=== PATIENT | female | born 1960 | race African-American/Black ===

== ENCOUNTER 2017-06-11 10:14 | Emergency (ER) | payer MEDICARE, MEDICAID ==
[~2017-06-11] VITALS: Ht 167.6 cm; Wt 75.7 kg
[2017-06-11 10:30] VITALS: BP 144/92
== END 2017-06-11 11:16 | disposition left against medical advice (07) ==
LOC: ER 10:14
DX: R42 Dizziness and giddiness (principal); Z53.21 Procedure and treatment not carried out due to patient leaving prior to being seen by health care provider
CPT/HCPCS: 82962; 93005

== ENCOUNTER 2017-11-07 07:57 | Emergency (ER) | payer MEDICARE, MEDICAID ==
[~2017-11-07] VITALS: Ht 170.2 cm; Wt 74.4 kg
[2017-11-07 08:40] VITALS: BP 184/110
[2017-11-07 08:45] LABS: Urine Bacteria NONE SEEN /hpf (None Seen); Urine Blood TRACE /uL (Negative); Urine Specific Gravity 1.019 (1.001-1.035); Urine WBC 1 /hpf (0 - 5)
[2017-11-07 09:05] LABS: Basophils # (auto) 0.1 uL; Eosinophils # (auto) 0.1 uL; Eosinophils % (auto) 2.4 % (0.0-7.0); Hematocrit 35.1 % (36.0-46.0); Hemoglobin 12.4 g/dL (12.2-16.2); Lymphocytes % (auto) 36.6 % (10.0-50.0); Mean Corpuscular Hemoglobin 32.1 pg (28.0-32.0); Mean Corpuscular Hgb Conc. 35.2 g/dL (32.0-36.0); Monocytes # (auto) 0.5 uL; Monocytes % (auto) 8.3 % (0.0-12.0); Neutrophils # (auto) 2.8 uL; Neutrophils % (auto) 51.7 % (37.0-80.0); Nucleated Red Blood Cells % 0.1 %; Platelet Count (auto) 415 10^3/uL (140-450); Red Blood Cells 3.85 10^6/uL (4.0-5.20); Red Cell Distribution Width 12.7 % (11.8-14.3); White Blood Cell 5.5 10^3/uL (4.4-10.8)
[2017-11-07 09:27] LABS: Albumin 3.5 g/dL (3.4-5.0); BUN/Creatinine Ratio 12.7; Bilirubin, Total 0.4 mg/dL (0.2-1.0); Calcium 9.1 mg/dL (8.5-10.1)
[2017-11-07] MEDS ORDERED: NITROFURANTOIN (MONO) 100 mg CAP PO ONE (10:00)
== END 2017-11-07 11:26 | disposition home or self-care (01) ==
LOC: ER 07:57
DX: N39.0 Urinary tract infection, site not specified (principal); E11.9 Type 2 diabetes mellitus without complications; I10 Essential (primary) hypertension; E78.5 Hyperlipidemia, unspecified; J45.909 Unspecified asthma, uncomplicated; Z88.2 Allergy status to sulfonamides; Z88.1 Allergy status to other antibiotic agents; Z98.51 Tubal ligation status
CPT/HCPCS: 36415; 74176; 80053; 81001; 85025; 93005

== ENCOUNTER 2017-12-12 19:55 | Emergency (ER) | payer MEDICARE, MEDICAID ==
[~2017-12-12] VITALS: Ht 170.2 cm; Wt 75.7 kg
[2017-12-12 20:17] VITALS: BP 163/97
[2017-12-12 21:03] LABS: Basophils # (auto) 0.1 uL; Basophils % (auto) 1.3 % (0.0-2.0); Eosinophils # (auto) 0.2 uL; Eosinophils % (auto) 3.5 % (0.0-7.0); Hematocrit 38.5 % (36.0-46.0); Hemoglobin 13.2 g/dL (12.2-16.2); Lymphocytes # (auto) 2.2 uL; Lymphocytes % (auto) 38.9 % (10.0-50.0); Mean Corpuscular Hemoglobin 31.7 pg (28.0-32.0); Mean Corpuscular Hgb Conc. 34.3 g/dL (32.0-36.0); Mean Corpuscular Volume 92.6 fL (80.0-100.0); Monocytes # (auto) 0.5 uL; Monocytes % (auto) 8.2 % (0.0-12.0); Neutrophils # (auto) 2.7 uL; Neutrophils % (auto) 48.1 % (37.0-80.0); Nucleated Red Blood Cells % 0.2 %; Platelet Count (auto) 456 10^3/uL (140-450); Red Blood Cells 4.16 10^6/uL (4.0-5.20); Red Cell Distribution Width 12.9 % (11.8-14.3); White Blood Cell 5.6 10^3/uL (4.4-10.8)
[2017-12-12 21:17] LABS: INR 0.92 (0.9-1.15); Partial Thromboplastin Time 27.3 sec (23.78-33.04); Prothrombin Time 9.9 sec (9.27-12.13)
[2017-12-12 21:24] LABS: Alanine Aminotransferase 30 U/L (13-56); Albumin 3.9 g/dL (3.4-5.0); Alkaline Phosphatase 142 U/L (45-117); Anion Gap 9 (5-15); Aspartate Aminotransferase 15 U/L (15-37); BUN/Creatinine Ratio 12.9; Bilirubin, Total 0.4 mg/dL (0.2-1.0); Blood Urea Nitrogen 16 mg/dL (7-18); Calcium 9.1 mg/dL (8.5-10.1); Carbon Dioxide 26 mmol/L (21-32); Chloride 106 mmol/L (98-107); GFR African American 57 mL/min; GFR Non-African American 47 mL/min; Glucose 168 mg/dL (74-106); Potassium 3.5 mmol/L (3.5-5.1); Sodium 141 mmol/L (136-145); Total Protein 8.5 g/dL (6.4-8.2)
== END 2017-12-13 02:30 | disposition left against medical advice (07) ==
LOC: ER 19:55
DX: R03.0 Elevated blood-pressure reading, without diagnosis of hypertension (principal); Z53.21 Procedure and treatment not carried out due to patient leaving prior to being seen by health care provider
CPT/HCPCS: 36415; 70450; 80053; 83880; 84484; 85025; 85610; 85730; 93005; J7030

== ENCOUNTER 2018-06-17 15:26 | Emergency (ER) | payer MEDICARE, MEDICAID ==
[~2018-06-17] VITALS: Ht 170.2 cm; Wt 74.8 kg
[2018-06-17] MEDS ORDERED: LABETALOL HCL 5 MG/ML ML 20ML VIAL IV ONE ×3 (16:00→20:00)
[2018-06-17 17:12] LABS: Basophils # (auto) 0 uL; Basophils % (auto) 0.8 % (0.0-2.0); Eosinophils # (auto) 0.3 uL; Eosinophils % (auto) 4.8 % (0.0-7.0); Hematocrit 34.9 % (36.0-46.0); Hemoglobin 12.1 g/dL (12.2-16.2); Lymphocytes % (auto) 32.9 % (10.0-50.0); Mean Corpuscular Hemoglobin 32.1 pg (28.0-32.0); Mean Corpuscular Hgb Conc. 34.5 g/dL (32.0-36.0); Mean Corpuscular Volume 92.8 fL (80.0-100.0); Monocytes # (auto) 0.7 uL; Neutrophils # (auto) 3.1 uL; Neutrophils % (auto) 50.5 % (37.0-80.0); Nucleated Red Blood Cells % 0.1 %; Platelet Count (auto) 439 10^3/uL (140-450); Red Blood Cells 3.76 10^6/uL (4.0-5.20); Red Cell Distribution Width 12.3 % (11.8-14.3); White Blood Cell 6.2 10^3/uL (4.4-10.8)
[2018-06-17 17:28] LABS: Calcium 8.9 mg/dL (8.5-10.1); Chloride 108 mmol/L (98-107); Potassium 3.7 mmol/L (3.5-5.1); Sodium 139 mmol/L (136-145)
[2018-06-17 17:36] LABS: Alanine Aminotransferase 27 U/L (13-56); Albumin 3.3 g/dL (3.4-5.0); Alkaline Phosphatase 106 U/L (45-117); Anion Gap 5 (5-15); Aspartate Aminotransferase 16 U/L (15-37); BUN/Creatinine Ratio 13.1; Bilirubin, Total 0.3 mg/dL (0.2-1.0); Blood Urea Nitrogen 17 mg/dL (7-18); Carbon Dioxide 26 mmol/L (21-32); GFR African American 54 mL/min; GFR Non-African American 45 mL/min; Glucose 115 mg/dL (74-106); Magnesium 2.2 mg/dL (1.6-2.6); Total Protein 7.7 g/dL (6.4-8.2)
[2018-06-17] MEDS ORDERED: IOHEXOL 300 MG/ML 100ML BOTTLE IJ ONE (18:51)
[2018-06-17] MEDS ORDERED: hydrALAZINE HCL 20 MG/ML VL IV ONE (20:00)
[2018-06-17 21:55] VITALS: BP 162/95
[2018-06-17 22:39] LABS: Urine Bacteria NONE SEEN /hpf (None Seen); Urine Blood Negative /uL (Negative); Urine WBC 9 /hpf (0 - 5)
[2018-06-17 22:43] LABS: Urine Specific Gravity > 1.050 (1.001-1.035)
== END 2018-06-17 22:10 | disposition home or self-care (01) ==
LOC: ER 15:26
DX: R07.89 Other chest pain (principal); I10 Essential (primary) hypertension; E11.21 Type 2 diabetes mellitus with diabetic nephropathy; K62.5 Hemorrhage of anus and rectum; E44.1 Mild protein-calorie malnutrition; J45.909 Unspecified asthma, uncomplicated; E78.5 Hyperlipidemia, unspecified; Z68.25 Body mass index [BMI] 25.0-25.9, adult; Z98.51 Tubal ligation status; Z88.2 Allergy status to sulfonamides
CPT/HCPCS: 36415; 74177; 80053; 81001; 83735; 84484; 85025; 93005; 96374; 96375; 96376; 99284; J0360; Q9967

== ENCOUNTER 2018-08-25 16:04 | Emergency (ER) | payer MEDICARE, MEDICAID ==
[~2018-08-25] VITALS: Ht 170.2 cm; Wt 72.6 kg
[2018-08-25] MEDS ORDERED: cloNIDine HCL 0.1 MG TAB ONE (16:21)
[2018-08-25] MEDS ORDERED: NIFEdipine 10 MG CAP PO ONE (16:45)
[2018-08-25 17:31] VITALS: BP 172/94
== END 2018-08-25 17:32 | disposition home or self-care (01) ==
LOC: ER 16:07
DX: I16.0 Hypertensive urgency (principal); I10 Essential (primary) hypertension; J45.909 Unspecified asthma, uncomplicated; R51 Headache; E11.9 Type 2 diabetes mellitus without complications; E78.5 Hyperlipidemia, unspecified; Z98.51 Tubal ligation status; Z88.2 Allergy status to sulfonamides; Z88.6 Allergy status to analgesic agent

== ENCOUNTER → 2019-05-23 | Outpatient (CLI) | payer MEDICARE, MEDICAID ==
[~2019-05-23] MED LIST: ALBU2TAB4 PO; ASPI-498 OR; BENA5TAB5 PO; HYDR-531 PO; INSLANTI SC; IOHEXOL 350 MG/ML 100ML IJ ONE; METO25TA5 PO; NIFE10CA3 PO; ROSU1TAB12 PO
[2019-05-23 09:03] VITALS: BP 162/97
--- NOTE | 2019-05-23 09:03 | NUR ---
CHF PT ARRIVED AT THE CHF CLINIC FOR CT OF THE CAROTIDS. PT A/O X 3 0 DISTRESS VSS
--- NOTE | 2019-05-23 09:10 | NUR ---
IV insertion IV access obtained, via clean sterile technique by inserting 20 gauge catheter at after 1 attempt(s). IV secured properly. No trauma to site. Patient tolerated procedure well.
--- NOTE | 2019-05-23 10:35 | NUR ---
IV removal IV DC'd with sterile technique, catheter fully intact. Pressure dressing applied to site. Patient tolerated procedure well. Discharged with aftercare instructions per MD. NOTE:
[2019-05-23 10:40] VITALS: BP 137/81
--- NOTE | 2019-05-23 10:40 | NUR ---
Discharge Instructions See e-MAR for any mediations given with this visit. Patient education given on disease process. Patient verbalized understanding. Previous labs reviewed. Patient discharged in stable condition with after care instructions and follow up appointment. ENCOURAGED PATIENT TO HYDRATE CREA 1.30 PT VERBALIZED UNDERSTANDING TO HYDRATE WELL TODAY
== END | disposition home or self-care (01) ==
LOC: Rad HDHVI 08:43
PROVIDERS: ATTEND Internal Medicine
DX: I65.22 Occlusion and stenosis of left carotid artery (principal); R94.4 Abnormal results of kidney function studies; E78.5 Hyperlipidemia, unspecified; E11.9 Type 2 diabetes mellitus without complications; I10 Essential (primary) hypertension
CPT/HCPCS: 36415; 70498; 82565; G0463; Q9967

== ENCOUNTER → 2019-06-29 | Outpatient (CLI) | payer MEDICARE, MEDICAID ==
[~2019-06-29] MED LIST changes: +ASPI-404 PO; +CLOP75TA28 PO; +FOLI1TAB6 PO; +HYDR-4072 PO; -IOHEXOL 350 MG/ML 100ML IJ ONE; +METO-158 PO; +NIFE90TA49 PO; +PANT40T PO; +ROSU1TAB15 PO
[2019-06-29 10:10] VITALS: BP 150/97
[2019-06-29 10:35] VITALS: BP 153/101
--- NOTE | 2019-06-29 10:35 | NUR ---
Pre-Op Discharge Summary: See e-MAR for any medications given for this visit. Pre-op orders received and carried out per MD of EKG, LABS and chest xrays. Patient given a copy of EKG with instructions to go to [facility] out patient for further follow up care.
[2019-06-29 12:03] LABS: Basophils # (auto) 0 uL; Eosinophils # (auto) 0.2 uL; Hemoglobin 13.3 g/dL (12.2-16.2); Monocytes # (auto) 0.4 uL; Neutrophils # (auto) 3.1 uL; Nucleated Red Blood Cells % 0.1 %; White Blood Cell 5.9 10^3/uL (4.4-10.8)
[2019-06-29 12:05] LABS: Basophils % (auto) 0.6 % (0.0-2.0); Eosinophils % (auto) 2.9 % (0.0-7.0); Hematocrit 38.1 % (36.0-46.0); Lymphocytes # (auto) 2.1 uL; Lymphocytes % (auto) 36.2 % (10.0-50.0); Mean Corpuscular Hgb Conc. 34.8 g/dL (32.0-36.0); Mean Corpuscular Volume 91.9 fL (80.0-100.0); Monocytes % (auto) 6.9 % (0.0-12.0); Neutrophils % (auto) 53.4 % (37.0-80.0); Platelet Count (auto) 464 10^3/uL (140-450); Red Blood Cells 4.15 10^6/uL (4.0-5.20); Red Cell Distribution Width 12.8 % (11.8-14.3)
[2019-06-29 12:16] LABS: Potassium 3.9 mmol/L (3.5-5.1)
[2019-06-29 12:19] LABS: BUN/Creatinine Ratio 18.3; Calcium 9.6 mg/dL (8.5-10.1)
[2019-06-29 12:39] LABS: INR 0.97 (0.9-1.15); Partial Thromboplastin Time 27.2 sec (23.64-32.05)
== END | disposition home or self-care (01) ==
LOC: Rad HDHVI 09:50
PROVIDERS: ATTEND Internal Medicine
DX: Z01.812 Encounter for preprocedural laboratory examination (principal)
CPT/HCPCS: 36415; 71046; 80048; 85025; 85610; 85730; 93005; G0463

== ENCOUNTER 2019-09-06 10:04 | Emergency (ER) | payer MEDICARE, MEDICAID ==
[~2019-09-06] VITALS: Ht 170.2 cm; Wt 74.4 kg
[~2019-09-06 10:04] MED LIST changes: -ALBU2TAB4 PO; -ASPI-498 OR; -BENA5TAB5 PO; -HYDR-531 PO; -METO25TA5 PO; -NIFE10CA3 PO; -ROSU1TAB12 PO
[2019-09-06] MEDS ORDERED: LABETALOL HCL 5 MG/ML 4ML SYRINGE IV ONE (10:15)
[2019-09-06] MEDS ORDERED: cefTRIAXone 1GM/50ML D5W 50 ML IV ONE (10:15)
[2019-09-06 10:37] LABS: Eosinophils # (auto) 0.1 10 ^3/uL (0-0.8); Monocytes # (auto) 0.7 10 ^3/uL (0-1.3)
[2019-09-06 10:39] LABS: Basophils # (auto) 0.1 10 ^3/uL (0-0.2); Basophils % (auto) 0.7 % (0.0-2.0); Eosinophils % (auto) 1.3 % (0.0-7.0); Hematocrit 38.3 % (36.0-46.0); Hemoglobin 12.9 g/dL (12.2-16.2); Lymphocytes % (auto) 27.3 % (10.0-50.0); Mean Corpuscular Hgb Conc. 33.8 g/dL (32.0-36.0); Mean Corpuscular Volume 91.8 fL (80.0-100.0); Monocytes % (auto) 9.5 % (0.0-12.0); Neutrophils # (auto) 4.6 10 ^3/uL (1.6-8.6); Neutrophils % (auto) 61.2 % (37.0-80.0); Platelet Count (auto) 467 10^3/uL (140-450); Red Blood Cells 4.17 10^6/uL (4.0-5.20); Red Cell Distribution Width 12.9 % (11.8-14.3); White Blood Cell 7.5 10^3/uL (4.4-10.8)
[2019-09-06] MEDS ORDERED: cefTRIAXone SOD 1,000 MG VL IM ONE (10:45)
[2019-09-06 11:05] LABS: Albumin 3.5 g/dL (3.4-5.0); Anion Gap 6 (5-15); Blood Urea Nitrogen 15 mg/dL (7-18); Calcium 9.3 mg/dL (8.5-10.1); Carbon Dioxide 26 mmol/L (21-32); Chloride 108 mmol/L (98-107); Glucose 112 mg/dL (74-106); Potassium 3.7 mmol/L (3.5-5.1); Sodium 140 mmol/L (136-145)
[2019-09-06 11:11] LABS: Alanine Aminotransferase 57 U/L (13-56); Alkaline Phosphatase 188 U/L (45-117); Aspartate Aminotransferase 29 U/L (15-37); BUN/Creatinine Ratio 13.9; Bilirubin, Total 0.3 mg/dL (0.2-1.0); GFR African American 67 mL/min; GFR Non-African American 55 mL/min; Total Protein 8.7 g/dL (6.4-8.2)
[2019-09-06 12:23] VITALS: BP 149/83
== END 2019-09-06 12:26 | disposition home or self-care (01) ==
LOC: ER 10:04 → EDBD 10:04 → ER 12:26
DX: I10 Essential (primary) hypertension (principal); J40 Bronchitis, not specified as acute or chronic; R51 Headache; R42 Dizziness and giddiness; E11.9 Type 2 diabetes mellitus without complications; E78.5 Hyperlipidemia, unspecified; Z98.51 Tubal ligation status
CPT/HCPCS: 36415; 71045; 80053; 84484; 85025; 93005; 96372; 99285; J0696

== ENCOUNTER 2019-09-11 13:13 | Emergency (ER) | payer MEDICARE, MEDICAID ==
[~2019-09-11] VITALS: Ht 170.2 cm; Wt 74.4 kg
[2019-09-11 14:49] VITALS: BP 125/76
== END 2019-09-11 15:06 | disposition home or self-care (01) ==
LOC: ER 13:13
DX: J20.9 Acute bronchitis, unspecified (principal); J45.909 Unspecified asthma, uncomplicated; E11.9 Type 2 diabetes mellitus without complications; I10 Essential (primary) hypertension; E78.5 Hyperlipidemia, unspecified; Z79.2 Long term (current) use of antibiotics; Z79.899 Other long term (current) drug therapy; Z79.01 Long term (current) use of anticoagulants; Z88.2 Allergy status to sulfonamides; Z88.8 Allergy status to other drugs, medicaments and biological substances
CPT/HCPCS: 71046; 87804; 93005

== ENCOUNTER → 2020-01-17 | Outpatient (CLI) | payer MEDICARE, MEDICAID | END | disposition home or self-care (01) | LOC: Rad HDHVI 10:33 | PROVIDERS: ATTEND Internal Medicine Cardiovascular Disease | DX: I08.2 Rheumatic disorders of both aortic and tricuspid valves (principal); I25.10 Atherosclerotic heart disease of native coronary artery without angina pectoris; I10 Essential (primary) hypertension; I77.9 Disorder of arteries and arterioles, unspecified; I77.819 Aortic ectasia, unspecified site | CPT/HCPCS: 93306 ==

== ENCOUNTER → 2020-01-31 | Outpatient (CLI) | payer MEDICARE, MEDICAID ==
[~2020-01-31] VITALS: Ht 170.2 cm; Wt 77.1 kg
[~2020-01-31] MED LIST changes: +ADENOSINE 65 MG in GIVE UN-DILUTED 0 ML IV ONE; +ADENOSINE 90 MG/30 ML INJ IV ONE; +ALBUTEROL SULF 2.5 MG/0.5ML(0.5%) NEB SOLN ONE; -ASPI-404 PO; +ASPI-543 PO; +ATOR10TA52 PO; +HCTZ25T GT; +HYDR-531 PO; +INSUINJ18 SC
== END | disposition home or self-care (01) ==
LOC: Rad HDHVI 08:44
PROVIDERS: ATTEND Internal Medicine
DX: I65.29 Occlusion and stenosis of unspecified carotid artery (principal); I25.10 Atherosclerotic heart disease of native coronary artery without angina pectoris; I10 Essential (primary) hypertension; E11.9 Type 2 diabetes mellitus without complications; J44.9 Chronic obstructive pulmonary disease, unspecified; E78.00 Pure hypercholesterolemia, unspecified; R60.0 Localized edema; R07.9 Chest pain, unspecified
CPT/HCPCS: 78452; 93005; 94640; 96374; 96375; A9500; J0153

== ENCOUNTER 2020-02-24 10:42 | Inpatient (IN) | payer MEDICARE, MEDICAID ==
[~2020-02-24] VITALS: Ht 170.2 cm; Wt 77.4 kg
[~2020-02-24 10:42] MED LIST changes: -ADENOSINE 65 MG in GIVE UN-DILUTED 0 ML IV ONE; -ADENOSINE 90 MG/30 ML INJ IV ONE; -ALBUTEROL SULF 2.5 MG/0.5ML(0.5%) NEB SOLN ONE; -ATOR10TA52 PO; -HCTZ25T GT; -HYDR-531 PO; -INSUINJ18 SC
[2020-02-24 12:09] LABS: Basophils # (auto) 0.1 10 ^3/uL (0-0.2); Basophils % (auto) 0.5 % (0.0-2.0); Neutrophils # (auto) 12.1 10 ^3/uL (1.6-8.6); White Blood Cell 15.1 10^3/uL (4.4-10.8)
[2020-02-24 12:11] LABS: Eosinophils # (auto) 0.1 10 ^3/uL (0-0.8); Eosinophils % (auto) 0.4 % (0.0-7.0); Hematocrit 39.7 % (36.0-46.0); Hemoglobin 13.2 g/dL (12.2-16.2); Lymphocytes # (auto) 1.7 10 ^3/uL (0.4-5.4); Lymphocytes % (auto) 11.5 % (10.0-50.0); Mean Corpuscular Hgb Conc. 33.2 g/dL (32.0-36.0); Mean Corpuscular Volume 93.3 fL (80.0-100.0); Monocytes % (auto) 6.9 % (0.0-12.0); Neutrophils % (auto) 80.7 % (37.0-80.0); Platelet Count (auto) 510 10^3/uL (140-450); Red Blood Cells 4.25 10^6/uL (4.0-5.20); Red Cell Distribution Width 12.5 % (11.8-14.3)
[2020-02-24 12:21] LABS: Albumin 3.7 g/dL (3.4-5.0); Calcium 9.6 mg/dL (8.5-10.1); Magnesium 2.4 mg/dL (1.6-2.6); Potassium 3.7 mmol/L (3.5-5.1)
[2020-02-24 12:24] LABS: BUN/Creatinine Ratio 16.3; Bilirubin, Total 0.6 mg/dL (0.2-1.0); Total Protein 8.5 g/dL (6.4-8.2)
[2020-02-24 12:26] LABS: INR 0.92 (0.9-1.15); Partial Thromboplastin Time 24.2 sec (23.0-31.2)
[2020-02-24] MEDS ORDERED: MEPERIDINE HCL (25 MG/ML) 1ML VIAL IV ONE (13:30)
[2020-02-24] MEDS ORDERED: ONDANSETRON HCL 4 MG/2 ML VIAL IV ONE (13:30)
[2020-02-24] MEDS ORDERED: NITROGLYCERIN 0.4 MG SL TAB SL PRN (14:15)
[2020-02-24] MEDS ORDERED: MORPHINE SULF INJ 2 MG/ML SYRINGE 1ML IV PRN (14:15)
[2020-02-24] MEDS ORDERED: ACETAMINOPHEN 500 MG TAB PO PRN (14:30)
[2020-02-24] MEDS ORDERED: PROMETHAZINE HCL 25 MG/ML 1ML IV PRN (14:30)
[2020-02-24] MEDS ORDERED: HYDROcodone-ACET 5/325MG TAB PO PRN (14:30)
[2020-02-24] MEDS ORDERED: HYDROmorphone HCL 2 MG/ML VL IV PRN (14:30)
[2020-02-24] MEDS ORDERED: DEXTROSE (50%) 50ML SYRG IV PRN (14:30)
[2020-02-24] MEDS ORDERED: cefTRIAXone 1GM/50ML D5W 50 ML IV ONE (14:30)
[2020-02-24] MEDS: SODIUM CHLORIDE 0.9% 1,000 ML IV SCH (14:32)
[2020-02-24] MEDS: InsuLIN REG 1unit/0.01ml Soln (100units/ml) SC SCH ×2 (17:38→21:51)
[2020-02-24] MEDS: ACCU-CHEK COMFORT CURVE STRIP VI SCH ×2 (17:38→21:51)
[2020-02-24 20:00] VITALS: BP 121/59
[2020-02-24 20:40] VITALS: BP 141/85
[2020-02-24] MEDS: FAMOTIDINE 20 MG TAB PO SCH (21:50)
[2020-02-24 22:00] VITALS: BP 121/59
[2020-02-25] MEDS: SODIUM CHLORIDE 0.9% 1,000 ML IV SCH ×3 (00:18→20:20)
[2020-02-25] MEDS ORDERED: INSUINJ18 SC (02:10)
[2020-02-25] MEDS ORDERED: HCTZ25T GT (02:10)
[2020-02-25] MEDS ORDERED: HYDR-531 PO (02:10)
[2020-02-25] MEDS ORDERED: ATOR10TA52 PO (02:10)
[2020-02-25 05:00] VITALS: BP 151/87
[2020-02-25] MEDS: InsuLIN REG 1unit/0.01ml Soln (100units/ml) SC SCH ×4 (06:10→22:19)
[2020-02-25] MEDS: ACCU-CHEK COMFORT CURVE STRIP VI SCH ×4 (06:10→22:25)
[2020-02-25 08:05] LABS: Eosinophils # (auto) 0.1 10 ^3/uL (0-0.8); Monocytes # (auto) 0.7 10 ^3/uL (0-1.3); Nucleated Red Blood Cells % 0.1 %; Red Cell Distribution Width 12.9 % (11.8-14.3)
[2020-02-25 08:07] LABS: Basophils # (auto) 0.1 10 ^3/uL (0-0.2); Basophils % (auto) 0.6 % (0.0-2.0); Eosinophils % (auto) 0.8 % (0.0-7.0); Hematocrit 39.7 % (36.0-46.0); Hemoglobin 12.8 g/dL (12.2-16.2); Lymphocytes % (auto) 22.5 % (10.0-50.0); Mean Corpuscular Hemoglobin 30.3 pg (28.0-32.0); Mean Corpuscular Hgb Conc. 32.2 g/dL (32.0-36.0); Mean Corpuscular Volume 94.2 fL (80.0-100.0); Monocytes % (auto) 7.6 % (0.0-12.0); Neutrophils # (auto) 6.1 10 ^3/uL (1.6-8.6); Neutrophils % (auto) 68.5 % (37.0-80.0); Platelet Count (auto) 485 10^3/uL (140-450); Red Blood Cells 4.22 10^6/uL (4.0-5.20); White Blood Cell 8.9 10^3/uL (4.4-10.8)
[2020-02-25 08:28] LABS: Albumin 3.3 g/dL (3.4-5.0); BUN/Creatinine Ratio 13.5; Calcium 9.3 mg/dL (8.5-10.1); Potassium 3.8 mmol/L (3.5-5.1)
[2020-02-25 08:31] LABS: Bilirubin, Total 0.5 mg/dL (0.2-1.0); Total Protein 7.9 g/dL (6.4-8.2)
[2020-02-25 09:00] VITALS: BP 145/86
[2020-02-25] MEDS: FAMOTIDINE 20 MG TAB PO SCH ×2 (09:16→22:22)
[2020-02-25] MEDS: cefTRIAXone 1GM/50ML D5W 50 ML IV SCH (09:16)
[2020-02-25 09:26] LABS: Urine Bacteria NONE SEEN /hpf (None Seen); Urine Blood TRACE /uL (Negative); Urine Specific Gravity 1.016 (1.001-1.035); Urine WBC <1 /hpf (0 - 5)
[2020-02-25] MEDS: METOPROLOL TARTRATE 50 MG TAB PO SCH ×2 (12:57→22:23)
[2020-02-25 13:00] VITALS: BP 169/103
[2020-02-25 14:38] VITALS: BP 147/94
[2020-02-25 17:00] VITALS: BP 150/103
[2020-02-25 22:30] VITALS: BP 152/80
[2020-02-26 05:12] VITALS: BP 169/113
[2020-02-26] MEDS: SODIUM CHLORIDE 0.9% 1,000 ML IV SCH (06:35)
[2020-02-26] MEDS: ACCU-CHEK COMFORT CURVE STRIP VI SCH ×2 (06:36→11:30)
[2020-02-26] MEDS: InsuLIN REG 1unit/0.01ml Soln (100units/ml) SC SCH ×2 (06:38→12:31)
[2020-02-26 09:00] VITALS: BP 142/77
[2020-02-26] MEDS: METOPROLOL TARTRATE 50 MG TAB PO SCH (09:26)
[2020-02-26] MEDS: cefTRIAXone 1GM/50ML D5W 50 ML IV SCH (09:26)
[2020-02-26] MEDS: FAMOTIDINE 20 MG TAB PO SCH (09:26)
[2020-02-26] MEDS ORDERED: NIFEdipine ER 30 MG TAB PO ONE (12:00)
[2020-02-26 13:00] VITALS: BP 167/107
[2020-02-26 13:11] VITALS: BP 142/77
== END 2020-02-26 16:20 | disposition home or self-care (01) | DRG 554 ==
LOC: ER 10:42 → EDBD 10:42 → TELE 10:43 → TELE-WESTW 20:24
PROVIDERS: ADMIT Internal Medicine; ATTEND Family Medicine
DX: M16.0 Bilateral primary osteoarthritis of hip (principal); E11.22 Type 2 diabetes mellitus with diabetic chronic kidney disease; J45.909 Unspecified asthma, uncomplicated; E78.5 Hyperlipidemia, unspecified; M54.5 Low back pain; G89.29 Other chronic pain; I12.9 Hypertensive chronic kidney disease with stage 1 through stage 4 chronic kidney disease, or unspecified chronic kidney disease; N18.3 Chronic kidney disease, stage 3 (moderate); E66.9 Obesity, unspecified; E11.65 Type 2 diabetes mellitus with hyperglycemia; D72.829 Elevated white blood cell count, unspecified; E11.40 Type 2 diabetes mellitus with diabetic neuropathy, unspecified; E78.00 Pure hypercholesterolemia, unspecified; I25.10 Atherosclerotic heart disease of native coronary artery without angina pectoris; K57.90 Diverticulosis of intestine, part unspecified, without perforation or abscess without bleeding; Z83.3 Family history of diabetes mellitus; Z68.26 Body mass index [BMI] 26.0-26.9, adult; Z82.49 Family history of ischemic heart disease and other diseases of the circulatory system
CPT/HCPCS: 36415; 71045; 72192; 80053; 81001; 82962; 83036; 83735; 85025; 85610; 85652; 85730; 87086; G0378; J0696; J1815; J2405

== ENCOUNTER → 2020-10-16 | Day surgery (SDC) | payer MEDICARE, MEDICAID ==
[2020-10-14 11:58] LABS: Basophils # (auto) 0 10 ^3/uL (0-0.2); Basophils % (auto) 0.6 % (0.0-2.0); Eosinophils # (auto) 0.2 10 ^3/uL (0-0.8); Eosinophils % (auto) 2.9 % (0.0-7.0); Hematocrit 37.1 % (36.0-46.0); Hemoglobin 12.8 g/dL (12.2-16.2); Lymphocytes % (auto) 30.6 % (10.0-50.0); Mean Corpuscular Hemoglobin 31.8 pg (28.0-32.0); Mean Corpuscular Hgb Conc. 34.6 g/dL (32.0-36.0); Mean Corpuscular Volume 91.8 fL (80.0-100.0); Monocytes # (auto) 0.4 10 ^3/uL (0-1.3); Monocytes % (auto) 5.6 % (0.0-12.0); Neutrophils # (auto) 3.9 10 ^3/uL (1.6-8.6); Neutrophils % (auto) 60.3 % (37.0-80.0); Platelet Count (auto) 521 10^3/uL (140-450); Red Blood Cells 4.04 10^6/uL (4.0-5.20); Red Cell Distribution Width 12.6 % (11.8-14.3); White Blood Cell 6.5 10^3/uL (4.4-10.8)
[2020-10-14 12:16] LABS: INR 0.95 (0.9-1.15); Partial Thromboplastin Time 25.9 sec (23.0-31.2)
[~2020-10-16] VITALS: Ht 170.2 cm; Wt 74.4 kg
[~2020-10-16] MED LIST changes: +ALBU0.084 IN; +ATOR10TA52 PO; +DexAMETHasone SOD PHOS 10MG/1ML VIAL INJ ONE; -FOLI1TAB6 PO; -HYDR-4072 PO; +HYDR-531 PO; +INSUINJ18 SC; +LABETALOL HCL 5 MG/ML 4ML SYRINGE IV PRN; +LIDOCAINE VISCOUS 2% 15ML UD ONE; +METH-532 PO; -METO-158 PO; +METO-289 PO; +METR500T14 PO; +MIDAZOLAM HCL 1MG/1ML-2 ML VIAL IV PRN; +MIDAZOLAM HCL 1MG/1ML-2 ML VIAL ONE; +ONDANSETRON HCL 4 MG/2 ML VIAL IV PRN; +PANT1INJ3 PO; -PANT40T PO; +RANO500T2 PO; -ROSU1TAB15 PO; +ePHEDrine SULFATE 50 MG/ML AMP IV PRN; +fentaNYL CITRATE 100 MCG/2 ML VL IV PRN; +fentaNYL CITRATE 100 MCG/2 ML VL ONE
[2020-10-16 11:15] LABS: BUN/Creatinine Ratio 14.3; Calcium 8.8 mg/dL (8.5-10.1); Potassium 3.4 mmol/L (3.5-5.1)
[2020-10-16 11:40] VITALS: BP 124/78
== END | disposition home or self-care (01) ==
LOC: GI 08:50
PROVIDERS: ATTEND Internal Medicine Gastroenterology
DX: R13.10 Dysphagia, unspecified (principal); R10.13 Epigastric pain; I10 Essential (primary) hypertension; E11.9 Type 2 diabetes mellitus without complications; E78.00 Pure hypercholesterolemia, unspecified; J45.909 Unspecified asthma, uncomplicated; G47.33 Obstructive sleep apnea (adult) (pediatric); G89.29 Other chronic pain; Z88.5 Allergy status to narcotic agent; Z88.8 Allergy status to other drugs, medicaments and biological substances; Z79.4 Long term (current) use of insulin; Z79.82 Long term (current) use of aspirin; Z79.899 Other long term (current) drug therapy; Z98.51 Tubal ligation status; Z98.891 History of uterine scar from previous surgery; Z96.89 Presence of other specified functional implants; Z98.890 Other specified postprocedural states; Z82.49 Family history of ischemic heart disease and other diseases of the circulatory system; Z83.3 Family history of diabetes mellitus
CPT/HCPCS: 36415; 43235; 43450; 71045; 80048; 82962; 85025; 85610; 85730; J1100; J2250; J3010; J7030; U0003

== ENCOUNTER 2021-03-16 11:36 | Inpatient (IN) | payer MEDICARE, MEDICAID ==
[~2021-03-16] VITALS: Ht 162.6 cm; Wt 74.4 kg
[~2021-03-16 11:36] MED LIST changes: -DexAMETHasone SOD PHOS 10MG/1ML VIAL INJ ONE; -LABETALOL HCL 5 MG/ML 4ML SYRINGE IV PRN; -LIDOCAINE VISCOUS 2% 15ML UD ONE; -MIDAZOLAM HCL 1MG/1ML-2 ML VIAL IV PRN; -MIDAZOLAM HCL 1MG/1ML-2 ML VIAL ONE; -ONDANSETRON HCL 4 MG/2 ML VIAL IV PRN; -ePHEDrine SULFATE 50 MG/ML AMP IV PRN; -fentaNYL CITRATE 100 MCG/2 ML VL IV PRN; -fentaNYL CITRATE 100 MCG/2 ML VL ONE
[2021-03-16] MEDS ORDERED: MORPHINE SULFATE 4 MG/ML SYR/VIAL IV ONE (12:00)
[2021-03-16] MEDS ORDERED: SODIUM CHLORIDE 0.9% 1,000 ML IVB ONE (12:00)
[2021-03-16] MEDS ORDERED: ONDANSETRON HCL 4 MG/2 ML VIAL IV ONE (12:00)
[2021-03-16 12:19] LABS: Basophils # (auto) 0 10 ^3/uL (0-0.2); Basophils % (auto) 0.4 % (0.0-2.0); Eosinophils # (auto) 0.1 10 ^3/uL (0-0.8); Eosinophils % (auto) 0.8 % (0.0-7.0); Hematocrit 38.9 % (36.0-46.0); Hemoglobin 13.5 g/dL (12.2-16.2); Lymphocytes # (auto) 1.9 10 ^3/uL (0.4-5.4); Lymphocytes % (auto) 18.4 % (10.0-50.0); Mean Corpuscular Hemoglobin 32.1 pg (28.0-32.0); Mean Corpuscular Hgb Conc. 34.7 g/dL (32.0-36.0); Mean Corpuscular Volume 92.5 fL (80.0-100.0); Monocytes # (auto) 0.7 10 ^3/uL (0-1.3); Monocytes % (auto) 6.7 % (0.0-12.0); Neutrophils # (auto) 7.8 10 ^3/uL (1.6-8.6); Neutrophils % (auto) 73.7 % (37.0-80.0); Red Cell Distribution Width 12.9 % (11.8-14.3); White Blood Cell 10.6 10^3/uL (4.4-10.8)
[2021-03-16 12:35] LABS: Chloride 106 mmol/L (98-107); Potassium 3.4 mmol/L (3.5-5.1); Sodium 138 mmol/L (136-145)
[2021-03-16 12:47] LABS: Alanine Aminotransferase 39 U/L (13-56); Albumin 3.5 g/dL (3.4-5.0); Alkaline Phosphatase 123 U/L (45-117); Anion Gap 9 (5-15); Aspartate Aminotransferase 20 U/L (15-37); BUN/Creatinine Ratio 11.9; Bilirubin, Total 0.6 mg/dL (0.2-1.0); Blood Urea Nitrogen 18 mg/dL (7-18); Calcium 9.6 mg/dL (8.5-10.1); Carbon Dioxide 23 mmol/L (21-32); GFR African American 45 mL/min; GFR Non-African American 37 mL/min; Glucose 230 mg/dL (74-106); Lipase 144 U/L (73-393); Total Protein 8.4 g/dL (6.4-8.2)
[2021-03-16] MEDS ORDERED: cefTRIAXone 1GM/50ML D5W 50 ML IV ONE (13:15)
[2021-03-16] MEDS ORDERED: metroNIDAZOLE 500MG/100ML 100 ML IV ONE (13:15)
[2021-03-16] MEDS ORDERED: DEXTROSE (50%) 50ML SYRG IV PRN (21:30)
[2021-03-16] MEDS ORDERED: TEMAZEPAM 15 MG CAP PO PRN (21:30)
[2021-03-16] MEDS ORDERED: ONDANSETRON HCL 4 MG/2 ML VIAL IV PRN (21:30)
[2021-03-16] MEDS ORDERED: ACETAMINOPHEN 325 MG TAB PO PRN (21:30)
[2021-03-16] MEDS ORDERED: ATORVASTATIN 20 MG TAB PO SCH (22:00)
[2021-03-16] MEDS: METOPROLOL TARTRATE 50 MG TAB PO SCH (22:20)
[2021-03-16] MEDS: RANOLAZINE ER 500 MG TAB PO SCH (22:20)
[2021-03-17] MEDS: metroNIDAZOLE 500MG/100ML 100 ML IV SCH ×4 (00:42→22:15)
[2021-03-17 01:52] VITALS: BP 142/91
[2021-03-17] MEDS: ACCU-CHEK COMFORT CURVE STRIP VI SCH ×4 (02:15→17:19)
[2021-03-17] MEDS: InsuLIN REG 1unit/0.01ml Soln (100units/ml) SC SCH ×4 (02:15→17:20)
[2021-03-17] MEDS ORDERED: HYDR12.56 PO (02:34)
[2021-03-17] MEDS ORDERED: LOSA-69 PO (02:34)
[2021-03-17 02:38] LABS: Urine Bacteria NONE SEEN /hpf (None Seen); Urine Blood Negative /uL (Negative); Urine Specific Gravity 1.014 (1.001-1.035); Urine WBC 6 /hpf (0 - 5)
[2021-03-17] MEDS: HYDROcodone-ACET 5/325MG TAB PO PRN (03:06)
[2021-03-17 05:00] VITALS: BP 133/82
[2021-03-17 05:05] LABS: Basophils # (auto) 0 10 ^3/uL (0-0.2); Basophils % (auto) 0.5 % (0.0-2.0); Eosinophils # (auto) 0.1 10 ^3/uL (0-0.8); Eosinophils % (auto) 1.1 % (0.0-7.0); Hematocrit 33.5 % (36.0-46.0); Hemoglobin 11.6 g/dL (12.2-16.2); Lymphocytes # (auto) 1.8 10 ^3/uL (0.4-5.4); Mean Corpuscular Hemoglobin 31.7 pg (28.0-32.0); Mean Corpuscular Hgb Conc. 34.7 g/dL (32.0-36.0); Mean Corpuscular Volume 91.6 fL (80.0-100.0); Monocytes # (auto) 0.8 10 ^3/uL (0-1.3); Monocytes % (auto) 9.5 % (0.0-12.0); Neutrophils # (auto) 5.9 10 ^3/uL (1.6-8.6); Neutrophils % (auto) 67.9 % (37.0-80.0); Nucleated Red Blood Cells % 0.1 %; Red Blood Cells 3.66 10^6/uL (4.0-5.20); Red Cell Distribution Width 12.7 % (11.8-14.3); White Blood Cell 8.6 10^3/uL (4.4-10.8)
[2021-03-17 05:39] LABS: Albumin 2.9 g/dL (3.4-5.0); Potassium 3.2 mmol/L (3.5-5.1)
[2021-03-17 05:42] LABS: BUN/Creatinine Ratio 15.4
[2021-03-17 05:44] LABS: Bilirubin, Total 0.6 mg/dL (0.2-1.0); Total Protein 7.2 g/dL (6.4-8.2)
[2021-03-17 09:00] VITALS: BP 132/81
[2021-03-17] MEDS: METOPROLOL TARTRATE 50 MG TAB PO SCH ×2 (09:43→22:15)
[2021-03-17] MEDS: cefTRIAXone 1GM/50ML D5W 50 ML IV SCH (09:43)
[2021-03-17] MEDS: PANTOPRAZOLE 40 MG TAB PO SCH (09:44)
[2021-03-17] MEDS ORDERED: CLOPIDOGREL BISULFATE 75 MG TAB PO SCH (10:00)
[2021-03-17] MEDS ORDERED: MORPHINE SULFATE INJECTION 2 MG/ML SYRG IV PRN (10:45)
[2021-03-17] MEDS ORDERED: POTASSIUM CHL 20 Meq TABLET PO ONE (10:45)
[2021-03-17] MEDS: SODIUM CHLORIDE 0.9% 1,000 ML IV SCH (11:18)
[2021-03-17] MEDS: RANOLAZINE ER 500 MG TAB PO SCH ×2 (11:49→22:15)
[2021-03-17 13:00] VITALS: BP 143/83
[2021-03-17 16:43] VITALS: BP 132/81
[2021-03-17 22:00] VITALS: BP 138/87
[2021-03-18] MEDS: ACCU-CHEK COMFORT CURVE STRIP VI SCH ×5 (00:01→23:37)
[2021-03-18] MEDS: SODIUM CHLORIDE 0.9% 1,000 ML IV SCH (01:36)
[2021-03-18 04:54] LABS: Basophils # (auto) 0 10 ^3/uL (0-0.2); Basophils % (auto) 0.8 % (0.0-2.0); Eosinophils # (auto) 0.1 10 ^3/uL (0-0.8); Eosinophils % (auto) 2.2 % (0.0-7.0); Hematocrit 33.7 % (36.0-46.0); Hemoglobin 11.7 g/dL (12.2-16.2); Lymphocytes # (auto) 1.8 10 ^3/uL (0.4-5.4); Mean Corpuscular Hemoglobin 31.8 pg (28.0-32.0); Mean Corpuscular Hgb Conc. 34.6 g/dL (32.0-36.0); Mean Corpuscular Volume 91.9 fL (80.0-100.0); Monocytes # (auto) 0.5 10 ^3/uL (0-1.3); Monocytes % (auto) 9.2 % (0.0-12.0); Neutrophils # (auto) 3.3 10 ^3/uL (1.6-8.6); Neutrophils % (auto) 56.8 % (37.0-80.0); Red Blood Cells 3.67 10^6/uL (4.0-5.20); Red Cell Distribution Width 12.6 % (11.8-14.3); White Blood Cell 5.7 10^3/uL (4.4-10.8)
[2021-03-18 05:11] LABS: BUN/Creatinine Ratio 8.7; Potassium 3.4 mmol/L (3.5-5.1)
[2021-03-18 05:13] VITALS: BP 150/91
[2021-03-18] MEDS: InsuLIN REG 1unit/0.01ml Soln (100units/ml) SC SCH ×5 (06:00→23:39)
[2021-03-18] MEDS: metroNIDAZOLE 500MG/100ML 100 ML IV SCH (06:04)
[2021-03-18] MEDS: cefTRIAXone 1GM/50ML D5W 50 ML IV SCH (08:55)
[2021-03-18 09:00] VITALS: BP 144/99
[2021-03-18] MEDS ORDERED: POTASSIUM CHL 20 Meq TABLET PO ONE (10:00)
[2021-03-18] MEDS ORDERED: CLOPIDOGREL BISULFATE 75 MG TAB PO ONE (10:15)
[2021-03-18] MEDS: ASPirin 81 mg TAB PO SCH (10:43)
[2021-03-18] MEDS: PANTOPRAZOLE 40 MG TAB PO SCH (10:44)
[2021-03-18] MEDS: METOPROLOL TARTRATE 50 MG TAB PO SCH ×2 (10:44→21:39)
[2021-03-18] MEDS: RANOLAZINE ER 500 MG TAB PO SCH ×2 (11:37→21:39)
[2021-03-18 12:50] VITALS: BP 149/72
[2021-03-18] MEDS: metroNIDAZOLE 500 MG TAB PO SCH ×2 (14:51→21:39)
[2021-03-18 16:57] VITALS: BP 161/99
[2021-03-18 22:04] VITALS: BP 152/92
[2021-03-18] MEDS: HYDROcodone-ACET 5/325MG TAB PO PRN (23:26)
[2021-03-19 05:01] VITALS: BP 151/97
[2021-03-19 05:31] LABS: Basophils # (auto) 0 10 ^3/uL (0-0.2); Eosinophils # (auto) 0.1 10 ^3/uL (0-0.8); Monocytes # (auto) 0.6 10 ^3/uL (0-1.3); White Blood Cell 5.4 10^3/uL (4.4-10.8)
[2021-03-19 05:35] LABS: Basophils % (auto) 0.7 % (0.0-2.0); Eosinophils % (auto) 2.3 % (0.0-7.0); Hematocrit 34.1 % (36.0-46.0); Lymphocytes # (auto) 1.8 10 ^3/uL (0.4-5.4); Lymphocytes % (auto) 33.7 % (10.0-50.0); Mean Corpuscular Hemoglobin 32.5 pg (28.0-32.0); Mean Corpuscular Hgb Conc. 35.2 g/dL (32.0-36.0); Mean Corpuscular Volume 92.3 fL (80.0-100.0); Monocytes % (auto) 10.5 % (0.0-12.0); Neutrophils # (auto) 2.8 10 ^3/uL (1.6-8.6); Neutrophils % (auto) 52.8 % (37.0-80.0); Red Blood Cells 3.69 10^6/uL (4.0-5.20); Red Cell Distribution Width 12.4 % (11.8-14.3)
[2021-03-19] MEDS: metroNIDAZOLE 500 MG TAB PO SCH (05:44)
[2021-03-19] MEDS: ACCU-CHEK COMFORT CURVE STRIP VI SCH ×2 (05:49→11:58)
[2021-03-19] MEDS: InsuLIN REG 1unit/0.01ml Soln (100units/ml) SC SCH ×2 (05:49→11:59)
[2021-03-19 05:56] LABS: Calcium 9.3 mg/dL (8.5-10.1); Potassium 3.6 mmol/L (3.5-5.1)
[2021-03-19 05:58] LABS: BUN/Creatinine Ratio 12.3
[2021-03-19 08:00] VITALS: BP 165/96
[2021-03-19] MEDS: cefTRIAXone 1GM/50ML D5W 50 ML IV SCH (08:57)
[2021-03-19] MEDS ORDERED: CLOPIDOGREL BISULFATE 75 MG TAB PO SCH (10:00)
[2021-03-19] MEDS: PANTOPRAZOLE 40 MG TAB PO SCH (10:29)
[2021-03-19] MEDS: RANOLAZINE ER 500 MG TAB PO SCH (10:29)
[2021-03-19] MEDS: METOPROLOL TARTRATE 50 MG TAB PO SCH (10:29)
[2021-03-19] MEDS: ASPirin 81 mg TAB PO SCH (10:29)
[2021-03-19 11:51] VITALS: BP 165/96
== END 2021-03-19 12:20 | disposition home or self-care (01) | DRG 392 ==
LOC: ER 11:36 → OVERFLOW 21:27 → CENTRAL 23:49
PROVIDERS: ADMIT Nurse Practitioner; ATTEND Internal Medicine
DX: K57.32 Diverticulitis of large intestine without perforation or abscess without bleeding (principal); N39.0 Urinary tract infection, site not specified; E11.65 Type 2 diabetes mellitus with hyperglycemia; J45.909 Unspecified asthma, uncomplicated; E78.5 Hyperlipidemia, unspecified; E66.9 Obesity, unspecified; I25.10 Atherosclerotic heart disease of native coronary artery without angina pectoris; M19.90 Unspecified osteoarthritis, unspecified site; I12.9 Hypertensive chronic kidney disease with stage 1 through stage 4 chronic kidney disease, or unspecified chronic kidney disease; Z20.822 Contact with and (suspected) exposure to COVID-19; E11.22 Type 2 diabetes mellitus with diabetic chronic kidney disease; N18.31 Chronic kidney disease, stage 3a; Z88.5 Allergy status to narcotic agent; Z88.8 Allergy status to other drugs, medicaments and biological substances; Z68.31 Body mass index [BMI] 31.0-31.9, adult; Z83.3 Family history of diabetes mellitus; Z82.49 Family history of ischemic heart disease and other diseases of the circulatory system
CPT/HCPCS: 36415; 74176; 80048; 80053; 81001; 82962; 83036; 83605; 83690; 84484; 85025; 87040; 87086; 87426; 93005; 96365; G0378; J0696; J1815; J3490

== ENCOUNTER 2021-06-30 09:47 | Emergency (ER) | payer MEDICARE, MEDICAID ==
[~2021-06-30] VITALS: Ht 162.6 cm; Wt 72.6 kg
[~2021-06-30 09:47] MED LIST changes: +HYDR12.56 PO; +LOSA-69 PO
[2021-06-30 12:41] LABS: Basophils # (auto) 0.1 10 ^3/uL (0-0.2); Basophils % (auto) 1.3 % (0.0-2.0); Eosinophils # (auto) 0.2 10 ^3/uL (0-0.8); Hematocrit 37.1 % (36.0-46.0); Hemoglobin 12.9 g/dL (12.2-16.2); Lymphocytes # (auto) 1.9 10 ^3/uL (0.4-5.4); Lymphocytes % (auto) 32.6 % (10.0-50.0); Mean Corpuscular Hemoglobin 31.9 pg (28.0-32.0); Mean Corpuscular Hgb Conc. 34.6 g/dL (32.0-36.0); Monocytes # (auto) 0.5 10 ^3/uL (0-1.3); Monocytes % (auto) 7.8 % (0.0-12.0); Neutrophils # (auto) 3.2 10 ^3/uL (1.6-8.6); Neutrophils % (auto) 55.3 % (37.0-80.0); Nucleated Red Blood Cells % 0.1 %; Red Blood Cells 4.04 10^6/uL (4.0-5.20); Red Cell Distribution Width 12.7 % (11.8-14.3); White Blood Cell 5.9 10^3/uL (4.4-10.8)
[2021-06-30 12:56] LABS: Albumin 3.6 g/dL (3.4-5.0); Calcium 9.4 mg/dL (8.5-10.1); Potassium 3.5 mmol/L (3.5-5.1)
[2021-06-30 13:03] LABS: BUN/Creatinine Ratio 10.7; Bilirubin, Total 0.5 mg/dL (0.2-1.0); Total Protein 8.7 g/dL (6.4-8.2)
[2021-06-30 20:45] VITALS: BP 186/111
== END 2021-06-30 20:52 | disposition home or self-care (01) ==
LOC: ER 09:47 → EDBD 09:47 → ER 20:52
DX: R51.9 Headache, unspecified (principal); M54.12 Radiculopathy, cervical region; I10 Essential (primary) hypertension; E11.9 Type 2 diabetes mellitus without complications; E78.5 Hyperlipidemia, unspecified; J45.909 Unspecified asthma, uncomplicated; Z79.82 Long term (current) use of aspirin; Z79.4 Long term (current) use of insulin; Z79.01 Long term (current) use of anticoagulants; Z79.899 Other long term (current) drug therapy; Z88.2 Allergy status to sulfonamides; Z88.8 Allergy status to other drugs, medicaments and biological substances
CPT/HCPCS: 36415; 70450; 71045; 72125; 80053; 84484; 85025; 93005

== ENCOUNTER → 2021-08-12 | Outpatient (CLI) | payer MEDICARE, MEDICAID ==
[~2021-08-12] VITALS: Ht 170.2 cm; Wt 70.8 kg
[~2021-08-12] MED LIST changes: +ACETAMINOPHEN 500 MG TAB PO ONE; +ADENOSINE 59 MG in GIVE UN-DILUTED 0 ML IV ONE; +ADENOSINE 90 MG/30 ML INJ IV ONE
== END | disposition home or self-care (01) ==
LOC: Rad HDHVI 09:01
PROVIDERS: ATTEND Internal Medicine
DX: I25.10 Atherosclerotic heart disease of native coronary artery without angina pectoris (principal); I10 Essential (primary) hypertension; I65.23 Occlusion and stenosis of bilateral carotid arteries; E11.9 Type 2 diabetes mellitus without complications; E78.5 Hyperlipidemia, unspecified; Z82.49 Family history of ischemic heart disease and other diseases of the circulatory system
CPT/HCPCS: 78452; 82962; 93005; 96374; 96375; A9500; J0153

== ENCOUNTER → 2022-05-27 | Outpatient (CLI) | payer MEDICARE, MEDICAID ==
[~2022-05-27] VITALS: Ht 170.2 cm; Wt 71.2 kg
[~2022-05-27] MED LIST changes: -ACETAMINOPHEN 500 MG TAB PO ONE; -ADENOSINE 59 MG in GIVE UN-DILUTED 0 ML IV ONE; +ADENOSINE 60 MG in GIVE UN-DILUTED 0 ML IV ONE
== END | disposition home or self-care (01) ==
LOC: Rad HDHVI 08:16
PROVIDERS: ATTEND Internal Medicine
DX: R07.9 Chest pain, unspecified (principal); I65.23 Occlusion and stenosis of bilateral carotid arteries; I25.10 Atherosclerotic heart disease of native coronary artery without angina pectoris; I10 Essential (primary) hypertension; E78.5 Hyperlipidemia, unspecified; E11.9 Type 2 diabetes mellitus without complications; Z82.49 Family history of ischemic heart disease and other diseases of the circulatory system
CPT/HCPCS: 78452; 93005; 96374; 96375; A9500; J0153

== ENCOUNTER → 2022-05-28 | Outpatient (CLI) | payer MEDICARE, MEDICAID ==
[~2022-05-28] MED LIST changes: -ADENOSINE 60 MG in GIVE UN-DILUTED 0 ML IV ONE; -ADENOSINE 90 MG/30 ML INJ IV ONE
== END | disposition home or self-care (01) ==
LOC: Rad HDHVI 07:59
PROVIDERS: ATTEND Internal Medicine
DX: I11.9 Hypertensive heart disease without heart failure (principal); R07.9 Chest pain, unspecified
CPT/HCPCS: 93306

== ENCOUNTER → 2022-07-28 | Outpatient (CLI) | payer MEDICARE, MEDICAID ==
[2022-07-28 10:24] LABS: Urine Blood Negative /uL (Negative)
[2022-07-28 10:37] LABS: Calcium 9.8 mg/dL (8.5-10.1); Eosinophils # (auto) 0.1 10 ^3/uL (0-0.8); Hemoglobin 12.9 g/dL (12.2-16.2); Monocytes # (auto) 0.5 10 ^3/uL (0-1.3); Nucleated Red Blood Cells % 0.1 %; Potassium 4.4 mmol/L (3.5-5.1)
[2022-07-28 10:40] LABS: Basophils # (auto) 0.1 10 ^3/uL (0-0.2); Basophils % (auto) 0.9 % (0.0-2.0); Eosinophils % (auto) 1.7 % (0.0-7.0); Hematocrit 37.1 % (36.0-46.0); Lymphocytes # (auto) 2.4 10 ^3/uL (0.4-5.4); Lymphocytes % (auto) 39.9 % (10.0-50.0); Mean Corpuscular Hemoglobin 32.2 pg (28.0-32.0); Mean Corpuscular Hgb Conc. 34.7 g/dL (32.0-36.0); Mean Corpuscular Volume 92.8 fL (80.0-100.0); Monocytes % (auto) 7.7 % (0.0-12.0); Neutrophils % (auto) 49.8 % (37.0-80.0); Red Blood Cells 3.99 10^6/uL (4.0-5.20); White Blood Cell 6.1 10^3/uL (4.4-10.8)
[2022-07-28 10:43] LABS: BUN/Creatinine Ratio 15.8; Bilirubin, Total 0.4 mg/dL (0.2-1.0); Total Protein 8.2 g/dL (6.4-8.2)
[2022-07-28 10:47] LABS: Free T4 (Free Thyroxine) 1.13 ng/dL (0.89-1.76)
== END | disposition home or self-care (01) ==
LOC: LAB 08:18
PROVIDERS: ATTEND Internal Medicine
DX: I10 Essential (primary) hypertension (principal); E55.9 Vitamin D deficiency, unspecified; N39.0 Urinary tract infection, site not specified
CPT/HCPCS: 36415; 80053; 80061; 81003; 82306; 82607; 83036; 84439; 84443; 85025; 87086

== ENCOUNTER 2022-08-08 19:26 | Emergency (ER) | payer MEDICARE, MEDICAID ==
[~2022-08-08] VITALS: Ht 170.2 cm; Wt 70.5 kg
[2022-08-08 22:29] LABS: Basophils # (auto) 0 10 ^3/uL (0-0.2); Basophils % (auto) 0.7 % (0.0-2.0); Monocytes # (auto) 0.4 10 ^3/uL (0-1.3); Neutrophils # (auto) 2.8 10 ^3/uL (1.6-8.6); Nucleated Red Blood Cells % 0.1 %; White Blood Cell 5.8 10^3/uL (4.4-10.8)
[2022-08-08 22:31] LABS: Eosinophils # (auto) 0.2 10 ^3/uL (0-0.8); Eosinophils % (auto) 2.6 % (0.0-7.0); Hematocrit 34.5 % (36.0-46.0); Hemoglobin 12.2 g/dL (12.2-16.2); Lymphocytes # (auto) 2.4 10 ^3/uL (0.4-5.4); Lymphocytes % (auto) 41.3 % (10.0-50.0); Mean Corpuscular Hemoglobin 32.8 pg (28.0-32.0); Mean Corpuscular Hgb Conc. 35.5 g/dL (32.0-36.0); Mean Corpuscular Volume 92.4 fL (80.0-100.0); Monocytes % (auto) 7.1 % (0.0-12.0); Neutrophils % (auto) 48.3 % (37.0-80.0); Red Blood Cells 3.73 10^6/uL (4.0-5.20)
[2022-08-08 22:43] LABS: INR 0.95 (0.9-1.15); Partial Thromboplastin Time 25.7 sec (24.6-33.4)
[2022-08-08 22:49] LABS: Albumin 3.8 g/dL (3.4-5.0); BUN/Creatinine Ratio 15.6; Calcium 9.6 mg/dL (8.5-10.1); Potassium 3.8 mmol/L (3.5-5.1)
[2022-08-08 22:51] LABS: Bilirubin, Total 0.3 mg/dL (0.2-1.0); Total Protein 8.3 g/dL (6.4-8.2)
[2022-08-09 01:04] VITALS: BP 143/87
== END 2022-08-09 01:05 | disposition home or self-care (01) ==
LOC: ER 19:27
DX: E87.8 Other disorders of electrolyte and fluid balance, not elsewhere classified (principal); M79.605 Pain in left leg; I12.9 Hypertensive chronic kidney disease with stage 1 through stage 4 chronic kidney disease, or unspecified chronic kidney disease; E11.22 Type 2 diabetes mellitus with diabetic chronic kidney disease; N18.9 Chronic kidney disease, unspecified; J45.909 Unspecified asthma, uncomplicated; E78.5 Hyperlipidemia, unspecified; Z88.5 Allergy status to narcotic agent; Z88.2 Allergy status to sulfonamides; Z88.8 Allergy status to other drugs, medicaments and biological substances; Z79.899 Other long term (current) drug therapy; Z98.890 Other specified postprocedural states
CPT/HCPCS: 36415; 80053; 82553; 84484; 85025; 85379; 85610; 85730; 93970

== ENCOUNTER 2023-10-04 09:18 | Day surgery (SDC) | payer MEDICARE, MEDICAID ==
[2023-10-03 10:36] LABS: Urine Bacteria None Seen /hpf (None Seen)
[2023-10-03 10:58] LABS: Basophils # (auto) 0 10 ^3/uL (0-0.2); Basophils % (auto) 0.9 % (0.0-2.0); Eosinophils # (auto) 0.2 10 ^3/uL (0-0.8); Eosinophils % (auto) 2.9 % (0.0-7.0); Lymphocytes # (auto) 2.2 10 ^3/uL (0.4-5.4); Monocytes # (auto) 0.4 10 ^3/uL (0-1.3); Nucleated Red Blood Cells % 0.1 %
[2023-10-03 11:00] LABS: Hematocrit 39.2 % (36.0-46.0); Hemoglobin 13.2 g/dL (12.2-16.2); Lymphocytes % (auto) 39.6 % (10.0-50.0); Mean Corpuscular Hgb Conc. 33.7 g/dL (32.0-36.0); Monocytes % (auto) 7.8 % (0.0-12.0); Neutrophils # (auto) 2.8 10 ^3/uL (1.6-8.6); Neutrophils % (auto) 48.8 % (37.0-80.0); Red Blood Cells 4.26 10^6/uL (4.0-5.20); Red Cell Distribution Width 12.4 % (11.8-14.3); White Blood Cell 5.7 10^3/uL (4.4-10.8)
[2023-10-03 11:01] LABS: INR 0.97 (0.9-1.15); Partial Thromboplastin Time 27.8 SEC (24.5-34.5); Prothrombin Time 10.2 sec (9.3-11.8)
[2023-10-03 11:11] LABS: Urine Blood Negative /uL (Negative); Urine Clarity Clear (Clear); Urine Color Light-Yellow (Yellow); Urine Mucus FEW (None Seen); Urine Protein, UAD 1+ (Negative); Urine Specific Gravity 1.022 (1.001-1.035); Urine Urobilinogen Normal (Negative); Urine WBC 4 /hpf (0 - 5); Urine pH 5.5 (5.0-9.0)
[2023-10-03 11:28] LABS: Alanine Aminotransferase 50 U/L (7-40); Albumin 4.9 g/dL (3.2-4.8); Alkaline Phosphatase 111 U/L (46-116); Anion Gap 7 (5-15); Aspartate Aminotransferase 36 U/L (13-40); BUN/Creatinine Ratio 12.7 (10.0-20.0); Bilirubin, Total 0.4 mg/dL (0.2-1.0); Blood Urea Nitrogen 18 mg/dL (9-23); Calcium 10.6 mg/dL (8.5-10.1); Carbon Dioxide 26 mmol/L (20-30); Chloride 105 mmol/L (98-107); Glucose 155 mg/dL (74-106); Sodium 138 mmol/L (136-145); Total Protein 8.3 g/dL (5.7-8.2)
[~2023-10-04] VITALS: Ht 170.2 cm; Wt 70.3 kg
[~2023-10-04 09:18] MED LIST changes: -ATOR10TA52 PO; +BENZ100C97 PO; +CHOLCAP4 PO; +DAPA1TAB4 PO; +DICY10CA PO; +EZET10TA22 PO; +FENO145T27 OR; +FINE10TA PO; -HYDR12.56 PO; -INSUINJ18 SC; +LACT10SO60 PO; -LOSA-69 PO; -METH-532 PO; -METO-289 PO; -METR500T14 PO; -NIFE90TA49 PO; +NIFE90TA75 PO; -PANT1INJ3 PO; -RANO500T2 PO; +SENN-58 PO
[2023-10-04] MEDS ORDERED: NALOXONE HCL 0.4 MG/ML VIAL ONE (09:23)
[2023-10-04] MEDS ORDERED: FLUMAZENIL 0.1 MG/ML INJ 10ML MDV IV ONE (09:23)
[2023-10-04] MEDS ORDERED: SODIUM CHLORIDE LOCK 10 ML ONE (09:24)
[2023-10-04 10:25] VITALS: O2SAT 98
[2023-10-04] MEDS: diphenhdrAMINE HCL 50 MG/1 ML VL ONE (10:31)
[2023-10-04] MEDS: MIDAZOLAM HCL 5 MG/ML-1ML VIAL ONE (10:31)
[2023-10-04] MEDS: fentaNYL CITRATE 100 MCG/2 ML VL ONE (10:31)
[2023-10-04 10:42] VITALS: TEMP 97.3
[2023-10-04 11:40] VITALS: BP 156/97; PULSE 81; RESP 12; O2SAT 96
== END 2023-10-04 12:00 | disposition home or self-care (01) ==
LOC: GI 09:18
PROVIDERS: ATTEND Internal Medicine Gastroenterology
DX: R10.32 Left lower quadrant pain (principal); K64.8 Other hemorrhoids; K56.699 Other intestinal obstruction unspecified as to partial versus complete obstruction; F41.9 Anxiety disorder, unspecified; E78.5 Hyperlipidemia, unspecified; G47.30 Sleep apnea, unspecified; J45.909 Unspecified asthma, uncomplicated; E11.9 Type 2 diabetes mellitus without complications; M19.90 Unspecified osteoarthritis, unspecified site; F32.A Depression, unspecified; Z88.6 Allergy status to analgesic agent; Z88.2 Allergy status to sulfonamides; Z88.8 Allergy status to other drugs, medicaments and biological substances; Z98.51 Tubal ligation status; Z98.891 History of uterine scar from previous surgery; Z82.49 Family history of ischemic heart disease and other diseases of the circulatory system; Z83.3 Family history of diabetes mellitus; Z79.82 Long term (current) use of aspirin; Z79.4 Long term (current) use of insulin; Z79.01 Long term (current) use of anticoagulants; Z98.890 Other specified postprocedural states; Z79.899 Other long term (current) drug therapy
CPT/HCPCS: 36415; 45378; 80053; 81001; 82962; 85025; 85610; 85730; J1200; J2250; J3010

== ENCOUNTER 2024-07-25 09:05 | Inpatient (IN) | payer MEDICARE, MEDICAID ==
[~2024-07-25] VITALS: Ht 170.2 cm; Wt 76.6 kg
--- NOTE | 2024-07-25 09:21 | ECG ---
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
[2024-07-25 09:44] LABS: Chloride 104 mmol/L (98-107); Potassium 3.9 mmol/L (3.5-5.1); Sodium 140 mmol/L (136-145)
[2024-07-25 09:45] LABS: Anion Gap 11 (5-15); Carbon Dioxide 25 mmol/L (20-31)
[2024-07-25 09:46] LABS: Basophils # (auto) 0.1 10 ^3/uL (0-0.2); Eosinophils # (auto) 0.3 10 ^3/uL (0-0.8); Hemoglobin 12.8 g/dL (12.2-16.2)
[2024-07-25 09:48] LABS: Basophils % (auto) 0.7 % (0.0-2.0); Eosinophils % (auto) 2.8 % (0.0-7.0); Hematocrit 37.2 % (36.0-46.0); Lymphocytes # (auto) 2.4 10 ^3/uL (0.4-5.4); Lymphocytes % (auto) 24.6 % (10.0-50.0); Mean Corpuscular Hemoglobin 31.3 pg (28.0-32.0); Mean Corpuscular Hgb Conc. 34.5 g/dL (32.0-36.0); Mean Corpuscular Volume 90.7 fL (80.0-100.0); Monocytes # (auto) 0.9 10 ^3/uL (0-1.3); Monocytes % (auto) 8.9 % (0.0-12.0); Neutrophils # (auto) 6.2 10 ^3/uL (1.6-8.6); Platelet Count (auto) 566 10^3/uL (140-450); Red Cell Distribution Width 12.5 % (11.8-14.3); White Blood Cell 9.8 10^3/uL (4.4-10.8)
[2024-07-25 09:50] LABS: Blood Urea Nitrogen 20 mg/dL (9-23)
[2024-07-25 10:00] LABS: Calcium 10.7 mg/dL (8.7-10.4); Glucose 216 mg/dL (74-106)
[2024-07-25] MEDS: SODIUM CHLORIDE 0.9% 1,000 ML IV ONE ×2 (10:03→11:20)
[2024-07-25] MEDS: ONDANSETRON HCL 4 MG/2 ML VIAL IV ONE (10:05)
[2024-07-25] MEDS: KETOROLAC TROMETH 30 MG/ML 1ML VIAL IV ONE ×2 (10:05→13:02)
[2024-07-25] MEDS: FAMOTIDINE (10MG/ML) 2ML VL IV ONE (10:05)
[2024-07-25 10:07] VITALS: PULSE 89; RESP 18; O2SAT 97
[2024-07-25] MEDS: ACETAMINOPHEN 325 MG TAB PO ONE (10:07)
--- NOTE | 2024-07-25 10:34 | DVH ---
EXAM: XY CHEST TWO VIEWS ROUTINE CLINICAL HISTORY: chest pain COMPARISON: 06/30/2021 TECHNIQUE: Frontal and lateral view of the chest was obtained FINDINGS: Lines and Tubes: None Lungs: No focal consolidation. Pleura: No effusion. No pneumothorax. Cardiomediastinal contours: Unremarkable Pulmonary vasculature: Within normal limits. Bones: No acute osseous abnormality. IMPRESSION: 1. No acute cardiopulmonary disease. HS:Y
[2024-07-25] MEDS: IOHEXOL 300 MG/ML 100ML BOTTLE IJ ONE (10:35)
--- NOTE | 2024-07-25 10:55 | DVH ---
Exam: CT CT AB PEL WITH IV CON ONLY History: abdominal pain TECHNIQUE: A digital overhead crane technician image was obtained. During the uneventful, intravenous administration of c ontrast material, multislice data acquisition was obtained through the abdomen and pelvis. The data s et was subsequently reconstructed into axial images. Images were reviewed on a work station using a c ombination of axial and multiplanar using a variety of window levels and settings. 100 cc of Omnipaqu e 300 contrast was injected intravenously. All CT scans at this medical facility are performed using dose modulation techniques as appropriate t o a performed exam including the following:Automated exposure control was utilized; adjustment of the MA and/or KV according to patient size; and use of iterative reconstruction technique. Radiation Dose Information: CT Dose: CTDI volume is 7 mGy. Dose-length product is 367 mGy*cm Comparison: None FINDINGS: [Findings] The liver demonstrates decreased attenuation compatible with hepatic steatosis. There is a 1.6 cm hypodense right adrenal gland nodule compatible with an adenoma. The left adrenal gland appears within normal limits. There are bilateral renal cysts, the largest in the right lower pole measuring 2.0 cm. There is no ev idence of nephrolithiasis or hydronephrosis. The gallbladder, pancreas, and spleen appear within no rmal limits. There is hazy appearance of the mesenteric root with small shotty mesenteric lymph nodes. There is no retroperitoneal lymphadenopathy. There is no free fluid or free air. The stomach grossly appears unremarkable. The small and large bowel loops demonstrate normal caliber. There are scattered diverticula throughout the colon. There is irregular wall thickening with mild fat stranding in the sigmoid colon compatible with acute diverticulitis. There is no pericolonic flui d collection or free air. The abdominal aorta and IVC appear within normal limits. The bladder appears within normal limits the degree of distention. Pelvic organs is unremarkable. Th ere is no evidence of a pelvic mass or lymphadenopathy. There is no free fluid collection. Lung bases are clear. There is no acute osseous abnormality. IMPRESSION: 1. Findings consistent with acute sigmoid diverticulitis. There is no pericolonic fluid collection or free air. 2. Hazy appearance of the mesenteric root small shotty mesenteric lymph nodes. Differential diagnosi s includes mesenteric panniculitis sclerosing mesenteritis. 3. Fatty infiltration of the liver. 4. 1.6 cm right adrenal gland adenoma.. HS:Y
--- NOTE | 2024-07-25 11:06 | ED.PDOC ---
History of Present Illness HPI Comments 63F with HTN, HLD, DM2 presents with one day of worsening 10/10 lower abdominal pain, nausea, vomiting, and sharp 7/10 nonradiating non exertional left sided chest pain. She has not had this pain in her chest before. She has not taken any meidcations today. She denies dysuria, polyuria, sick contacts, or recent travel. Chief Complaint: Chest Pain Time Seen by MD: 09:12 Primary Care Provider: IVAN Reviewed Notes: Nurses Notes Allergies: Coded Allergies: Clonidine (Verified Allergy, Intermediate, 06/29/19) Morphine (Verified Allergy, Mild, 06/29/19) Patient reports dizziness and tolerates [place] 10/325 well at home. Pregabalin (Verified Allergy, Unknown, 06/29/19) Sulfa Antibiotics (Verified Allergy, Unknown, 10/14/20) Nitroglycerin (Unverified Adverse Reaction, Intermediate, syncope, 10/03/23) Home Meds Reported Medications Senna (Senokot) 8.6 Mg Tab, 2 TAB PO HS, TAB 10/03/23 Dicyclomine Hcl (BENTYL CAPSULE) 10 Mg Cp, 10 MG PO BID, CAP 10/03/23 Benzonatate (Benzonatate) 100 Mg Cap, 100 MG PO PRN, CAP 10/03/23 Lactulose (Constulose) 10 Gm/15 Ml Michelle, 10 GM PO DAILY, ML 10/03/23 Ezetimibe (Zetia) 10 Mg Tab, 10 MG PO DAILY, TAB 05/16/23 Finerenone (Kerendia) 10 Mg Tab, 10 MG PO DAILY, TAB 05/16/23 Dapagliflozin Propanediol (Farxiga) 10 Mg Tab, 10 MG PO DAILY, TAB 05/16/23 Cholecalciferol (D3-50) 50,000 Unit Cap, 68390 UNIT PO Q14D, CAP 05/16/23 Fenofibrate (FENOFIBRATE) 145 Mg Tab, 145 MG OR DAILY, TAB 05/16/23 Albuterol Sulfate (Albuterol Sulfate) 0.083 % Neb, 0.083 % IN QID, INH 10/14/20 Hydrocodone-Acetaminophen ([place] 10-325 mg) 1 Tab Tab, 1 TAB PO QID, TAB 02/25/20 Clopidogrel Bisulfate (Plavix) 75 Mg Tab, 1 TAB PO DAILY, #90 TAB 1 Refill 06/29/19 Aspirin (Aspir-Low) 81 Mg Tab, 81 MG PO DAILY for 30 Days, MG 06/29/19 Insulin Glargine (Lantus) 100 Unit/Ml Inj, 40 UNIT SC QAM, INJ 06/29/19 Nifedipine (Nifedipine Er) 90 Mg Tab, 1 TAB PO DAILY, #30 TAB 5 Refills 06/29/19 Information Source: Patient Mode of Arrival: Ambulatory Past Medical History PAST MEDICAL HISTORY: Arthritis, Asthma, DM, High Lipids, HTN Surgical History: BTL, , PTCA 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 PRESS 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 History: No Pertinent 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 PRESS HELPER History Family History Family History: Family hx of HTN Social History Smoker: Non-Smoker Alcohol: Denies ETOH Use Drugs: Denies Drug Use Lives In: Home All Other Systems: Reviewed and Negative Physical Exam General Appearance: Normal HEENT: Normal ENT Inspection Neck: Normal Inspection Respiratory: No Respiratory Distress Cardiovascular: No Edema Breast Exam: Deferred Gastrointestinal: LLQ, Tenderness Genitalia: Deferred Pelvic: Deferred Rectal: Deferred Extremities: Normal range of motion Neurologic: No Motor Deficits Cerebellar Function: NOT DONE Reflexes: NOT DONE Skin: Normal Color Lymphatic: NOT DONE Was a procedure done? Was a procedure done?: No Differential Dx Considerations may include: ACS, viral syndrome, electrolyte abnormality, diverticulitis, appendicitis, biliary colic, urinary tract infection, pyelonephritis X-Ray, Labs, Meds, VS Vital Signs Date Time Temp Pulse Resp B/P (MAP) Pulse Ox O2 Delivery O2 Flow Rate FiO2 07/25/24 10:41 91 07/25/24 10:07 89 18 97 Room Air* 0 21 07/25/24 09:10 106 07/25/24 09:10 98.2 110 18 101/70 (80) 99 Lab Test 07/25/24 10:46 07/25/24 09:16 Range/Units Troponin I High Sensitivity Pending 6 </=34 ng/L White Blood Count 9.8 4.4-10.8 10^3/uL Red Blood Count 4.10 4.0-5.20 10^6/uL Hemoglobin 12.8 12.2-16.2 g/dL Hematocrit 37.2 36.0-46.0 % Mean Corpuscular Volume 90.7 80.0-100.0 fL Mean Corpuscular Hemoglobin 31.3 28.0-32.0 pg Mean Corpuscular Hemoglobin Concent 34.5 32.0-36.0 g/dL Red Cell Distribution Width 12.5 11.8-14.3 % Platelet Count 566 H 140-450 10^3/uL Mean Platelet Volume 7.4 6.9-10.8 fL Neutrophils (%) (Auto) 63.0 37.0-80.0 % Lymphocytes (%) (Auto) 24.6 10.0-50.0 % Monocytes (%) (Auto) 8.9 0.0-12.0 % Eosinophils (%) (Auto) 2.8 0.0-7.0 % Basophils (%) (Auto) 0.7 0.0-2.0 % Neutrophils # (Auto) 6.2 1.6-8.6 10 ^3/uL Lymphocytes # (Auto) 2.4 0.4-5.4 10 ^3/uL Monocytes # (Auto) 0.9 0-1.3 10 ^3/uL Eosinophils # (Auto) 0.3 0-0.8 10 ^3/uL Basophils # (Auto) 0.1 0-0.2 10 ^3/uL Nucleated Red Blood Cells 0.0 % Sodium Level 140 136-145 mmol/L Potassium Level 3.9 3.5-5.1 mmol/L Chloride Level 104 98-107 mmol/L Carbon Dioxide Level 25 20-31 mmol/L Anion Gap 11 5-15 Blood Urea Nitrogen 20 9-23 mg/dL Creatinine 1.43 H 0.550-1.02 mg/dL Glomerular Filtration Rate Calc 41 >90 mL/min BUN/Creatinine Ratio 14.0 10.0-20.0 Serum Glucose 216 H 74-106 mg/dL Calcium Level 10.7 H 8.7-10.4 mg/dL Current Medications Medications (Trade) Dose Ordered Sig/Meryl Route Start Time Stop Time Status Last Admin Sodium Chloride 1,000 ml @ 1,000 mls/hr Q1H ONCE IV 07/25/24 09:15 07/25/24 10:14 DC 07/25/24 10:03 Ondansetron HCl (Zofran) 4 mg ONCE ONCE IV 07/25/24 09:15 07/25/24 09:16 DC 07/25/24 10:05 Ketorolac Tromethamine (Toradol Injection) 15 mg ONCE ONCE IV 07/25/24 09:15 07/25/24 09:16 DC 07/25/24 10:05 Acetaminophen (Tylenol Tablet) 650 mg ONCE ONCE PO 07/25/24 09:15 07/25/24 09:16 DC 07/25/24 10:07 Famotidine (Pepcid Injection) 20 mg ONCE ONCE IV 07/25/24 09:15 07/25/24 09:16 DC 07/25/24 10:05 Time of 1ST Reevaluation: 11:05 Reevaluation 1ST: Improved Patient Education/Counseling: Diagnosis, Treatment Family Education/Counseling: No Family Present Departure 1 Departure Time of Disposition: 11:05 (Patient presented with abdominal pain that was concerning for possible appendicits, gastritis, cholecystitis, colitis, gastroenteritis, sbo, or orther possible surgical emergency. Data: 1. I ordered and reviewed the result of at least 3 labs including a CBC, BMP, and Urinalysis. 2. I independently interpreted the following tests: CT Abdoment and Pelvis is concerning for acute diverticulitis .Risk:This patient has a high risk of morbidity due to further diagnostic testing or treatment and may suffer from an acute abdominal process disorder. Workup reveals acute diverticulitis and patient should be admitted for further workup. and possible expert consultation. ) Impression: Primary Impression: Acute diverticulitis Additional Impression: Acute chest pain Disposition: ADMITTED INPATIENT Admit to: Med Surg Condition: Serious Critical Care Note Critical Care Time?: Yes Critical care comment: Acute chest pain Authorized and Performed by: Rex Leon MD Total critical care time: Approximately 42 minutes Due to a high probability of clinically significant, life threatening deterioration, the patient required my highest level of preparedness to intervene emergently and I personally spent this critical care time directly and personally managing the patient. This critical care time included obtaining a history; examining the patient; pulse oximetry; ordering and review of studies; arranging urgent treatment with development of a management plan; evaluation of patient's response to treatment; frequent reassessment; and, discussions with other providers. This critical care time was performed to assess and manage the high probability of imminent, life-threatening deterioration that could result in multi-organ failure. It was exclusive of separately billable procedures and treating other patients and teaching time. Please see my other sections and the rest of the note for further information on patient assessment and treatment. Stability Stability form required: No Heart Score Heart Score: Heart Score Response (Comments) Value History Moderate Suspicious 1 EKG Repolarization Disturb 1 Age 45-64 1 Risk Factors 1 or 2 risk factors 1 Troponin Normal limit 0 Total 4 REX LEON MD Jul 25, 2024 11:06
[2024-07-25] MEDS: ceFAZolin 2 GM/D5W50ml 50 ML IV ONE (12:10)
[2024-07-25] MEDS: metroNIDAZOLE 500MG/100ML 100 ML IV ONE (12:53)
[2024-07-25] MEDS ORDERED: MORPHINE SULFATE INJ 2 MG/ml SYRG IV PRN ×2 (13:15)
[2024-07-25] MEDS ORDERED: DOCUSATE SOD 100 MG CAP PO PRN (13:15)
[2024-07-25] MEDS ORDERED: NITROGLYCERIN 0.4 MG SL TAB SL PRN (13:15)
[2024-07-25] MEDS ORDERED: ATOR20TA50 PO (13:18)
[2024-07-25] MEDS ORDERED: DEXTROSE (50%) 50ML SYRG IV PRN (13:30)
--- NOTE | 2024-07-25 13:31 | DVHHP2 ---
History of Present Illness Reason for Visit: Abdominal pain, and chest pain History of Present Illness Merlyn Winter is a 63-year-old female with past medical history of hypertension, hyperlipidemia, sleep apnea uses a CPAP, diverticulosis, diabetes, asthma, and arthritis, who came into the hospital due to abdominal pain and c hest pain. Patient states the abdominal pain started about 1 week ago with associated nausea and vomiting that continued to worsen. She states the chest pain started 2 days ago and it is intermittent. Patient states that she does follow with Dr. Jared Gale for her diverticulosis. Cardiovascular: HTN, hyperipidemia Pulmonary: Asthma, Other (sleep apnea, uses a CPAP) GI: Diverticulosis Endocrine: Diabetes Past Surgical History: (x 1), Other (Carotid stent, and colon repair surgery), Tubal Ligation Family History: None Smoke: No ALCOHOL: none Drugs: None Lives: with Family Domestic Violence: Neg Review of Systems Constitutional: No: Fever, Chills, Sweats, Weakness, Malaise, Other Eyes: No: Pain, Vision change, Conjunctivae inflammation, Eyelid inflammation, Other, Redness ENT: No: Ear pain, Ear discharge, Nose pain, Nose discharge, Nose congestion, Mouth pain, Mouth swelling, Throat pain, Throat swelling, Other Respiratory: No: Cough, Dry, Shortness of breath, SOB with excertion, Wheezing, Hemoptysis, Pleuritic Pain, Sputum, Wheezing, Other Cardiovascular: Chest Pain; No: Palpitations, Orthopnea, Paroxysmal Noc. Dyspnea, Edema, Lt Headedness, Other Gastrointestinal: Nausea, Vomiting, Abdominal Pain; No: Diarrhea, Constipation, Melena, Hematochezia, Other Genitourinary: No Dysuria, No Frequency, No Incontinence, No Hematuria, No Retention, No Other Musculoskeletal: No: other, neck pain, shoulder pain, arm pain, back pain, hand pain, leg pain, foot pain Skin: No: Rash, Lesions, Jaundice, Bruising, Other Neurological: No: Weakness, Numbness, Incoordination, Change in speech, Confusion, Seizures, Other Allergies: Coded Allergies: Clonidine (Verified Allergy, Intermediate, 06/29/19) Morphine (Verified Allergy, Mild, 06/29/19) Patient reports dizziness and tolerates [place] 10/325 well at home. Pregabalin (Verified Allergy, Unknown, 06/29/19) Sulfa Antibiotics (Verified Allergy, Unknown, 10/14/20) Nitroglycerin (Unverified Adverse Reaction, Intermediate, syncope, 10/03/23) Medications Current Medications Medications Dose Ordered Sig/Meryl Route Start Time Stop Time Status Last Admin Dose Admin Metronidazole 100 ml @ 100 mls/hr Q8HR IV 07/25/24 14:00 UNV Ceftriaxone Sodium 50 ml @ 100 mls/hr DAILY@09 IV 07/26/24 09:00 UNV Sodium Chloride 1,000 ml @ 100 mls/hr Q10H IV 07/25/24 13:15 UNV Acetaminophen/ Hydrocodone Bitart 1 tab Q4HP PRN PO 07/25/24 13:15 UNV Ondansetron HCl 4 mg Q4HP PRN IV 07/25/24 13:15 UNV Docusate Sodium 100 mg BIDPRN PRN PO 07/25/24 13:15 UNV Acetaminophen 650 mg Q6HP PRN PO 07/25/24 13:15 UNV Morphine Sulfate 2 mg Q4HPRN PRN IV 07/25/24 13:15 UNV Nitroglycerin 0.4 mg Q5MINP PRN SL 07/25/24 13:15 UNV Morphine Sulfate 2 mg Q30M PRN IV 07/25/24 13:15 UNV Aspirin 81 mg DAILY PO 07/26/24 10:00 UNV Clopidogrel Bisulfate 75 mg DAILY PO 07/26/24 10:00 UNV Dicyclomine HCl 10 mg BID PO 07/25/24 22:00 UNV Insulin Glargine 40 units QAM SC 07/26/24 07:00 UNV Patient Own Medication 10 mg DAILY PO 07/26/24 10:00 UNV Patient Own Medication 145 mg DAILY OR 07/26/24 10:00 UNV Patient Own Medication 10 mg DAILY PO 07/26/24 10:00 UNV Patient Own Medication 1 tab DAILY PO 07/26/24 10:00 UNV Exam Vital Signs Vital Signs Date Time Temp Pulse Resp B/P (MAP) Pulse Ox O2 Delivery O2 Flow Rate FiO2 07/25/24 13:18 98.2 80 12 133/75 (94) 100 98.2 07/25/24 10:07 Room Air* 0 21 General Appearance: Alert, Oriented X3, Cooperative, moderate distress HEENT: Atraumatic, PERRLA Respiratory: Clear to auscultation, Normal air movement Cardiovascular: Regular rate, Normal S1, Normal S2 Abdominal: Normal bowel sounds, Soft, Other (C/O pain ) Extremities: No clubbing, No cyanosis, No edema, Normal pulses Skin: No rashes, No breakdown, No significant lesion Neuro: Normal gait, Normal speech, Strength at 5/5 X4 ext Psych/Mental Status: Mental status NL, Mood NL Labs/Xrays Labs Test 07/25/24 12:15 07/25/24 09:16 Range/Units Lactic Acid Level 1.4 0.4-2.0 mmol/L Troponin I High Sensitivity 5 </=34 ng/L White Blood Count 9.8 4.4-10.8 10^3/uL Red Blood Count 4.10 4.0-5.20 10^6/uL Hemoglobin 12.8 12.2-16.2 g/dL Hematocrit 37.2 36.0-46.0 % Mean Corpuscular Volume 90.7 80.0-100.0 fL Mean Corpuscular Hemoglobin 31.3 28.0-32.0 pg Mean Corpuscular Hemoglobin Concent 34.5 32.0-36.0 g/dL Red Cell Distribution Width 12.5 11.8-14.3 % Platelet Count 566 H 140-450 10^3/uL Mean Platelet Volume 7.4 6.9-10.8 fL Neutrophils (%) (Auto) 63.0 37.0-80.0 % Lymphocytes (%) (Auto) 24.6 10.0-50.0 % Monocytes (%) (Auto) 8.9 0.0-12.0 % Eosinophils (%) (Auto) 2.8 0.0-7.0 % Basophils (%) (Auto) 0.7 0.0-2.0 % Neutrophils # (Auto) 6.2 1.6-8.6 10 ^3/uL Lymphocytes # (Auto) 2.4 0.4-5.4 10 ^3/uL Monocytes # (Auto) 0.9 0-1.3 10 ^3/uL Eosinophils # (Auto) 0.3 0-0.8 10 ^3/uL Basophils # (Auto) 0.1 0-0.2 10 ^3/uL Nucleated Red Blood Cells 0.0 % Sodium Level 140 136-145 mmol/L Potassium Level 3.9 3.5-5.1 mmol/L Chloride Level 104 98-107 mmol/L Carbon Dioxide Level 25 20-31 mmol/L Anion Gap 11 5-15 Blood Urea Nitrogen 20 9-23 mg/dL Creatinine 1.43 H 0.550-1.02 mg/dL Glomerular Filtration Rate Calc 41 >90 mL/min BUN/Creatinine Ratio 14.0 10.0-20.0 Serum Glucose 216 H 74-106 mg/dL Calcium Level 10.7 H 8.7-10.4 mg/dL Exam: CT CT AB PEL WITH IV CON ONLY FINDINGS: [Findings] The liver demonstrates decreased attenuation compatible with hepatic steatosis. There is a 1.6 cm hypodense right adrenal gland nodule compatible with an adenoma. The left adrenal gland appears within normal limits. There are bilateral renal cysts, the largest in the right lower pole measuring 2.0 cm. There is no evidence of nephrolithiasis or hydronephrosis. The gallbladder, pancreas, and spleen appear within normal limits. There is hazy appearance of the mesenteric root with small shotty mesenteric lymph nodes. There is no retroperitoneal lymphadenopathy. There is no free fluid or free air. The stomach grossly appears unremarkable. The small and large bowel loops demonstrate normal caliber. There are scattered diverticula throughout the colon. There is irregular wall thickening with mild fat stranding in the sigmoid colon compatible with acute diverticulitis. There is no pericolonic fluid collection or free air. The abdominal aorta and IVC appear within normal limits. The bladder appears within normal limits the degree of distention. Pelvic organs is unremarkable. There is no evidence of a pelvic mass or lymphadenopathy. There is no free fluid collection. Lung bases are clear. There is no acute osseous abnormality. IMPRESSION: 1. Findings consistent with acute sigmoid diverticulitis. There is no pericolonic fluid collection or free air. 2. Hazy appearance of the mesenteric root small shotty mesenteric lymph nodes. Differential diagnosis includes mesenteric panniculitis sclerosing mesenteritis. 3. Fatty infiltration of the liver. 4. 1.6 cm right adrenal gland adenoma.. EXAM: XY CHEST TWO VIEWS ROUTINE FINDINGS: Lines and Tubes: None Lungs: No focal consolidation. Pleura: No effusion. No pneumothorax. Cardiomediastinal contours: Unremarkable Pulmonary vasculature: Within normal limits. Bones: No acute osseous abnormality. IMPRESSION: 1. No acute cardiopulmonary disease. Assessment/Plan Assessment/Plan Assessment: Acute diverticulitis, Acute chest pain, Hyperglycemia, Hypertension, Hyperlipidemia, Diabetes, Plan: Admit to Tele, GI consult, Cardiology consult, NPO except medications, IV antibiotics, Blood cultures, Urine culture, A1c, Accu checks Q AC&HS with sliding scale, Home medications reconciled, Plan discussed with: Patient My Orders Orders - BELKIS CURRIE CHOIRMASTER Procedure Category Date Status Time Metronidazole PHA 07/25/24 Logged 500mg/100ml (Flagyl 14:00 Ceftriaxone 1gm/50ml PHA 07/26/24 Logged D5w (Rocephin) 09:00 Admit ADMIT 07/25/24 Transmitted 13:04 Code Status CODE 07/25/24 Transmitted 13:04 Sodium Chloride 0.9% PHA 07/25/24 Logged 13:15 Hydrocodone-Acet PHA 07/25/24 Logged 5/325mg Tab ([place] 13:15 Ondansetron Hcl PHA 07/25/24 Logged (Zofran) 13:15 Docusate Sodium PHA 07/25/24 Logged Capsule (Colace 13:15 Complete Blood Count LAB 07/26/24 Verified 04:00 Comprehensive LAB 07/26/24 Verified Metabolic Panel 04:00 Npo (Nothing By DIET 07/25/24 Transmitted Mouth) Diet Lunch Condition: Serious LETY 07/25/24 In Process 13:04 Acetaminophen Tablet PHA 07/25/24 Logged (Tylenol Tablet) 13:15 Morphine Sulfate PHA 07/25/24 Logged Injection 13:15 Nitroglycerin PHA 07/25/24 Logged Sublingual (Ntrostat 13:15 Morphine Sulfate PHA 07/25/24 Logged Injection 13:15 Stat Ekg For Chest LETY 07/25/24 In Process Pain 13:04 Notify Md Of Changes LETY 07/25/24 In Process From Base 13:04 Gas Torch Solderer For LETY 07/25/24 In Process 24 Hours 13:04 Emergency Dysrhythmia LETY 07/25/24 In Process Protocol 13:04 Rhythm Strips Once LETY 07/25/24 In Process Every Shift 13:04 Oxygen By Nasal RT 07/25/24 Transmitted Cannula 13:04 * Cardiology Consult CONS 07/25/24 Transmitted 13:04 * [facility] Clerk CONS 07/25/24 Transmitted 13:13 Aspirin Enteric PHA 07/26/24 Logged Coated Tablet 10:00 Clopidogrel Bisulfate PHA 07/26/24 Logged (Plavix) 10:00 Dicyclomine Capsule PHA 07/25/24 Logged (Bentyl Capsule) 22:00 Insulin Lantus PHA 07/26/24 Logged (Glargine) (Lantus) 07:00 (Nf) Dapagliflozin PHA 07/26/24 Logged Propanediol (Farxiga) 10:00 (Nf) Fenofibrate PHA 07/26/24 Logged 10:00 (Nf) Finerenone PHA 07/26/24 Logged (Kerendia) 10:00 (Nf) Nifedipine PHA 07/26/24 Logged (Nifedipine Er) 10:00 Date of Service: Jul 25, 2024 Billing Provider: BELKIS CURRIE Common Visit Codes: [id number] INP/OBS CARE (MOD) BELKIS CURRIE Jul 25, 2024 13:31
--- NOTE | 2024-07-25 15:36 | ECG ---
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
[2024-07-25] MEDS: InsuLIN REG 1unit/0.01ml Soln (100units/ml) SC SCH ×2 (18:05→22:50)
[2024-07-25] MEDS: ACCU-CHEK COMFORT CURVE STRIP VI SCH (18:05)
[2024-07-25] MEDS: metroNIDAZOLE 500MG/100ML 100 ML IV SCH (18:11)
--- NOTE | 2024-07-25 19:03 | ECG ---
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
[2024-07-25] MEDS: SODIUM CHLORIDE 0.9% 1,000 ML IV SCH (19:46)
[2024-07-25] MEDS: HYDROcodone-ACET 5/325MG TAB PO PRN (21:59)
[2024-07-25] MEDS: DICYCLOMINE HCL 10 MG CAP PO SCH (21:59)
[2024-07-25] MEDS: LOSARTAN POTASSIUM 50 MG TAB PO ONE (23:19)
[2024-07-25] MEDS: NIFEdipine ER 30 MG TAB PO ONE (23:20)
[2024-07-25 23:24] VITALS: PULSE 85; RESP 18; O2SAT 98
[2024-07-26] VITALS (10 sets, daily range): BP systolic 128–154; BP diastolic 64–88; PULSE 69–93; RESP 17–20; TEMP 97.6–98.3; O2SAT 94–99
[2024-07-26] MEDS: INSULIN LANTUS (GLARGINE) 1 /0.01ml (100units/ml) SC SCH (06:12)
[2024-07-26 07:23] LABS: Basophils # (auto) 0 10 ^3/uL (0-0.2); Monocytes # (auto) 0.5 10 ^3/uL (0-1.3); Nucleated Red Blood Cells % 0.1 %; Platelet Count (auto) 484 10^3/uL (140-450); Red Cell Distribution Width 12.7 % (11.8-14.3)
[2024-07-26 07:28] LABS: Basophils % (auto) 0.4 % (0.0-2.0); Eosinophils # (auto) 0.3 10 ^3/uL (0-0.8); Eosinophils % (auto) 5.5 % (0.0-7.0); Hematocrit 33.1 % (36.0-46.0); Hemoglobin 11.6 g/dL (12.2-16.2); Lymphocytes # (auto) 1.7 10 ^3/uL (0.4-5.4); Lymphocytes % (auto) 33.6 % (10.0-50.0); Mean Corpuscular Hemoglobin 31.7 pg (28.0-32.0); Mean Corpuscular Hgb Conc. 35.2 g/dL (32.0-36.0); Mean Corpuscular Volume 90.1 fL (80.0-100.0); Monocytes % (auto) 10.1 % (0.0-12.0); Neutrophils # (auto) 2.5 10 ^3/uL (1.6-8.6); Neutrophils % (auto) 50.4 % (37.0-80.0); Red Blood Cells 3.67 10^6/uL (4.0-5.20)
[2024-07-26 07:35] LABS: Alkaline Phosphatase 100 U/L (46-116); Anion Gap 10 (5-15); BUN/Creatinine Ratio 10.3 (10.0-20.0); Blood Urea Nitrogen 12 mg/dL (9-23); Calcium 10.2 mg/dL (8.7-10.4); Carbon Dioxide 24 mmol/L (20-31); Chloride 105 mmol/L (98-107); Potassium 3.6 mmol/L (3.5-5.1); Sodium 139 mmol/L (136-145)
[2024-07-26 07:36] LABS: Albumin 4.3 g/dL (3.2-4.8); Aspartate Aminotransferase 28 U/L (13-40); Bilirubin, Total 0.5 mg/dL (0.2-1.0); Total Protein 7.2 g/dL (5.7-8.2)
[2024-07-26 07:40] LABS: Alanine Aminotransferase 41 U/L (7-40); Glucose 120 mg/dL (74-106)
[2024-07-26] MEDS: cefTRIAXone 1GM/50ML D5W 50 ML IV SCH (09:58)
[2024-07-26] MEDS: Fenofibrate 145 MG PO SCH (09:58)
[2024-07-26] MEDS: Dapagliflozin Propanediol (Farxiga) 10 MG PO SCH (09:58)
[2024-07-26] MEDS: CLOPIDOGREL BISULFATE 75 MG TAB PO SCH (09:59)
[2024-07-26] MEDS: ASPirin-EC 81 mg tab PO SCH (09:59)
[2024-07-26] MEDS: ATORVASTATIN 20 MG TAB PO SCH (10:00)
[2024-07-26] MEDS ORDERED: PATIENTS OWN MEDICATION (Nifedipine (Nifedipine Er) 1 TAB) PO SCH (10:00)
[2024-07-26] MEDS: ACETAMINOPHEN 325 MG TAB PO PRN (10:00)
[2024-07-26] MEDS: NIFEdipine ER 30 MG TAB PO SCH (10:02)
--- NOTE | 2024-07-26 10:27 | DVHPN2 ---
Progress Note Date Seen: Jul 26, 2024 Medical Necessity Reason Pt with a Central, PICC or Fol: No Subjective Patient reports: No new complaints Review of Systems: HEENT:Normal, CVS:Normal, RESPIRATORY:Normal, GI:Normal, :Normal, MSK:Normal, NEURO:Normal Objective vital signs Vital Sign Date Time Temp Pulse Resp B/P (MAP) Pulse Ox O2 Delivery O2 Flow Rate FiO2 07/26/24 10:02 140/80 07/26/24 09:00 97.9 78 20 96 97.9 07/25/24 23:24 Room Air* 0 21 Total Intake and Output 07/25/24 07/25/24 07/26/24 15:00 23:00 07:00 Intake Total 2000 ml 100 ml 100 ml Balance 2000 ml 100 ml 100 ml medications Current Medications Medications Dose Ordered Sig/Meryl Route Start Time Stop Time Status Last Admin Dose Admin Metronidazole 100 ml @ 100 mls/hr Q8HR IV 07/25/24 14:00 07/26/24 06:00 100 MLS/HR Ceftriaxone Sodium 50 ml @ 100 mls/hr DAILY@09 IV 07/26/24 09:00 07/26/24 09:58 100 MLS/HR Sodium Chloride 1,000 ml @ 100 mls/hr Q10H IV 07/25/24 13:15 07/26/24 09:58 100 MLS/HR Acetaminophen/ Hydrocodone Bitart 1 tab Q4HP PRN PO 07/25/24 13:15 07/25/24 21:59 1 TAB Ondansetron HCl 4 mg Q4HP PRN IV 07/25/24 13:15 Docusate Sodium 100 mg BIDPRN PRN PO 07/25/24 13:15 Acetaminophen 650 mg Q6HP PRN PO 07/25/24 13:15 07/26/24 10:00 650 MG Morphine Sulfate 2 mg Q4HPRN PRN IV 07/25/24 13:15 Cancel Nitroglycerin 0.4 mg Q5MINP PRN SL 07/25/24 13:15 Morphine Sulfate 2 mg Q30M PRN IV 07/25/24 13:15 Cancel Aspirin 81 mg DAILY PO 07/26/24 10:00 07/26/24 09:59 81 MG Clopidogrel Bisulfate 75 mg DAILY PO 07/26/24 10:00 07/26/24 09:59 75 MG Dicyclomine HCl 10 mg BID PO 07/25/24 22:00 07/26/24 09:59 10 MG Patient Own Medication 10 mg DAILY PO 07/26/24 10:00 Patient Own Medication 1 tab DAILY PO 07/26/24 10:00 UNV Atorvastatin Calcium 20 mg DAILY PO 07/26/24 10:00 Diagnostic Test (Pha) 1 strip ACHS 07/25/24 17:00 07/26/24 06:03 1 STRIP Insulin Human Regular HS SC 07/25/24 22:00 Dextrose 50 ml UD PRN IV 07/25/24 13:30 Nifedipine 90 mg DAILY PO 07/26/24 10:00 07/26/24 10:02 90 MG Diagnostic Test (Pha) 1 strip ACHS 07/26/24 11:30 UNV Insulin Human Regular ACHS SC 07/26/24 11:30 UNV Dextrose 50 ml UD PRN IV 07/26/24 10:30 UNV Examination: GENERAL:Normal, HEENT:Normal, NECK:Normal, LUNGS:Normal, CVS:Normal, ABDOMEN:Normal, ABDOMEN:Abnormal (left abd tenderness), MSK:Normal, SKIN:Normal, NEURO:Normal, :Normal laboratory and microbiology Laboratory Tests 07/26/24 06:40 Test 07/26/24 06:40 Range/Units Serum Glucose 120 H 74-106 mg/dL Problem List/Assessment/Plan Problem List/Assessment/Plan #1 acute diverticulitis: iv antibiotics #2 dm: ssi #3 htn #4 acute renal failure ?vasomotor nephropathy: ivf #5 h/o sigmoid stricture #6 arthritis #7 hyperlipidemia advance care planning- full code-time spent 19 mins Plan discussed with: Patient My Orders My Orders Orders - JO ANN JOYCE MD Procedure Category Date Status Time Discontinue Tele LETY 07/26/24 In Process 10:19 Transfer Orders XFER 07/26/24 Transmitted 10:19 Clear Liq Diet DIET 07/26/24 Transmitted Lunch Glucose Blood PHA 07/26/24 Logged (Accu-Chek Comfort 11:30 Insulin R (Human) PHA 07/26/24 Logged (Insulin R) 11:30 Dextrose 50% Syringe PHA 07/26/24 Logged 10:30 Urinalysis LAB 07/26/24 Uncollected 10:19 Basic Metabolic Panel LAB 07/27/24 Verified 06:00 Complete Blood Count LAB 07/27/24 Verified 06:00 Date of Service: Jul 26, 2024 Billing Provider: JO ANN JOYCE MD Common Visit Codes: [id number] INP/OBS CARE(HIGH) Secondary Visit Codes: [id number] CARE PLAN 30 MINUTES JO ANN JOYCE MD Jul 26, 2024 10:27
[2024-07-26] MEDS ORDERED: DEXTROSE (50%) 50ML SYRG IV PRN (10:30)
--- NOTE | 2024-07-26 11:28 | DVHINCON2 ---
Date of service: Jul 26, 2024 History of Present Illness Merlyn Winter is a 63-year-old female with past medical history of hypertension, hyperlipidemia, sleep apnea uses a CPAP, diverticulosis, diabetes, asthma, and arthritis, who came into the hospital due to abdominal pain and chest pain. Patient states the abdominal pain started about 1 week ago with associated nausea and vomiting that continued to worsen. She states the chest pain started 2 days ago and it is intermittent. Patient states that she does follow with Dr. Jared Gale for her diverticulosis. Cardiovascular: HTN, hyperipidemia Pulmonary: Asthma, Other (sleep apnea, uses a CPAP) GI: Diverticulosis Endocrine: Diabetes Past Surgical History: (x 1), Other (Carotid stent, and colon repair surgery), Tubal Ligation Family History: None Smoke: No ALCOHOL: none Drugs: None Lives: with Family Domestic Violence: Neg Past Medical History reviewed Family History: Cardiovascular disease G8 FATHER Diabetes mellitus G8 MOTHER G8 FATHER Hypertension G8 MOTHER Allergies: Coded Allergies: Clonidine (Verified Allergy, Intermediate, 06/29/19) Morphine (Verified Allergy, Mild, 06/29/19) Patient reports dizziness and tolerates [place] 10/325 well at home. Pregabalin (Verified Allergy, Unknown, 06/29/19) Sulfa Antibiotics (Verified Allergy, Unknown, 10/14/20) Nitroglycerin (Unverified Adverse Reaction, Intermediate, syncope, 10/03/23) Home Meds Reported Medications Atorvastatin Calcium (ATORVASTATIN CALCIUM) 20 Mg Tab, 1 TAB PO DAILY 07/25/24 Senna (Senokot) 8.6 Mg Tab, 2 TAB PO HS, TAB 10/03/23 Dicyclomine Hcl (BENTYL CAPSULE) 10 Mg Cp, 10 MG PO BID, CAP 10/03/23 Benzonatate (Benzonatate) 100 Mg Cap, 100 MG PO PRN, CAP 10/03/23 Lactulose (Constulose) 10 Gm/15 Ml Michelle, 10 GM PO DAILY, ML 10/03/23 Ezetimibe (Zetia) 10 Mg Tab, 10 MG PO DAILY, TAB 05/16/23 Finerenone (Kerendia) 10 Mg Tab, 10 MG PO DAILY, TAB 05/16/23 Dapagliflozin Propanediol (Farxiga) 10 Mg Tab, 10 MG PO DAILY, TAB 05/16/23 Cholecalciferol (D3-50) 50,000 Unit Cap, 87221 UNIT PO Q14D, CAP 05/16/23 Fenofibrate (FENOFIBRATE) 145 Mg Tab, 145 MG OR DAILY, TAB 05/16/23 Albuterol Sulfate (Albuterol Sulfate) 0.083 % Neb, 0.083 % IN QID, INH 10/14/20 Hydrocodone-Acetaminophen ([place] 10-325 mg) 1 Tab Tab, 1 TAB PO QID, TAB 02/25/20 Clopidogrel Bisulfate (Plavix) 75 Mg Tab, 1 TAB PO DAILY, #90 TAB 1 Refill 06/29/19 Aspirin (Aspir-Low) 81 Mg Tab, 81 MG PO DAILY for 30 Days, MG 06/29/19 Insulin Glargine (Lantus) 100 Unit/Ml Inj, 40 UNIT SC QAM, INJ 06/29/19 Nifedipine (Nifedipine Er) 90 Mg Tab, 1 TAB PO DAILY, #30 TAB 5 Refills 06/29/19 Current Medications Current Medications Medications (Trade) Dose Ordered Sig/Meryl Route PRN Reason Start Time Stop Time Status Last Admin Metronidazole 100 ml @ 100 mls/hr Q8HR IV 07/25/24 14:00 07/26/24 06:00 Ceftriaxone Sodium 50 ml @ 100 mls/hr DAILY@09 IV 07/26/24 09:00 07/26/24 09:58 Sodium Chloride 1,000 ml @ 100 mls/hr Q10H IV 07/25/24 13:15 07/26/24 09:58 Acetaminophen/ Hydrocodone Bitart ([place] 5/325MG Tab) 1 tab Q4HP PRN PO MODERATE PAIN (4-6 PAIN SCALE) 07/25/24 13:15 07/25/24 21:59 Ondansetron HCl (Zofran) 4 mg Q4HP PRN IV NAUSEA / VOMITING 07/25/24 13:15 Docusate Sodium (Colace Capsule) 100 mg BIDPRN PRN PO FOR CONSTIPATION 07/25/24 13:15 Acetaminophen (Tylenol Tablet) 650 mg Q6HP PRN PO PAIN SCALE 1-3 OR TEMP>100.4 07/25/24 13:15 07/26/24 10:00 Morphine Sulfate 2 mg Q4HPRN PRN IV SEVERE PAIN (7-10 PAIN SCALE) 07/25/24 13:15 Cancel Nitroglycerin (Ntrostat Sublingual) 0.4 mg Q5MINP PRN SL FOR CHEST PAIN 07/25/24 13:15 Morphine Sulfate 2 mg Q30M PRN IV FOR CHEST PAIN 07/25/24 13:15 Cancel Aspirin (Ecotrin Enteric Coated Tablet) 81 mg DAILY PO 07/26/24 10:00 07/26/24 09:59 Clopidogrel Bisulfate (Plavix) 75 mg DAILY PO 07/26/24 10:00 07/26/24 09:59 Dicyclomine HCl (Bentyl Capsule) 10 mg BID PO 07/25/24 22:00 07/26/24 09:59 Insulin Glargine (Lantus) 40 units QAM SC 07/26/24 07:00 07/26/24 10:22 DC Patient Own Medication 10 mg DAILY PO 07/26/24 10:00 07/26/24 10:22 DC Patient Own Medication 145 mg DAILY PO 07/26/24 10:00 07/26/24 10:22 DC Patient Own Medication 10 mg DAILY PO 07/26/24 10:00 Patient Own Medication 1 tab DAILY PO 07/26/24 10:00 UNV Atorvastatin Calcium (Lipitor) 20 mg DAILY PO 07/26/24 10:00 Diagnostic Test (Pha) (Accu-Chek Comfort Curve T) 1 strip ACHS 07/25/24 17:00 07/26/24 10:41 DC 07/26/24 06:03 Insulin Human Regular (InsuLIN R) HS SC 07/25/24 22:00 07/26/24 10:41 DC Insulin Human Regular (InsuLIN R) AC SC 07/25/24 17:00 07/26/24 10:22 DC Dextrose 50 ml UD PRN IV Blood Sugar LESS THAN 60 07/25/24 13:30 Cancel Nifedipine (Procardia Xl (Time-Release)) 90 mg DAILY PO 07/26/24 10:00 07/26/24 10:02 Diagnostic Test (Pha) (Accu-Chek Comfort Curve T) 1 strip ACHS 07/26/24 11:30 Insulin Human Regular (InsuLIN R) ACHS SC 07/26/24 11:30 Dextrose 50 ml UD PRN IV Blood Sugar LESS THAN 60 07/26/24 10:30 Review of Systems 10 pt ros otherwise negative Vital Signs Vital Signs Date Time Temp Pulse Resp B/P (MAP) Pulse Ox O2 Delivery O2 Flow Rate FiO2 07/26/24 10:02 140/80 07/26/24 09:00 97.9 78 20 96 97.9 07/25/24 23:24 Room Air* 0 21 Physical Exam nad s1 s2 rrr ctab soft nt/nd no edema Labs/Diagnostic Data Labs Test 07/26/24 06:40 07/26/24 05:52 07/25/24 12:15 Range/Units White Blood Count 5.0 # 4.4-10.8 10^3/uL Red Blood Count 3.67 L 4.0-5.20 10^6/uL Hemoglobin 11.6 L 12.2-16.2 g/dL Hematocrit 33.1 #L 36.0-46.0 % Mean Corpuscular Volume 90.1 80.0-100.0 fL Mean Corpuscular Hemoglobin 31.7 28.0-32.0 pg Mean Corpuscular Hemoglobin Concent 35.2 32.0-36.0 g/dL Red Cell Distribution Width 12.7 11.8-14.3 % Platelet Count 484 H 140-450 10^3/uL Mean Platelet Volume 7.1 6.9-10.8 fL Neutrophils (%) (Auto) 50.4 37.0-80.0 % Lymphocytes (%) (Auto) 33.6 10.0-50.0 % Monocytes (%) (Auto) 10.1 0.0-12.0 % Eosinophils (%) (Auto) 5.5 0.0-7.0 % Basophils (%) (Auto) 0.4 0.0-2.0 % Neutrophils # (Auto) 2.5 1.6-8.6 10 ^3/uL Lymphocytes # (Auto) 1.7 0.4-5.4 10 ^3/uL Monocytes # (Auto) 0.5 0-1.3 10 ^3/uL Eosinophils # (Auto) 0.3 0-0.8 10 ^3/uL Basophils # (Auto) 0 0-0.2 10 ^3/uL Nucleated Red Blood Cells 0.1 % Sodium Level 139 136-145 mmol/L Potassium Level 3.6 3.5-5.1 mmol/L Chloride Level 105 98-107 mmol/L Carbon Dioxide Level 24 20-31 mmol/L Anion Gap 10 5-15 Blood Urea Nitrogen 12 9-23 mg/dL Creatinine 1.16 H 0.550-1.02 mg/dL Glomerular Filtration Rate Calc 53 >90 mL/min BUN/Creatinine Ratio 10.3 10.0-20.0 Serum Glucose 120 H 74-106 mg/dL Hemoglobin A1c 7.0 H <5.7 % A1C Calcium Level 10.2 8.7-10.4 mg/dL Total Bilirubin 0.5 0.2-1.0 mg/dL Aspartate Amino Transferase (AST) 28 13-40 U/L Alanine Aminotransferase (ALT) 41 H 7-40 U/L Alkaline Phosphatase 100 46-116 U/L Total Protein 7.2 5.7-8.2 g/dL Albumin 4.3 3.2-4.8 g/dL POC Glucose 123 H 70-106 mg/dl Lactic Acid Level 1.4 0.4-2.0 mmol/L Troponin I High Sensitivity 5 </=34 ng/L Assessment chest pain diverticulitis abd pain HTN HL Plan/Recommendation cont abx and IVF pt sees me in clinic outpt will cont tele for now fu GI recs/specialist eval Plan discussed with: Patient JAYA STUART MD Jul 26, 2024 11:28
[2024-07-26] MEDS: ACCU-CHEK COMFORT CURVE STRIP VI SCH (11:32)
[2024-07-26] MEDS: InsuLIN REG 1unit/0.01ml Soln (100units/ml) SC SCH (11:37)
--- NOTE | 2024-07-26 12:32 | DVHCONRES ---
Date Seen: Jul 26, 2024 Resident Creating Document: SCOTTIE ANNA RESIDENT History of Present Illness 63-year-old female with PMHx of hypertension, hyperlipidemia, RADHA on CPAP, diverticulosis, diabetes mellitus type 2, asthma, presented to the ER with a chief complaint of abdominal pain and chest pain for the past 1 week. Associated features include nausea/vomiting. Patient seen and examined at the bedside. Family History: Cardiovascular disease G8 FATHER Diabetes mellitus G8 MOTHER G8 FATHER Hypertension G8 MOTHER Allergies: Coded Allergies: Clonidine (Verified Allergy, Intermediate, 06/29/19) Morphine (Verified Allergy, Mild, 06/29/19) Patient reports dizziness and tolerates [place] 10/325 well at home. Pregabalin (Verified Allergy, Unknown, 06/29/19) Sulfa Antibiotics (Verified Allergy, Unknown, 10/14/20) Nitroglycerin (Unverified Adverse Reaction, Intermediate, syncope, 10/03/23) Home Meds Reported Medications Atorvastatin Calcium (ATORVASTATIN CALCIUM) 20 Mg Tab, 1 TAB PO DAILY 07/25/24 Senna (Senokot) 8.6 Mg Tab, 2 TAB PO HS, TAB 10/03/23 Dicyclomine Hcl (BENTYL CAPSULE) 10 Mg Cp, 10 MG PO BID, CAP 10/03/23 Benzonatate (Benzonatate) 100 Mg Cap, 100 MG PO PRN, CAP 10/03/23 Lactulose (Constulose) 10 Gm/15 Ml Michelle, 10 GM PO DAILY, ML 10/03/23 Ezetimibe (Zetia) 10 Mg Tab, 10 MG PO DAILY, TAB 05/16/23 Finerenone (Kerendia) 10 Mg Tab, 10 MG PO DAILY, TAB 05/16/23 Dapagliflozin Propanediol (Farxiga) 10 Mg Tab, 10 MG PO DAILY, TAB 05/16/23 Cholecalciferol (D3-50) 50,000 Unit Cap, 27961 UNIT PO Q14D, CAP 05/16/23 Fenofibrate (FENOFIBRATE) 145 Mg Tab, 145 MG OR DAILY, TAB 05/16/23 Albuterol Sulfate (Albuterol Sulfate) 0.083 % Neb, 0.083 % IN QID, INH 10/14/20 Hydrocodone-Acetaminophen ([place] 10-325 mg) 1 Tab Tab, 1 TAB PO QID, TAB 02/25/20 Clopidogrel Bisulfate (Plavix) 75 Mg Tab, 1 TAB PO DAILY, #90 TAB 1 Refill 06/29/19 Aspirin (Aspir-Low) 81 Mg Tab, 81 MG PO DAILY for 30 Days, MG 06/29/19 Insulin Glargine (Lantus) 100 Unit/Ml Inj, 40 UNIT SC QAM, INJ 06/29/19 Nifedipine (Nifedipine Er) 90 Mg Tab, 1 TAB PO DAILY, #30 TAB 5 Refills 06/29/19 Current Medications Current Medications Medications (Trade) Dose Ordered Sig/Meryl Route PRN Reason Start Time Stop Time Status Last Admin Metronidazole 100 ml @ 100 mls/hr Q8HR IV 07/25/24 14:00 07/26/24 06:00 Ceftriaxone Sodium 50 ml @ 100 mls/hr DAILY@09 IV 07/26/24 09:00 07/26/24 09:58 Sodium Chloride 1,000 ml @ 100 mls/hr Q10H IV 07/25/24 13:15 07/26/24 09:58 Acetaminophen/ Hydrocodone Bitart ([place] 5/325MG Tab) 1 tab Q4HP PRN PO MODERATE PAIN (4-6 PAIN SCALE) 07/25/24 13:15 07/25/24 21:59 Ondansetron HCl (Zofran) 4 mg Q4HP PRN IV NAUSEA / VOMITING 07/25/24 13:15 Docusate Sodium (Colace Capsule) 100 mg BIDPRN PRN PO FOR CONSTIPATION 07/25/24 13:15 Acetaminophen (Tylenol Tablet) 650 mg Q6HP PRN PO PAIN SCALE 1-3 OR TEMP>100.4 07/25/24 13:15 07/26/24 10:00 Morphine Sulfate 2 mg Q4HPRN PRN IV SEVERE PAIN (7-10 PAIN SCALE) 07/25/24 13:15 Cancel Nitroglycerin (Ntrostat Sublingual) 0.4 mg Q5MINP PRN SL FOR CHEST PAIN 07/25/24 13:15 Morphine Sulfate 2 mg Q30M PRN IV FOR CHEST PAIN 07/25/24 13:15 Cancel Aspirin (Ecotrin Enteric Coated Tablet) 81 mg DAILY PO 07/26/24 10:00 07/26/24 09:59 Clopidogrel Bisulfate (Plavix) 75 mg DAILY PO 07/26/24 10:00 07/26/24 09:59 Dicyclomine HCl (Bentyl Capsule) 10 mg BID PO 07/25/24 22:00 07/26/24 09:59 Insulin Glargine (Lantus) 40 units QAM SC 07/26/24 07:00 07/26/24 10:22 DC Patient Own Medication 10 mg DAILY PO 07/26/24 10:00 07/26/24 10:22 DC Patient Own Medication 145 mg DAILY PO 07/26/24 10:00 07/26/24 10:22 DC Patient Own Medication 10 mg DAILY PO 07/26/24 10:00 Patient Own Medication 1 tab DAILY PO 07/26/24 10:00 UNV Atorvastatin Calcium (Lipitor) 20 mg DAILY PO 07/26/24 10:00 Diagnostic Test (Pha) (Accu-Chek Comfort Curve T) 1 strip ACHS 07/25/24 17:00 07/26/24 10:41 DC 07/26/24 06:03 Insulin Human Regular (InsuLIN R) HS SC 07/25/24 22:00 07/26/24 10:41 DC Insulin Human Regular (InsuLIN R) AC SC 07/25/24 17:00 07/26/24 10:22 DC Dextrose 50 ml UD PRN IV Blood Sugar LESS THAN 60 07/25/24 13:30 Cancel Nifedipine (Procardia Xl (Time-Release)) 90 mg DAILY PO 07/26/24 10:00 07/26/24 10:02 Diagnostic Test (Pha) (Accu-Chek Comfort Curve T) 1 strip ACHS 07/26/24 11:30 07/26/24 11:32 Insulin Human Regular (InsuLIN R) ACHS SC 07/26/24 11:30 07/26/24 11:37 Dextrose 50 ml UD PRN IV Blood Sugar LESS THAN 60 07/26/24 10:30 Vital Signs Vital Signs Date Time Temp Pulse Resp B/P (MAP) Pulse Ox O2 Delivery O2 Flow Rate FiO2 07/26/24 12:09 92 18 140/80 95 07/26/24 09:00 97.9 97.9 07/25/24 23:24 Room Air* 0 21 Physical Exam Patient lying in bed, in no acute distress General: Well-built, afebrile, palor, mucosae are moist Cardiovascular: Regular S1 and S2. No murmurs, gallops or rubs. No JVD elevation. No pedal edema Respiratory: Normal B/L air entry on room air. Clear lung sounds on auscultat ion Abdomen: Soft, nontender, nondistended, normoactive bowel sounds, no rebound tenderness, no organomegaly, no masses Genitourinary: Deferred MSK/skin: Mobilizes 4 limbs. Skin is dry and warm Neurological: No motor, no sensitive deficits, normal speech. Pupils are isocoric and reactive. Psych/Mental Status: A/Ox3 Labs/Diagnostic Data Labs Test 07/26/24 11:31 07/26/24 06:40 07/25/24 12:15 Range/Units POC Glucose 207 H 70-106 mg/dl White Blood Count 5.0 # 4.4-10.8 10^3/uL Red Blood Count 3.67 L 4.0-5.20 10^6/uL Hemoglobin 11.6 L 12.2-16.2 g/dL Hematocrit 33.1 #L 36.0-46.0 % Mean Corpuscular Volume 90.1 80.0-100.0 fL Mean Corpuscular Hemoglobin 31.7 28.0-32.0 pg Mean Corpuscular Hemoglobin Concent 35.2 32.0-36.0 g/dL Red Cell Distribution Width 12.7 11.8-14.3 % Platelet Count 484 H 140-450 10^3/uL Mean Platelet Volume 7.1 6.9-10.8 fL Neutrophils (%) (Auto) 50.4 37.0-80.0 % Lymphocytes (%) (Auto) 33.6 10.0-50.0 % Monocytes (%) (Auto) 10.1 0.0-12.0 % Eosinophils (%) (Auto) 5.5 0.0-7.0 % Basophils (%) (Auto) 0.4 0.0-2.0 % Neutrophils # (Auto) 2.5 1.6-8.6 10 ^3/uL Lymphocytes # (Auto) 1.7 0.4-5.4 10 ^3/uL Monocytes # (Auto) 0.5 0-1.3 10 ^3/uL Eosinophils # (Auto) 0.3 0-0.8 10 ^3/uL Basophils # (Auto) 0 0-0.2 10 ^3/uL Nucleated Red Blood Cells 0.1 % Sodium Level 139 136-145 mmol/L Potassium Level 3.6 3.5-5.1 mmol/L Chloride Level 105 98-107 mmol/L Carbon Dioxide Level 24 20-31 mmol/L Anion Gap 10 5-15 Blood Urea Nitrogen 12 9-23 mg/dL Creatinine 1.16 H 0.550-1.02 mg/dL Glomerular Filtration Rate Calc 53 >90 mL/min BUN/Creatinine Ratio 10.3 10.0-20.0 Serum Glucose 120 H 74-106 mg/dL Hemoglobin A1c 7.0 H <5.7 % A1C Calcium Level 10.2 8.7-10.4 mg/dL Total Bilirubin 0.5 0.2-1.0 mg/dL Aspartate Amino Transferase (AST) 28 13-40 U/L Alanine Aminotransferase (ALT) 41 H 7-40 U/L Alkaline Phosphatase 100 46-116 U/L Total Protein 7.2 5.7-8.2 g/dL Albumin 4.3 3.2-4.8 g/dL Lactic Acid Level 1.4 0.4-2.0 mmol/L Troponin I High Sensitivity 5 </=34 ng/L Microbiology Date/Time Source Procedure Growth Status 07/25/24 12:15 Blood Blood Culture - Preliminary NO GROWTH AFTER 24 HOURS OF INCUBATION. 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 Elevated ALT secondary to hepatic steatosis CT abdomen completed shows consistent findings with acute sigmoid diverticulitis. Hazy appearance of mesenteric root small shotty mesenteric lymph nodes. Fatty infiltration of liver Plan: Patient underwent colonoscopy by Dr. Gale 09/2023 which was incomplete secondary to moderate sigmoid fixation and a sigmoid stricture Consulted surgeon given the sigmoid stricture and recurrent sigmoid diverticulitis Continue ceftriaxone and IV metronidazole Follow up with liver ultrasound Continue liquid diet Plan discussed with patient in which all questions have been answered Case discussed with Dr. Gale Plan discussed with: Patient SCOTTIE ANNA RESIDENT Jul 26, 2024 12:32
[2024-07-26 14:10] LABS: Urine Bacteria FEW /hpf (None Seen); Urine Blood Negative /uL (Negative); Urine Clarity Clear (Clear); Urine Color Light-Yellow (Yellow); Urine Protein, UAD 1+ (Negative); Urine Specific Gravity 1.016 (1.001-1.035); Urine Squamous Epithelial Cell FEW /hpf (<5); Urine Urobilinogen Normal (Negative); Urine WBC < 1 /HPF (0-5)
--- NOTE | 2024-07-26 18:01 | DVH ---
INDICATION: Transaminitis TECHNIQUE: Multiple real-time sonographic images were obtained of the right upper quadrant. COMPARISON: None FINDINGS: The liver demonstrates increased echotexture without focal mass lesions. The liver measure s 17.5 cm. There is no intrahepatic or extrahepatic ductal dilatation. The common duct measures 0.3 cm. The gallbladder is without evidence of stone or sludge. The gallbladder wall measures 0.2 cm and is within normal limits. The right kidney measures 9.0 cm. The right kidney is normal in contour, size, and shape. The echog enicity is normal. There is no hydronephrosis. Right lower pole cyst measures 2.0 cm. The pancreas is not well visualized due to overlying bowel gas. IMPRESSION: Hepatic steatosis and hepatomegaly.
[2024-07-27] VITALS (9 sets, daily range): BP systolic 138–147; BP diastolic 67–97; PULSE 64–94; RESP 17–20; TEMP 97.5–98.6; O2SAT 92–100
[2024-07-27 06:49] LABS: Basophils # (auto) 0 10 ^3/uL (0-0.2); Basophils % (auto) 0.7 % (0.0-2.0); Eosinophils # (auto) 0.2 10 ^3/uL (0-0.8); Eosinophils % (auto) 4.5 % (0.0-7.0); Hematocrit 33.3 % (36.0-46.0); Hemoglobin 11.9 g/dL (12.2-16.2); Lymphocytes # (auto) 1.9 10 ^3/uL (0.4-5.4); Lymphocytes % (auto) 39.8 % (10.0-50.0); Mean Corpuscular Hemoglobin 32.3 pg (28.0-32.0); Mean Corpuscular Hgb Conc. 35.6 g/dL (32.0-36.0); Mean Corpuscular Volume 90.6 fL (80.0-100.0); Monocytes # (auto) 0.5 10 ^3/uL (0-1.3); Monocytes % (auto) 9.7 % (0.0-12.0); Neutrophils # (auto) 2.2 10 ^3/uL (1.6-8.6); Neutrophils % (auto) 45.3 % (37.0-80.0); Nucleated Red Blood Cells % 0.1 %; Platelet Count (auto) 514 10^3/uL (140-450); Red Blood Cells 3.68 10^6/uL (4.0-5.20); Red Cell Distribution Width 12.8 % (11.8-14.3); White Blood Cell 4.8 10^3/uL (4.4-10.8)
[2024-07-27 07:00] LABS: Anion Gap 9 (5-15); Carbon Dioxide 27 mmol/L (20-31); Chloride 103 mmol/L (98-107); Potassium 4.1 mmol/L (3.5-5.1); Sodium 139 mmol/L (136-145)
[2024-07-27 07:03] LABS: Alanine Aminotransferase 41 U/L (7-40); Albumin 4.3 g/dL (3.2-4.8); Alkaline Phosphatase 106 U/L (46-116); Aspartate Aminotransferase 26 U/L (13-40); Bilirubin, Direct < 0.1 mg/dL (<0.3); Bilirubin, Total 0.4 mg/dL (0.2-1.0); Total Protein 7.3 g/dL (5.7-8.2)
[2024-07-27 07:06] LABS: BUN/Creatinine Ratio 8.9 (10.0-20.0); Blood Urea Nitrogen 10 mg/dL (9-23); Glucose 122 mg/dL (74-106)
--- NOTE | 2024-07-27 10:01 | DVHPN2 ---
Progress Note Date Seen: Jul 27, 2024 Medical Necessity Reason Pt with a Central, PICC or Fol: No Subjective Patient reports: Feels better Other Systems: surgical consult pending Objective vital signs Vital Sign Date Time Temp Pulse Resp B/P (MAP) Pulse Ox O2 Delivery O2 Flow Rate FiO2 07/27/24 09:00 97.6 73 19 147/91 (109) 100 97.6 07/27/24 01:50 Facial BiPAP Mask 28 07/26/24 20:00 0 Total Intake and Output 07/26/24 07/26/24 07/27/24 15:00 23:00 07:00 Intake Total 50 ml 1000 ml 1600 ml Balance 50 ml 1000 ml 1600 ml medications Current Medications Medications Dose Ordered Sig/Meryl Route Start Time Stop Time Status Last Admin Dose Admin Metronidazole 100 ml @ 100 mls/hr Q8HR IV 07/25/24 14:00 07/27/24 05:35 100 MLS/HR Ceftriaxone Sodium 50 ml @ 100 mls/hr DAILY@09 IV 07/26/24 09:00 07/27/24 08:42 100 MLS/HR Sodium Chloride 1,000 ml @ 100 mls/hr Q10H IV 07/25/24 13:15 07/27/24 05:39 100 MLS/HR Acetaminophen/ Hydrocodone Bitart 1 tab Q4HP PRN PO 07/25/24 13:15 07/26/24 21:50 1 TAB Ondansetron HCl 4 mg Q4HP PRN IV 07/25/24 13:15 Docusate Sodium 100 mg BIDPRN PRN PO 07/25/24 13:15 Acetaminophen 650 mg Q6HP PRN PO 07/25/24 13:15 07/26/24 10:00 650 MG Morphine Sulfate 2 mg Q4HPRN PRN IV 07/25/24 13:15 Cancel Nitroglycerin 0.4 mg Q5MINP PRN SL 07/25/24 13:15 Morphine Sulfate 2 mg Q30M PRN IV 07/25/24 13:15 Cancel Aspirin 81 mg DAILY PO 07/26/24 10:00 07/26/24 09:59 81 MG Clopidogrel Bisulfate 75 mg DAILY PO 07/26/24 10:00 07/26/24 09:59 75 MG Dicyclomine HCl 10 mg BID PO 07/25/24 22:00 07/26/24 21:50 10 MG Patient Own Medication 10 mg DAILY PO 07/26/24 10:00 Patient Own Medication 1 tab DAILY PO 07/26/24 10:00 UNV Atorvastatin Calcium 20 mg DAILY PO 07/26/24 10:00 Dextrose 50 ml UD PRN IV 07/25/24 13:30 Cancel Nifedipine 90 mg DAILY PO 07/26/24 10:00 07/26/24 10:02 90 MG Diagnostic Test (Pha) 1 strip ACHS 07/26/24 11:30 07/27/24 06:02 1 STRIP Insulin Human Regular ACHS SC 07/26/24 11:30 07/26/24 21:52 3 UNITS Dextrose 50 ml UD PRN IV 07/26/24 10:30 Examination: GENERAL:Abnormal, HEENT:Abnormal, LUNGS:Abnormal, CVS:Abnormal, ABDOMEN:Abnormal laboratory and microbiology Laboratory Tests 07/27/24 06:03 Test 07/27/24 06:03 Range/Units Serum Glucose 122 H 74-106 mg/dL Microbiology Date/Time Source Procedure Growth Status 07/25/24 12:15 Blood Blood Culture - Preliminary NO GROWTH AFTER 24 HOURS OF INCUBATION. Resulted Problem List/Assessment/Plan Problem List/Assessment/Plan diverticulitis sigmoid stricture htn bowel rest abx per specialist and primary service cv clearance if indicated check echo Plan discussed with: Patient Date of Service: Jul 27, 2024 Billing Provider: JAYA STUART MD Common Visit Codes: NOT BILLABLE JAYA STUART MD Jul 27, 2024 10:01
[2024-07-27] MEDS: ONDANSETRON HCL 4 MG/2 ML VIAL IV PRN (10:07)
--- NOTE | 2024-07-27 16:56 | DVHPN2 ---
Progress Note Date Seen: Jul 27, 2024 Resident Creating Document: SCOTTIE ANNA RESIDENT Medical Necessity Reason Pt with a Central, PICC or Fol: No Subjective Review of Systems 63-year-old female with PMHx of hypertension, hyperlipidemia, RADHA on CPAP, diverticulosis, diabetes mellitus type 2, asthma, presented to the ER with a chief complaint of abdominal pain and chest pain for the past 1 week. Associated features include nausea/vomiting. Patient seen and examined at the bedside. No acute complaint Objective vital signs Vital Sign Date Time Temp Pulse Resp B/P (MAP) Pulse Ox O2 Delivery O2 Flow Rate FiO2 07/27/24 13:00 98.5 72 17 147/84 (105) 99 98.5 07/27/24 08:00 Room Air* 0 21 Total Intake and Output 07/26/24 07/26/24 07/27/24 15:00 23:00 07:00 Intake Total 50 ml 1000 ml 1600 ml Balance 50 ml 1000 ml 1600 ml medications Current Medications Medications Dose Ordered Sig/Meryl Route Start Time Stop Time Status Last Admin Dose Admin Metronidazole 100 ml @ 100 mls/hr Q8HR IV 07/25/24 14:00 07/27/24 14:15 100 MLS/HR Ceftriaxone Sodium 50 ml @ 100 mls/hr DAILY@09 IV 07/26/24 09:00 07/27/24 08:42 100 MLS/HR Sodium Chloride 1,000 ml @ 100 mls/hr Q10H IV 07/25/24 13:15 07/27/24 05:39 100 MLS/HR Acetaminophen/ Hydrocodone Bitart 1 tab Q4HP PRN PO 07/25/24 13:15 07/26/24 21:50 1 TAB Ondansetron HCl 4 mg Q4HP PRN IV 07/25/24 13:15 07/27/24 10:07 4 MG Docusate Sodium 100 mg BIDPRN PRN PO 07/25/24 13:15 Acetaminophen 650 mg Q6HP PRN PO 07/25/24 13:15 07/26/24 10:00 650 MG Morphine Sulfate 2 mg Q4HPRN PRN IV 07/25/24 13:15 Cancel Nitroglycerin 0.4 mg Q5MINP PRN SL 07/25/24 13:15 Morphine Sulfate 2 mg Q30M PRN IV 07/25/24 13:15 Cancel Aspirin 81 mg DAILY PO 07/26/24 10:00 07/27/24 10:01 81 MG Clopidogrel Bisulfate 75 mg DAILY PO 07/26/24 10:00 07/27/24 10:00 75 MG Dicyclomine HCl 10 mg BID PO 07/25/24 22:00 07/27/24 10:01 10 MG Patient Own Medication 10 mg DAILY PO 07/26/24 10:00 Patient Own Medication 1 tab DAILY PO 07/26/24 10:00 UNV Atorvastatin Calcium 20 mg DAILY PO 07/26/24 10:00 Dextrose 50 ml UD PRN IV 07/25/24 13:30 Cancel Nifedipine 90 mg DAILY PO 07/26/24 10:00 07/27/24 10:01 90 MG Diagnostic Test (Pha) 1 strip ACHS 07/26/24 11:30 07/27/24 11:21 1 STRIP Insulin Human Regular ACHS SC 07/26/24 11:30 07/26/24 21:52 3 UNITS Dextrose 50 ml UD PRN IV 07/26/24 10:30 Examination Patient lying in bed, in no acute distress General: Well-built, afebrile, palor, mucosae are moist Cardiovascular: Regular S1 and S2. No murmurs, gallops or rubs. No JVD elevation. No pedal edema Respiratory: Normal B/L air entry on room air. Clear lung sounds on auscultation Abdomen: Soft, nontender, nondistended, normoactive bowel sounds, no rebound tenderness, no organomegaly, no masses Genitourinary: Deferred MSK/skin: Mobilizes 4 limbs. Skin is dry and warm Neurological: No motor, no sensitive deficits, normal speech. Pupils are isocoric and reactive. Psych/Mental Status: A/Ox3 laboratory and microbiology Laboratory Tests 07/27/24 06:03 Test 07/27/24 06:03 Range/Units Serum Glucose 122 H 74-106 mg/dL Microbiology Date/Time Source Procedure Growth Status 07/25/24 12:15 Blood Blood Culture - Preliminary NO GROWTH AFTER 48 HOURS OF INCUBATION. Resulted Labs and/or images reviewed: Labs reviewed by me, Image(s) reviewed by me Problem List/Assessment/Plan Problem List/Assessment/Plan Recurrent sigmoid diverticulitis (previously in 2020, 2017) Anemia, normocytic BRAEDEN likely VMN Hepatic steatosis Adrenal gland adenoma Diabetes mellitus type 2 -A1c 7 Hypertension ? Elevated ALT secondary to hepatic steatosis CT abdomen completed shows consistent findings with acute sigmoid diverticulitis. Hazy appearance of mesenteric root small shotty mesenteric lymph nodes. Fatty infiltration of liver Plan: Patient underwent colonoscopy by Dr. Gale 09/2023 which was incomplete secondary to moderate sigmoid fixation and a sigmoid stricture. Pending surgical evaluation. Consulted surgeon given the sigmoid stricture and recurrent sigmoid diverticulitis Continue ceftriaxone and IV metronidazole Continue full liquid diet Plan discussed with patient in which all questions have been answered Plan discussed with: Patient SCOTTIE ANNA RESIDENT Jul 27, 2024 16:56
--- NOTE | 2024-07-27 20:06 | DVHPN2 ---
Subjective in bed resting and feeling well Changes from previous H/P or p: No Changes Eyes: No Pain, No Vision change, No Conjunctivae inflammation, No Eyelid inflammation, No Other, No Redness ENT: No Ear pain, No Ear discharge, No Nose pain, No Nose discharge, No Nose congestion, No Mouth pain, No Mouth swelling, No Throat pain, No Throat swelling, No Other Cardiovascular: Chest Pain; No Palpitations, No Orthopnea, No Paroxysmal Noc. Dyspnea, No Edema, No Lt Headedness, No Other Respiratory: No Cough, No Dry, No Shortness of breath, No SOB with excertion, No Wheezing, No Hemoptysis, No Pleuritic Pain, No Sputum, No Other Gastrointestinal: Nausea, Vomiting, Abdominal Pain; No Diarrhea, No Constipation, No Melena, No Hematochezia, No Other Genitourinary: No Dysuria, No Frequency, No Incontinence, No Hematuria, No Retention, No Other Musculoskeletal: No other, No neck pain, No shoulder pain, No arm pain, No back pain, No hand pain, No leg pain, No foot pain Skin: No Rash, No Lesions, No Jaundice, No Bruising, No Other Objective Vitals Vital Signs Date Time Temp Pulse Resp B/P (MAP) Pulse Ox O2 Delivery O2 Flow Rate FiO2 07/27/24 17:00 98.4 82 20 138/67 (90) 92 98.4 07/27/24 08:00 Room Air* 0 21 Intake/Output Intake and Output 07/27/24 05:00 Intake Total 1850 ml Balance 1850 ml Intake Oral 1500 ml IV Total 350 ml # Voids 10 General Appearance: Alert, Oriented X3 HEENT: PERRLA Lungs: Clear to auscultation Medications Current Medications Medications Dose Ordered Sig/Meryl Route Start Time Stop Time Status Last Admin Dose Admin Metronidazole 100 ml @ 100 mls/hr Q8HR IV 07/25/24 14:00 07/27/24 14:15 100 MLS/HR Ceftriaxone Sodium 50 ml @ 100 mls/hr DAILY@09 IV 07/26/24 09:00 07/27/24 08:42 100 MLS/HR Sodium Chloride 1,000 ml @ 100 mls/hr Q10H IV 07/25/24 13:15 07/27/24 17:08 100 MLS/HR Acetaminophen/ Hydrocodone Bitart 1 tab Q4HP PRN PO 07/25/24 13:15 07/26/24 21:50 1 TAB Ondansetron HCl 4 mg Q4HP PRN IV 07/25/24 13:15 07/27/24 10:07 4 MG Docusate Sodium 100 mg BIDPRN PRN PO 07/25/24 13:15 Acetaminophen 650 mg Q6HP PRN PO 07/25/24 13:15 07/26/24 10:00 650 MG Morphine Sulfate 2 mg Q4HPRN PRN IV 07/25/24 13:15 Cancel Nitroglycerin 0.4 mg Q5MINP PRN SL 07/25/24 13:15 Morphine Sulfate 2 mg Q30M PRN IV 07/25/24 13:15 Cancel Aspirin 81 mg DAILY PO 07/26/24 10:00 07/27/24 10:01 81 MG Clopidogrel Bisulfate 75 mg DAILY PO 07/26/24 10:00 07/27/24 10:00 75 MG Dicyclomine HCl 10 mg BID PO 07/25/24 22:00 07/27/24 10:01 10 MG Patient Own Medication 10 mg DAILY PO 07/26/24 10:00 Patient Own Medication 1 tab DAILY PO 07/26/24 10:00 UNV Atorvastatin Calcium 20 mg DAILY PO 07/26/24 10:00 Dextrose 50 ml UD PRN IV 07/25/24 13:30 Cancel Nifedipine 90 mg DAILY PO 07/26/24 10:00 07/27/24 10:01 90 MG Diagnostic Test (Pha) 1 strip ACHS 07/26/24 11:30 07/27/24 17:06 1 STRIP Insulin Human Regular ACHS SC 07/26/24 11:30 07/26/24 21:52 3 UNITS Dextrose 50 ml UD PRN IV 07/26/24 10:30 Laboratory Results Laboratory Tests 07/27/24 06:03 Chemistry Test 07/27/24 06:03 Albumin 4.3 g/dL (3.2-4.8) Calcium Level 10.0 mg/dL (8.7-10.4) Total Protein 7.3 g/dL (5.7-8.2) LFT Test 07/27/24 06:03 Alanine Aminotransferase (ALT) 41 U/L (7-40) H Alkaline Phosphatase 106 U/L (46-116) Aspartate Amino Transferase (AST) 26 U/L (13-40) Direct Bilirubin < 0.1 mg/dL (<0.3) Total Bilirubin 0.4 mg/dL (0.2-1.0) Urinalysis Test 07/26/24 10:45 Urine Color Light-yellow (Yellow) Urine Clarity Clear (Clear) Urine pH 6.0 (5.0-9.0) Urine Specific [place] 1.016 (1.001-1.035) Urine Protein 1+ (Negative) H Urine Ketones Negative (Negative) Urine Blood Negative /uL (Negative) Urine Nitrite Negative (Negative) Urine Bilirubin Negative (Negative) Urine Urobilinogen Normal mg/dL (Negative) Urine Leukocyte Esterase 1+ /uL (Negative) Urine RBC 1 /hpf (0 - 4) Urine Microscopic WBC < 1 /HPF (0-5) Urine Squamous Epithelial Cells Few /hpf (<5) Urine Bacteria Few /hpf (None Seen) H Urine Glucose Trace mg/dL (Normal) Microbiology Microbiology Date/Time Source Procedure Growth Status 07/25/24 12:15 Blood Blood Culture - Preliminary NO GROWTH AFTER 48 HOURS OF INCUBATION. Resulted Assessment/Plan Assessment/Plan #1 acute diverticulitis with sigmoid stricture #2 dm: ssi #3 htn #4 acute renal failure ?vasomotor nephropathy: ivf #5 h/o sigmoid stricture #6 arthritis #7 hyperlipidemia Continue IV abx Surgical evaluation for sigmoid stricture Plan discussed with: Patient Date of Service: Jul 27, 2024 Billing Provider: EDSON KAUFMAN MD Common Visit Codes: [id number] INP/OBS CARE(HIGH) EDSON KAUFMAN MD Jul 27, 2024 20:06
[2024-07-28 01:03] VITALS: BP 137/66; PULSE 74; RESP 20; TEMP 97.1; O2SAT 95
[2024-07-28 02:15] VITALS: PULSE 67; O2SAT 100
[2024-07-28 04:37] VITALS: BP 140/72; PULSE 70; RESP 20; TEMP 98; O2SAT 20
[2024-07-28 06:10] VITALS: PULSE 80; O2SAT 100
[2024-07-28 09:00] VITALS: BP 143/64; PULSE 76; RESP 19; TEMP 98.4; O2SAT 100
--- NOTE | 2024-08-03 16:17 | DVHSR ---
APPROVED REPORT EXAM: Two-dimensional and M-mode echocardiogram with Doppler and color Doppler. Blood Pressure: 147/91 mmHg INDICATION Pre-Op RISK FACTORS Height: 67, Weight: 166 DIMENSIONS LVDd4.0 (3.8-5.7cm)LA (2D)3.4 (1.9-4.0cm)Aortic Root3.4 (2.0-3.7cm) LVDs2.6 (2.5-4.0cm)LA (MM) (1.9-4.0cm)Aortic Cusp Exc1.6 (1.5-2.0cm) EF (%) 65.0 (55-70%)Rt. Atrium3.4 (1.9-4.0cm)Asc. Aorta cm IVSd1.1 (0.7-1.1cm)RV (D) (1.8-2.4cm) PWd1.1 (0.7-1.1cm) Mitral Valve MitralMitral Stenosis E wave0.66m/sMV Mean GR.mmHg A wave0.78m/sMV Peak GR.mmHg E/A ratio0.82D MVAcm2 DECEL [id number] 1/2 [id number] IVRTmsDop MVA3.47cm2 Aortic Valve Aortic ValveAortic Stenosis V10.85m/Sierra Mean GR.3mmHg V21.20m/Sierra Peak GR.6mmHg LVOT Diameter1.7 (1.8-2.4cm)Doppler AVA1.61cm2 AI P 1/2 Eann228.65ms Pulmonic Valve V20.72m/s Tricuspid Valve TR Velocity2.14m/s [id number] Conclusion lvef 65% by visual estimate septal hypertrophy normal RV function, normal atria no severe valve abnormalities noted
== END 2024-07-28 11:42 | disposition left against medical advice (07) | DRG 391 ==
LOC: ER 09:05 → TELE 13:04 → TELE-CENTR 23:44 → CENTRAL 07-26 12:32
PROVIDERS: ADMIT Nurse Practitioner Family; ATTEND Hospitalist
PROC: 5A09357 Assistance with Respiratory Ventilation, Less than 24 Consecutive Hours, Continuous Positive Airway Pressure (ICD-10-PCS; principal; 2024-07-26)
PROC: 5A09357 Assistance with Respiratory Ventilation, Less than 24 Consecutive Hours, Continuous Positive Airway Pressure (ICD-10-PCS; 2024-07-27)
DX: K57.32 Diverticulitis of large intestine without perforation or abscess without bleeding (principal); N17.0 Acute kidney failure with tubular necrosis; I10 Essential (primary) hypertension; E78.5 Hyperlipidemia, unspecified; G47.30 Sleep apnea, unspecified; E11.65 Type 2 diabetes mellitus with hyperglycemia; K76.0 Fatty (change of) liver, not elsewhere classified; D64.9 Anemia, unspecified; J45.909 Unspecified asthma, uncomplicated; D35.01 Benign neoplasm of right adrenal gland; Z88.5 Allergy status to narcotic agent; Z88.2 Allergy status to sulfonamides; Z88.8 Allergy status to other drugs, medicaments and biological substances; Z79.899 Other long term (current) drug therapy; Z79.4 Long term (current) use of insulin; Z82.49 Family history of ischemic heart disease and other diseases of the circulatory system; Z83.3 Family history of diabetes mellitus
CPT/HCPCS: 36415; 71046; 74177; 76705; 80048; 80053; 80076; 81001; 82962; 83036; 83605; 84484; 85025; 87040; 93005; 93306; 94660; 96365; 96375; 99291; G0378; J1815; J1885; J2405; J3490

== ENCOUNTER 2025-02-11 07:40 | Inpatient (IN) | payer MEDICARE, MEDICAID ==
[~2025-02-11] VITALS: Ht 170.2 cm; Wt 75.3 kg
[~2025-02-11 07:40] MED LIST changes: +ATOR20TA50 PO
--- NOTE | 2025-02-11 07:53 | ED.PDOC ---
Musculoskeletal HPI Comments This is a 64 year old female FATEMEHA presenting to the ED with chief complaint of hip pain. Patient reports that while getting ready this morning, she started to suddenly experience left sided hip pain. Patient relays that she has previous arthritis of the left hip, planning to have her left hip replaced soon. Patient states she was told not to use steroids due to having history of DM. Patient denies any fall, injury, numbness, weakness, or tingling. Time Seen by MD: 07:50 Primary Care Provider: IVAN Reviewed Notes: Nurses Notes, Medications, Allergies Allergies: Coded Allergies: Clonidine (Verified Allergy, Intermediate, 06/29/19) Morphine (Verified Allergy, Mild, 06/29/19) Patient reports dizziness and tolerates [place] 10/325 well at home. Pregabalin (Verified Allergy, Unknown, 06/29/19) Sulfa Antibiotics (Verified Allergy, Unknown, 10/14/20) Nitroglycerin (Unverified Adverse Reaction, Intermediate, syncope, 10/03/23) Home Meds Reported Medications Atorvastatin Calcium (ATORVASTATIN CALCIUM) 20 Mg Tab, 1 TAB PO DAILY 07/25/24 Senna (Senokot) 8.6 Mg Tab, 2 TAB PO HS, TAB 10/03/23 Dicyclomine Hcl (BENTYL CAPSULE) 10 Mg Cp, 10 MG PO BID, CAP 10/03/23 Benzonatate (Benzonatate) 100 Mg Cap, 100 MG PO PRN, CAP 10/03/23 Lactulose (Constulose) 10 Gm/15 Ml Michelle, 10 GM PO DAILY, ML 10/03/23 Ezetimibe (Zetia) 10 Mg Tab, 10 MG PO DAILY, TAB 05/16/23 Finerenone (Kerendia) 10 Mg Tab, 10 MG PO DAILY, TAB 05/16/23 Dapagliflozin Propanediol (Farxiga) 10 Mg Tab, 10 MG PO DAILY, TAB 05/16/23 Cholecalciferol (D3-50) 50,000 Unit Cap, 61185 UNIT PO Q14D, CAP 05/16/23 Fenofibrate (FENOFIBRATE) 145 Mg Tab, 145 MG OR DAILY, TAB 05/16/23 Albuterol Sulfate (Albuterol Sulfate) 0.083 % Neb, 0.083 % IN QID, INH 10/14/20 Hydrocodone-Acetaminophen ([place] 10-325 mg) 1 Tab Tab, 1 TAB PO QID, TAB 02/25/20 Clopidogrel Bisulfate (Plavix) 75 Mg Tab, 1 TAB PO DAILY, #90 TAB 1 Refill 06/29/19 Aspirin (Aspir-Low) 81 Mg Tab, 81 MG PO DAILY for 30 Days, MG 06/29/19 Insulin Glargine (Lantus) 100 Unit/Ml Inj, 40 UNIT SC QAM, INJ 06/29/19 Nifedipine (Nifedipine Er) 90 Mg Tab, 1 TAB PO DAILY, #30 TAB 5 Refills 06/29/19 Information Source: Patient Mode of Arrival: Ambulatory Location: Left Extremity Location: Hip Timing: Hours Prehospital treatment: None Severity: Moderate Able to Move Extremity: No Bear Weight: No Pain: Moderate Mechanism: Spontaneous Circumstances: Arthritis, Spontaneous Onset of Symptoms: Spontaneous Symptoms: Pain DVT Risk Factors: NONE Last Tetanus: Unknown Past Medical History PAST MEDICAL HISTORY: Arthritis, Asthma, DM, High Lipids, HTN Surgical History: BTL, , [employer] [facility] History: No Pertinent [employer] [facility] History Family History Family History: Family hx of HTN Social History Smoker: Non-Smoker Alcohol: Denies ETOH Use Drugs: Denies Drug Use Lives In: Home Constitutional: denies: chills, diaphoresis, fatigue, fever, malaise, sweats, weakness, others EENTM: denies: blurred vision, double vision, ear bleeding, ear discharge, ear drainage, ear pain, ear ringing, eye pain, eye redness, hearing loss, mouth pain, mouth swelling, nasal discharge, nose bleeding, nose congestion, nose pain, photophobia, tearing, throat pain, throat swelling, voice changes, others Respiratory: denies: cough, hemoptysis, orthopnea, SOB at rest, shortness of breath, SOB with excertion, stridor, wheezing, others Cardiovascular: denies: chest pain, dizzy spells, diaphoresis, Dyspnea on exertion, edema, irregular heart beat, left arm pain, lightheadedness, palpitations, PND, syncope, others Gastrointestinal: denies: abdomen distended, abdominal pain, blood streaked bowels, constipated, diarrhea, dysphagia, difficulty swallowing, hematemesis, melena, nausea, poor appetite, poor fluid intake, rectal bleeding, rectal pain, vomiting, others Genitourinary: denies: abnormal vagina bleeding, burning, dyspareunia, dysuria, flank pain, frequency, hematuria, incontinence, pain, , vagina discharge, urgency, others Neurological: denies: dizziness, fainting, headache, left sided numbness, left sided weakness, numbness, paresthesia, pre-existing deficit, right sided numbness, right sided weakness, seizure, speech problems, tingling, tremors, weakness, others Musculoskeletal: reports: others (Lt hip pain); denies: back pain, gout, joint pain, joint swelling, muscle pain, muscle stiffness, neck pain Integumetry: denies: bruises, change in color, change in hair/nails, dryness, laceration, lesions, lumps, rash, wounds, others Allergic/Immunocompromised: denies: Difficulty Healing, Frequent Infections, Hives, Itching, others Hematologic/Lymphatic: denies: anemia, blood clots, easy bleeding, easy bruising, swollen glands, others Endocrine: denies: excessive hunger, excessive sweating, excessive thirst, excessive urination, flushing, intolerance to cold, intolerance to heat, un explained weight gain, unexplained weight loss, others Psychiatric: denies: anxiety, bipolar disorder, depression, hopeless, panic disorder, schizophrenia, sleepless, suicidal, others All Other Systems: Reviewed and Negative Physical Exam General Appearance: Moderate Distress, Normal HEENT: Normal ENT Inspection, Pharynx Normal, TMs Normal Neck: Full Range of Motion, Non-Tender, Normal, Normal Inspection Respiratory: Chest Non-Tender, Lungs Clear, No Accessory Muscle Use, No Respiratory Distress, Normal Breath Sounds Cardiovascular: No Edema, No JVD, No Murmur, No Gallop, Normal Peripheral Pulse s, Regular Rate/Rhythm Breast Exam: Deferred Gastrointestinal: No Organomegaly, Non Tender, No Pulsatile Mass, Normal Bowel Sounds, Soft Genitalia: Deferred Pelvic: Deferred Rectal: Deferred Extremities: Decreased range of motion (Left lower extremity), No calf tenderness, Normal capillary refill, No pedal edema Musculoskeletal : Apperance: Normal Neurologic: Alert, animal physiologist II-XII nml as Tested, No Motor Deficits, Normal Affect, Normal Mood, No Sensory Deficits Cerebellar Function: NOT DONE Reflexes: NOT DONE Skin: Dry, Normal Color, Warm Peripheral Pulses: 3+ Radial (R), 3+ Radial (L) Lymphatic: No Adenopathy Was a procedure done? Was a procedure done?: No Differential Diagnosis EXT Differential Diagnosis: Fracture, Sprain, Dislocation, Contusion, Strain, Arthritis X-Ray, Labs, Meds, VS Vital Signs Date Time Temp Pulse Resp B/P (MAP) Pulse Ox O2 Delivery O2 Flow Rate FiO2 02/11/25 08:45 80 15 165/80 02/11/25 07:50 94 Lab Test 02/11/25 08:20 Range/Units White Blood Count 6.0 4.4-10.8 10^3/uL Red Blood Count 3.97 L 4.0-5.20 10^6/uL Hemoglobin 12.7 12.2-16.2 g/dL Hematocrit 36.4 36.0-46.0 % Mean Corpuscular Volume 91.7 80.0-100.0 fL Mean Corpuscular Hemoglobin 32.0 28.0-32.0 pg Mean Corpuscular Hemoglobin Concent 34.9 32.0-36.0 g/dL Red Cell Distribution Width 13.4 11.8-14.3 % Platelet Count 628 H 140-450 10^3/uL Mean Platelet Volume 7.0 6.9-10.8 fL Neutrophils (%) (Auto) 64.8 37.0-80.0 % Lymphocytes (%) (Auto) 25.7 10.0-50.0 % Monocytes (%) (Auto) 7.2 0.0-12.0 % Eosinophils (%) (Auto) 1.6 0.0-7.0 % Basophils (%) (Auto) 0.7 0.0-2.0 % Neutrophils # (Auto) 3.9 1.6-8.6 10 ^3/uL Lymphocytes # (Auto) 1.5 0.4-5.4 10 ^3/uL Monocytes # (Auto) 0.4 0-1.3 10 ^3/uL Eosinophils # (Auto) 0.1 0-0.8 10 ^3/uL Basophils # (Auto) 0 0-0.2 10 ^3/uL Nucleated Red Blood Cells 0.1 % Sodium Level 142 136-145 mmol/L Potassium Level 4.3 3.5-5.1 mmol/L Chloride Level 107 98-107 mmol/L Carbon Dioxide Level 26 20-31 mmol/L Anion Gap 9 5-15 Blood Urea Nitrogen 17 9-23 mg/dL Creatinine 1.34 H 0.550-1.02 mg/dL Glomerular Filtration Rate Calc 44 >90 mL/min BUN/Creatinine Ratio 12.7 10.0-20.0 Serum Glucose 125 H 74-106 mg/dL Calcium Level 10.2 8.7-10.4 mg/dL Troponin I High Sensitivity 7 </=34 ng/L Current Medications Medications (Trade) Dose Ordered Sig/Meryl Route Start Time Stop Time Status Last Admin Sodium Chloride 1,000 ml @ 150 mls/hr Q6H40M ONCE IV 02/11/25 08:00 02/11/25 14:39 02/11/25 08:50 Ondansetron HCl (Zofran) 4 mg ONCE ONCE IV 02/11/25 08:00 02/11/25 08:01 DC 02/11/25 08:51 Patient alert. Complaining of left hip pain. Vitals stable. Answering questions. Unable to move her extremity. Establish intravenous access. Was given fluids. Was given Zofran. Was given [place] She does not want to take morphine. Blood pressure elevated. Was given clonidine. Reviewed her history. Possibly will need surgery on the hip. Explained to the patient. Continue monitoring. Time of 1ST Reevaluation: 08:49 Reevaluation 1ST: Unchanged Patient Education/Counseling: Diagnosis, Treatment Family Education/Counseling: No Family Present Departure 1 Departure Time of Disposition: 09:00 Impression: Primary Impression: Hypertensive urgency Additional Impressions: Osteoarthritis Qualified Codes: M16.12 - Unilateral primary osteoarthritis, left hip Uncontrolled diabetes mellitus Qualified Codes: E13.65 - Other specified diabetes mellitus with hyperglycemia Disposition: ADMITTED INPATIENT Admit to: Med Surg Condition: Guarded Critical Care Note Critical Care Time?: No Stability Stability form required: No Heart Score Heart Score: Heart Score Response (Comments) Value History N/A 0 EKG N/A 0 Age N/A 0 Risk Factors N/A 0 Troponin N/A 0 Total 0 I personally scribed for DANNA CEE MD [email or web address]) on 02/11/25 at 07:53. Electronically submitted by Henrry Marks ([email or web address]). DANNA CEE MD Feb 11, 2025 07:53
--- NOTE | 2025-02-11 07:55 | ECG ---
[facility] Test Date: 2025-02-11 Test Time: 07:50:36 Pat Name: SHALA PAGE Department: [facility] ED Patient ID: [facility]-[id number] Room: 0297T Gender: F [employer]: asad : 1960 Requested By: DANNA CEE Order Number: [id number] Reading MD: Cj Tyler Measurements Intervals [place] Rate: 94 P: 49 PA: 148 QRS: 19 QRSD: 85 T: 39 QT: 376 QTc: 471 Interpretive Statements Sinus rhythm Baseline wander in lead(s) V6 Electronically Signed On 02-13-2025 18:41:25 PDT by Cj Tyler Please click the below link to view image of tracing.
--- NOTE | 2025-02-11 08:20 | DVH ---
EXAM: XY PELVIS AP CLINICAL INDICATION: degen TECHNIQUE: XY PELVIS AP Comparison: None FINDINGS/IMPRESSION: There is no evidence of acute fracture or dislocation. Severe bilateral hip osteoarthritis. The alignment is anatomical. There is no radiopaque foreign body.
[2025-02-11 08:40] LABS: Nucleated Red Blood Cells % 0.1 %
[2025-02-11 08:42] LABS: Hematocrit 36.4 % (36.0-46.0); Hemoglobin 12.7 g/dL (12.2-16.2); Mean Corpuscular Hemoglobin 32.0 pg (28.0-32.0); Mean Corpuscular Volume 91.7 fL (80.0-100.0)
[2025-02-11 08:44] LABS: Potassium 4.3 mmol/L (3.5-5.1); Sodium 142 mmol/L (136-145)
[2025-02-11 08:45] LABS: Anion Gap 9 (5-15); Carbon Dioxide 26 mmol/L (20-31)
[2025-02-11] MEDS: MORPHINE SULFATE 4 MG/ML SYR/VIAL IV ONE (08:45)
[2025-02-11 08:46] LABS: Calcium 10.2 mg/dL (8.7-10.4)
[2025-02-11 08:47] LABS: Chloride 107 mmol/L (98-107)
[2025-02-11] MEDS: SODIUM CHLORIDE 0.9% 1,000 ML IV ONE (08:50)
[2025-02-11 08:51] LABS: BUN/Creatinine Ratio 12.7 (10.0-20.0); Blood Urea Nitrogen 17 mg/dL (9-23)
[2025-02-11] MEDS: ONDANSETRON HCL 4 MG/2 ML VIAL IV ONE (08:51)
[2025-02-11 08:54] LABS: Glucose 125 mg/dL (74-106)
[2025-02-11] MEDS: HYDROcodone-ACET 10/325MG TAB PO ONE (08:59)
[2025-02-11] MEDS ORDERED: NITROGLYCERIN 0.4 MG SL TAB SL PRN (11:30)
[2025-02-11] MEDS ORDERED: DOCUSATE SOD 100 MG CAP PO PRN (11:30)
[2025-02-11] MEDS ORDERED: MORPHINE SULFATE INJ 2 MG/ml SYRG IV PRN (11:30)
[2025-02-11] MEDS ORDERED: LOSA-534 PO (11:34)
[2025-02-11] MEDS ORDERED: MET25T PO (11:34)
[2025-02-11] MEDS ORDERED: DEXTROSE (50%) 50ML SYRG IV PRN (12:00)
--- NOTE | 2025-02-11 12:00 | DVHHP2 ---
History of Present Illness Reason for Visit: Left hip pain History of Present Illness Merlyn Winter is a 64-year-old female with past medical history of diabetes, hypertension, hyperlipidemia, asthma, and arthritis who came to the hospital due to left hip pain. Patient has a history of osteoarthritis and has been working with her primary care provider and an orthopedic surgeon to have a hip replacement. This morning she got up, showered and got dressed when the pain in her left hip suddenly became severe making it difficult for her to stand, or walk. On assessment in the ER, her pain is severe even while laying in bed. She states it has not been this bad before. Cardiovascular: HTN, hyperipidemia Pulmonary: Asthma Musculoskeletal: Osteoarthritis Endocrine: Diabetes Past Surgical History: (x 1), Other (left carotid stent), Tubal Ligation Family History: None Smoke: No ALCOHOL: none Drugs: None Lives: with Family Domestic Violence: Neg Review of Systems Constitutional: No: Fever, Chills, Sweats, Weakness, Malaise, Other Eyes: No: Pain, Vision change, Conjunctivae inflammation, Eyelid inflammation, Other, Redness ENT: No: Ear pain, Ear discharge, Nose pain, Nose discharge, Nose congestion, Mouth pain, Mouth swelling, Throat pain, Throat swelling, Other Respiratory: No: Cough, Dry, Shortness of breath, SOB with excertion, Wheezing, Hemoptysis, Pleuritic Pain, Sputum, Wheezing, Other Cardiovascular: No: Chest Pain, Palpitations, Orthopnea, Paroxysmal Noc. Dyspnea, Edema, Lt Headedness, Other Gastrointestinal: No: Nausea, Vomiting, Abdominal Pain, Diarrhea, Constipation, Melena, Hematochezia, Other Genitourinary: No Dysuria, No Frequency, No Incontinence, No Hematuria, No Retention, No Other Musculoskeletal: leg pain (left hip); No: other, neck pain, shoulder pain, arm pain, back pain, hand pain, foot pain Skin: No: Rash, Lesions, Jaundice, Bruising, Other Neurological: No: Weakness, Numbness, Incoordination, Change in speech, Confusion, Seizures, Other Allergies: Coded Allergies: Lisinopril (Verified Allergy, Severe, 02/11/25) Clonidine (Verified Allergy, Intermediate, 06/29/19) Morphine (Verified Allergy, Mild, 06/29/19) Patient reports dizziness and tolerates [place] 10/325 well at home. Pregabalin (Verified Allergy, Unknown, 06/29/19) Sulfa Antibiotics (Verified Allergy, Unknown, 10/14/20) Nitroglycerin (Unverified Adverse Reaction, Intermediate, syncope, 10/03/23) Medications Current Medications Medications Dose Ordered Sig/Meryl Route Start Time Stop Time Status Last Admin Dose Admin Acetaminophen/ Hydrocodone Bitart 1 tab Q4HP PRN PO 02/11/25 11:30 UNV Ondansetron HCl 4 mg Q4HP PRN IV 02/11/25 11:30 UNV Docusate Sodium 100 mg BIDPRN PRN PO 02/11/25 11:30 UNV Acetaminophen 650 mg Q6HP PRN PO 02/11/25 11:30 UNV Nitroglycerin 0.4 mg Q5MINP PRN SL 02/11/25 11:30 UNV Morphine Sulfate 2 mg Q30M PRN IV 02/11/25 11:30 UNV Aspirin 81 mg DAILY PO 02/12/25 10:00 UNV Atorvastatin Calcium 20 mg DAILY PO 02/12/25 10:00 UNV Clopidogrel Bisulfate 75 mg DAILY PO 02/12/25 10:00 UNV EZETIMIBE 10 mg DAILY PO 02/12/25 10:00 UNV Acetaminophen/ Hydrocodone Bitart 1 tab QID PO 02/11/25 12:00 UNV Insulin Glargine 40 units QAM SC 02/12/25 07:00 UNV Sennosides 17.2 mg HS PO 02/11/25 22:00 UNV Patient Own Medication 10 mg DAILY PO 02/12/25 10:00 UNV Patient Own Medication 145 mg DAILY OR 02/12/25 10:00 UNV Patient Own Medication 1 tab DAILY PO 02/12/25 10:00 UNV Losartan Potassium 50 mg DAILY PO 02/12/25 10:00 UNV Metoprolol Tartrate 25 mg BID PO 02/11/25 22:00 UNV Exam Vital Signs Vital Signs Date Time Temp Pulse Resp B/P (MAP) Pulse Ox O2 Delivery O2 Flow Rate FiO2 02/11/25 09:42 163/89 02/11/25 09:00 98.0 88 15 97 98.0 General Appearance: Alert, Oriented X3, Cooperative, moderate distress HEENT: Atraumatic, PERRLA Respiratory: Clear to auscultation, Normal air movement Cardiovascular: Regular rate, Normal S1, Normal S2, No murmurs Abdominal: Normal bowel sounds, No tenderness, No hepatospenomegaly Extremities: No clubbing, No cyanosis, No edema, Normal pulses Skin: No rashes, No breakdown, No significant lesion Neuro: Normal speech, Strength at 5/5 X4 ext, Other (difficulty standing due to left hip pain) Psych/Mental Status: Mental status NL, Mood NL Labs/Xrays Labs Test 02/11/25 08:20 Range/Units White Blood Count 6.0 4.4-10.8 10^3/uL Red Blood Count 3.97 L 4.0-5.20 10^6/uL Hemoglobin 12.7 12.2-16.2 g/dL Hematocrit 36.4 36.0-46.0 % Mean Corpuscular Volume 91.7 80.0-100.0 fL Mean Corpuscular Hemoglobin 32.0 28.0-32.0 pg Mean Corpuscular Hemoglobin Concent 34.9 32.0-36.0 g/dL Red Cell Distribution Width 13.4 11.8-14.3 % Platelet Count 628 H 140-450 10^3/uL Mean Platelet Volume 7.0 6.9-10.8 fL Neutrophils (%) (Auto) 64.8 37.0-80.0 % Lymphocytes (%) (Auto) 25.7 10.0-50.0 % Monocytes (%) (Auto) 7.2 0.0-12.0 % Eosinophils (%) (Auto) 1.6 0.0-7.0 % Basophils (%) (Auto) 0.7 0.0-2.0 % Neutrophils # (Auto) 3.9 1.6-8.6 10 ^3/uL Lymphocytes # (Auto) 1.5 0.4-5.4 10 ^3/uL Monocytes # (Auto) 0.4 0-1.3 10 ^3/uL Eosinophils # (Auto) 0.1 0-0.8 10 ^3/uL Basophils # (Auto) 0 0-0.2 10 ^3/uL Nucleated Red Blood Cells 0.1 % Sodium Level 142 136-145 mmol/L Potassium Level 4.3 3.5-5.1 mmol/L Chloride Level 107 98-107 mmol/L Carbon Dioxide Level 26 20-31 mmol/L Anion Gap 9 5-15 Blood Urea Nitrogen 17 9-23 mg/dL Creatinine 1.34 H 0.550-1.02 mg/dL Glomerular Filtration Rate Calc 44 >90 mL/min BUN/Creatinine Ratio 12.7 10.0-20.0 Serum Glucose 125 H 74-106 mg/dL Calcium Level 10.2 8.7-10.4 mg/dL Troponin I High Sensitivity 7 </=34 ng/L EXAM: XY PELVIS AP FINDINGS/IMPRESSION: There is no evidence of acute fracture or dislocation. Severe bilateral hip osteoarthritis. The alignment is anatomical. There is no radiopaque foreign body. SEPSIS Sepsis Screen Date sepsis recognized/suspect: Feb 11, 2025 Time Sepsis recognized/suspect: 744 Recent Procedure: No On Antibiotic Therapy: No Respiratory Rate >20: Yes Heart Rate >90: Yes Temp<36 C (96.8 F) or >38.3 C: No SBP <90 or MAP <65 mmHG: No New Acute Mental Status Change: No Is the patient on CPAP, BIPAP,: No Physician Orders Urinalysis (02/11/25 07:48) Sodium Chloride 0.9% (02/11/25 08:00) Pelvis Ap (02/11/25 07:48) Admit (02/11/25 11:26) Code Status (02/11/25 11:26) 2 Gm Sodium Diet (02/11/25 Lunch) Hydrocodone-Acet 5/325mg Tab ([place] 5/32 (02/11/25 11:30) Ondansetron Hcl (Zofran) (02/11/25 11:30) Docusate Sodium Capsule (Colace Capsule) (02/11/25 11:30) Fall Risk Precautions In Place QSHIFT (02/11/25 11:26) Complete Blood Count (02/12/25 04:00) Comprehensive Metabolic Panel (02/12/25 04:00) Condition: Serious (02/11/25 11:26) Acetaminophen Tablet (Tylenol Tablet) (02/11/25 11:30) Nitroglycerin Sublingual (Ntrostat Subli (02/11/25 11:30) Morphine Sulfate Injection (02/11/25 11:30) Stat Ekg For Chest Pain (02/11/25 11:26) Notify Md Of Changes From Base (02/11/25 11:26) Front End Software Engineer For 24 Hours (02/11/25 11:26) Emergency Dysrhythmia Protocol (02/11/25 11:26) Rhythm Strips Once Every Shift (02/11/25 11:26) Oxygen By Nasal Cannula (02/11/25 11:26) Ct L Hip With Out Contrast (02/11/25 11:26) Aspirin Enteric Coated Tablet (Ecotrin E (02/12/25 10:00) Atorvastatin (Lipitor) (02/12/25 10:00) Clopidogrel Bisulfate (Plavix) (02/12/25 10:00) Ezetimibe (Zetia) (02/12/25 10:00) Hydrocodone-Acet 10/325mg Tab ([place] 10/ (02/11/25 12:00) Insulin Lantus (Glargine) (Lantus) (02/12/25 07:00) Senna Pod Tablet (Senokot Tablet) (02/11/25 22:00) (Nf) Dapagliflozin Propanediol (Farxiga) (02/12/25 10:00) (Nf) Fenofibrate (02/12/25 10:00) (Nf) Nifedipine (Nifedipine Er) (02/12/25 10:00) Nifedipine Er (Procardia Xl (Time-Releas (02/11/25 11:45) Losartan Tablet (Cozaar Tablet) (02/11/25 11:45) Metoprolol Tartrate Tablet (Lopressor Ta (02/11/25 11:45) Losartan Tablet (Cozaar Tablet) (02/12/25 10:00) Metoprolol Tartrate Tablet (Lopressor Ta (02/11/25 22:00) Vital Signs Date Time Temp Pulse Resp B/P (MAP) Pulse Ox O2 Delivery O2 Flow Rate FiO2 02/11/25 09:42 163/89 02/11/25 09:41 163/89 (113) 02/11/25 09:00 98.0 88 15 160/99 (119) 97 98.0 02/11/25 08:45 80 15 165/80 02/11/25 07:50 94 02/11/25 07:45 98.7 94 22 130/96 99 98.7 Laboratory Tests Test 02/11/25 08:20 White Blood Count 6.0 10^3/uL (4.4-10.8) Medications Medications Dose Ordered Sig/Meryl Route Start Time Stop Time Status Last Admin Dose Admin Acetaminophen/ Hydrocodone Bitart 1 tab ONCE ONCE PO 02/11/25 09:00 02/11/25 09:01 DC 02/11/25 08:59 1 TAB Ondansetron HCl 4 mg ONCE ONCE IV 02/11/25 08:00 02/11/25 08:01 DC 02/11/25 08:51 4 MG Sodium Chloride 1,000 ml @ 150 mls/hr Q6H40M ONCE IV 02/11/25 08:00 02/11/25 14:39 02/11/25 08:50 150 MLS/HR Assessment/Plan Assessment/Plan Assessment: Hypertensive urgency, Severe hip osteoarthritis, Diabetes, Hyperlipidemia, Asthma, Plan: Admit to Tele, CT of left hip, Consider orthopedic surgery consult depending on results of CT scan, Resume home PO antihypertensives, PRN antihypertensives, Accu checks Q AC&HS with sliding scale, Home medications reconciled, Plan discussed with: Patient My Orders Orders - BELKIS CURRIE Procedure Category Date Status Time Admit ADMIT 02/11/25 Transmitted 11:26 Code Status CODE 02/11/25 Transmitted 11:26 2 Gm Sodium Diet DIET 02/11/25 Transmitted Lunch Hydrocodone-Acet PHA 02/11/25 Logged 5/325mg Tab ([place] 11:30 Ondansetron Hcl PHA 02/11/25 Logged (Zofran) 11:30 Docusate Sodium PHA 02/11/25 Logged Capsule (Colace 11:30 Fall Risk Precautions LETY 02/11/[address] 11:26 Complete Blood Count LAB 02/12/25 Verified 04:00 Comprehensive LAB 02/12/25 Verified Metabolic Panel 04:00 Condition: Serious LETY 02/11/25 In Process 11:26 Acetaminophen Tablet PHA 02/11/25 Logged (Tylenol Tablet) 11:30 Nitroglycerin PHA 02/11/25 Logged Sublingual (Ntrostat 11:30 Morphine Sulfate PHA 02/11/25 Logged Injection 11:30 Stat Ekg For Chest LETY 02/11/25 In Process Pain 11:26 Notify Of Changes LETY 02/11/25 In Process From Base 11:26 Front End Software Engineer For LETY 02/11/25 In Process 24 Hours 11:26 Emergency Dysrhythmia LETY 02/11/25 In Process Protocol 11:26 Rhythm Strips Once LETY 02/11/25 In Process Every Shift 11:26 Oxygen By Nasal RT 02/11/25 Transmitted Cannula 11:26 Ct L Hip With Out CT 02/11/25 Logged Contrast 11:26 Aspirin Enteric PHA 02/12/25 Logged Coated Tablet 10:00 Atorvastatin (Lipitor) PHA 02/12/25 Logged 10:00 Clopidogrel Bisulfate PHA 02/12/25 Logged (Plavix) 10:00 Ezetimibe (Zetia) PHA 02/12/25 Logged 10:00 Hydrocodone-Acet PHA 02/11/25 Logged 10/325mg Tab ([place] 12:00 Insulin Lantus PHA 02/12/25 Logged (Glargine) (Lantus) 07:00 Senna Pod Tablet PHA 02/11/25 Logged (Senokot Tablet) 22:00 (Nf) Dapagliflozin PHA 02/12/25 Logged Propanediol (Farxiga) 10:00 (Nf) Fenofibrate PHA 02/12/25 Logged 10:00 (Nf) Nifedipine PHA 02/12/25 Logged (Nifedipine Er) 10:00 Nifedipine Er PHA 02/11/25 Logged (Procardia Xl 11:45 Losartan Tablet PHA 02/11/25 Logged (Cozaar Tablet) 11:45 Metoprolol Tartrate PHA 02/11/25 Logged Tablet (Lopressor Ta 11:45 Losartan Tablet PHA 02/12/25 Logged (Cozaar Tablet) 10:00 Metoprolol Tartrate PHA 02/11/25 Logged Tablet (Lopressor Ta 22:00 Date of Service: Feb 11, 2025 Billing Provider: BELKIS CURRIE Common Visit Codes: [id number] INP/OBS CARE (MOD) BELKIS CURRIE Feb 11, 2025 12:00
--- NOTE | 2025-02-11 12:24 | DVH ---
CLINICAL HISTORY: Pain TECHNIQUE: CT of the left lower extremity was performed without intravenous contrast. This exam was p erformed according to our departmental dose optimization program. Up-to-date CT equipment and radiati on dose reduction techniques are utilized as appropriate. 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 Subchondral sclerosis and cyst formation is present at the articular surfaces. Osteophytes along the articular margins. No fractures seen. IMPRESSION: 1. 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
[2025-02-11] MEDS: LOSARTAN POTASSIUM 50 MG TAB PO ONE (12:26)
[2025-02-11] MEDS: METOPROLOL TARTRATE 25 MG TAB PO ONE (12:26)
[2025-02-11] MEDS: HYDROcodone-ACET 10/325MG TAB PO SCH (12:30)
[2025-02-11] MEDS: InsuLIN REG 1unit/0.01ml Soln (100units/ml) SC SCH ×2 (17:00→21:05)
[2025-02-11] MEDS: ACCU-CHEK COMFORT CURVE STRIP VI SCH (17:10)
[2025-02-11 17:38] VITALS: BP 150/96; PULSE 86; RESP 18; TEMP 98.1; O2SAT 95
--- NOTE | 2025-02-11 20:54 | DVHINCON2 ---
Consult Note Consult Consult Note History of Present Illness (HPI) Ms. Zuleta is admitted for hypertensive urgency. Orthopedic consultation was requested due to patients report of chronic left hip pain. On interview today, she denies any recent injury, fall, trauma, catching, locking, or instability of the left hip. She reports a longstanding history of left hip pain that has been progressively limiting her activity. She has previously been evaluated by orthopedics per pt as outpatient and was informed that she is a candidate for total hip arthroplasty (ARSENIO). However, elective surg camryn has been deferred because of poorly controlled hypertension and diabetes, preventing her from obtaining pre-operative clearance. --- Past Medical History Hypertension (uncontrolled, admitted with hypertensive urgency) Diabetes mellitus (poorly controlled) bilateral hip osteoarthritis/pain (chronic) Medications / Allergies As per primary team list --- Physical Examination General: Awake, alert, no acute distress. Left Hip: Tenderness with range of motion, consistent with degenerative changes. ttp groin left Too painful to complete ROM or speciali test like Josy/Fadir post log roll TTP midline lumbar No deformity, swelling, or erythema. No instability appreciated. Distal neurovascular exam intact. --- Imaging X-ray/ct of the left hip reviewed: Findings consistent with advanced degenerative osteoarthritis severe with cystic changes to acetabulum and Femur head. --- Assessment Chronic left hip osteoarthritis, previously determined to be a surgical candidate. Elective total hip arthroplasty deferred until hypertension and diabetes are optimized. No acute fracture, dislocation, or instability. --- Plan 1. No acute orthopedic surgical intervention required during this admission. 2. Discussed case with Dr. Brown. 3. Pain management to be directed by hospitalist team with oral medications as appropriate. 4. Outpatient orthopedic follow-up once patients hypertension and diabetes are controlled for surgical clearance and hip replacement evaluation. 5. Physical therapy as tolerated to assist with mobility and recommend assistive device if needed. 6. Walker to help ambulate and WBAT Dr. Brady agree with above plan Plan discussed with: Patient, Other (bedside nurse) Visit Coding Surgery Date of Service if different f: Feb 11, 2025 Billing Provider: KERRY COLLINS Surgery Visit Codes: [id number] - INP CONSULT <55 MIN KERRY COLLINS Feb 11, 2025 20:54
[2025-02-11] MEDS: METOPROLOL TARTRATE 25 MG TAB PO SCH (21:01)
[2025-02-11] MEDS: SENNA 8.6 MG TAB PO SCH (21:01)
[2025-02-11 21:03] VITALS: BP 127/79; PULSE 86; RESP 18; TEMP 98.2; O2SAT 96
[2025-02-12] VITALS (8 sets, daily range): BP systolic 119–161; BP diastolic 71–99; PULSE 71–99; RESP 15–20; TEMP 97.5–98.7; O2SAT 93–99
[2025-02-12] MEDS: HYDROcodone-ACET 10/325MG TAB PO SCH (00:46)
[2025-02-12 06:32] LABS: Urine Protein, UAD 1+ (Negative)
[2025-02-12] MEDS: INSULIN LANTUS (GLARGINE) 1 /0.01ml (100units/ml) SC SCH (06:51)
[2025-02-12 07:01] LABS: Albumin 3.6 g/dL (3.2-4.8); Alkaline Phosphatase 102 U/L (46-116); Anion Gap 9 (5-15); BUN/Creatinine Ratio 18.4 (10.0-20.0); Blood Urea Nitrogen 21 mg/dL (9-23); Carbon Dioxide 24 mmol/L (20-31); Chloride 105 mmol/L (98-107); Glucose 102 mg/dL (74-106); Hemoglobin 11.4 g/dL (12.2-16.2); Mean Corpuscular Hemoglobin 23.5 pg (28.0-32.0); Potassium 4.4 mmol/L (3.5-5.1); Sodium 138 mmol/L (136-145); Total Protein 6.4 g/dL (5.7-8.2)
[2025-02-12 07:02] LABS: Bilirubin, Total 0.6 mg/dL (0.2-1.0)
[2025-02-12 07:03] LABS: Hematocrit 36.4 % (36.0-46.0); Mean Corpuscular Volume 75.3 fL (80.0-100.0); Nucleated Red Blood Cells % 0.3 %
[2025-02-12 07:21] LABS: Alanine Aminotransferase < 9 U/L (7-40)
[2025-02-12 07:22] LABS: Calcium 8.7 mg/dL (8.7-10.4)
[2025-02-12] MEDS: ASPirin-EC 81 mg tab PO SCH (09:31)
[2025-02-12] MEDS: HYDROcodone-ACET 5/325MG TAB PO PRN (09:31)
[2025-02-12] MEDS: ATORVASTATIN 20 MG TAB PO SCH (09:31)
[2025-02-12] MEDS: CLOPIDOGREL BISULFATE 75 MG TAB PO SCH (09:32)
[2025-02-12] MEDS: LOSARTAN POTASSIUM 50 MG TAB PO SCH (09:32)
[2025-02-12] MEDS: EZETIMIBE 10 MG TAB PO SCH (09:32)
[2025-02-12] MEDS ORDERED: PATIENTS OWN MEDICATION (Nifedipine (Nifedipine Er) 1 TAB) PO SCH (10:00)
[2025-02-12] MEDS: ONDANSETRON HCL 4 MG/2 ML VIAL IV PRN (11:52)
--- NOTE | 2025-02-12 12:32 | DVHPN2 ---
Changes from previous H/P or p: No Changes Eyes: No Pain, No Vision change, No Conjunctivae inflammation, No Eyelid inflammation, No Other, No Redness ENT: No Ear pain, No Ear discharge, No Nose pain, No Nose discharge, No Nose congestion, No Mouth pain, No Mouth swelling, No Throat pain, No Throat swelling, No Other Cardiovascular: No Chest Pain, No Palpitations, No Orthopnea, No Paroxysmal Noc. Dyspnea, No Edema, No Lt Headedness, No Other Respiratory: No Cough, No Dry, No Shortness of breath, No SOB with excertion, No Wheezing, No Hemoptysis, No Pleuritic Pain, No Sputum, No Other Gastrointestinal: No Nausea, No Vomiting, No Abdominal Pain, No Diarrhea, No Constipation, No Melena, No Hematochezia, No Other Genitourinary: No Dysuria, No Frequency, No Incontinence, No Hematuria, No Retention, No Other Musculoskeletal: No other, No neck pain, No shoulder pain, No arm pain, No back pain, No hand pain; leg pain (left hip); No foot pain Skin: No Rash, No Lesions, No Jaundice, No Bruising, No Other Objective Vitals Vital Signs Date Time Temp Pulse Resp B/P (MAP) Pulse Ox O2 Delivery O2 Flow Rate FiO2 02/12/25 09:32 161/99 02/12/25 09:31 80 02/12/25 09:00 97.5 18 98 97.5 02/12/25 08:00 Room Air* 0 21 Intake/Output Intake and Output 02/12/25 07:00 Intake Total 1230 ml Balance 1230 ml Intake Oral 480 ml IV Total 750 ml Medications Current Medications Medications Dose Ordered Sig/Meryl Route Start Time Stop Time Status Last Admin Dose Admin Acetaminophen/ Hydrocodone Bitart 1 tab Q4HP PRN PO 02/11/25 11:30 02/12/25 09:31 1 TAB Ondansetron HCl 4 mg Q4HP PRN IV 02/11/25 11:30 02/12/25 11:52 4 MG Docusate Sodium 100 mg BIDPRN PRN PO 02/11/25 11:30 Acetaminophen 650 mg Q6HP PRN PO 02/11/25 11:30 Nitroglycerin 0.4 mg Q5MINP PRN SL 02/11/25 11:30 Morphine Sulfate 2 mg Q30M PRN IV 02/11/25 11:30 Aspirin 81 mg DAILY PO 02/12/25 10:00 02/12/25 09:31 81 MG Atorvastatin Calcium 20 mg DAILY PO 02/12/25 10:00 02/12/25 09:31 20 MG Clopidogrel Bisulfate 75 mg DAILY PO 02/12/25 10:00 02/12/25 09:32 75 MG EZETIMIBE 10 mg DAILY PO 02/12/25 10:00 02/12/25 09:32 10 MG Insulin Glargine 40 units QAM SC 02/12/25 07:00 Sennosides 17.2 mg HS PO 02/11/25 22:00 02/11/25 21:01 17.2 MG Patient Own Medication 10 mg DAILY PO 02/12/25 10:00 Patient Own Medication 145 mg DAILY PO 02/12/25 10:00 Patient Own Medication 1 tab DAILY PO 02/12/25 10:00 UNV Losartan Potassium 50 mg DAILY PO 02/12/25 10:00 02/12/25 09:32 50 MG Metoprolol Tartrate 25 mg BID PO 02/11/25 22:00 02/12/25 09:31 25 MG Diagnostic Test (Pha) 1 strip ACHS 02/11/25 17:00 02/12/25 11:52 1 STRIP Insulin Human Regular HS SC 02/11/25 22:00 02/11/25 21:05 2 UNITS Insulin Human Regular AC SC 02/11/25 17:00 02/12/25 11:53 2 UNITS Dextrose 50 ml UD PRN IV 02/11/25 12:00 Nifedipine 90 mg DAILY PO 02/12/25 10:00 02/12/25 09:32 90 MG Hydralazine HCl 10 mg Q6HP PRN PO 02/11/25 14:00 Cancel Hydralazine HCl 10 mg Q6HP PRN IV 02/11/25 14:45 Acetaminophen/ Hydrocodone Bitart 1 tab QID@0100,0700,1300,1900 PO 02/12/25 01:00 02/12/25 00:46 1 TAB Laboratory Results Laboratory Tests 02/12/25 06:00 Chemistry Test 02/12/25 06:00 Albumin 3.6 g/dL (3.2-4.8) Calcium Level 8.7 mg/dL (8.7-10.4) Total Protein 6.4 g/dL (5.7-8.2) LFT Test 02/12/25 06:00 Alanine Aminotransferase (ALT) < 9 U/L (7-40) Alkaline Phosphatase 102 U/L (46-116) Aspartate Amino Transferase (AST) 13 U/L (13-40) Total Bilirubin 0.6 mg/dL (0.2-1.0) Urinalysis Test 02/11/25 06:00 Urine Color Light-yellow (Yellow) Urine Clarity Clear (Clear) Urine pH 5.5 (5.0-9.0) Urine Specific [place] 1.016 (1.001-1.035) Urine Protein 1+ (Negative) H Urine Ketones Negative (Negative) Urine Blood 1+ /uL (Negative) H Urine Nitrite Negative (Negative) Urine Bilirubin Negative (Negative) Urine Urobilinogen Normal mg/dL (Negative) Urine Leukocyte Esterase 2+ /uL (Negative) Urine RBC 31 /hpf (0 - 4) Urine Microscopic WBC 4 /HPF (0-5) Urine Squamous Epithelial Cells Few /hpf (<5) Urine Bacteria None seen /hpf (None Seen) Urine Mucus Few (None Seen) Urine Glucose Normal mg/dL (Normal) Labs and/or images reviewed: Labs reviewed by me, Image(s) reviewed by me Assessment/Plan Assessment/Plan #1 acute diverticulitis: iv antibiotics #2 dm: ssi #3 htn #4 acute renal failure ?vasomotor nephropathy: ivf #5 h/o sigmoid stricture #6 arthritis #7 hyperlipidemia Plan discussed with: Patient GENESIS HERNANDEZ MD Feb 12, 2025 12:32
--- NOTE | 2025-02-12 12:52 | DVHPN2 ---
Reviewed: Care Plan, H&P, Labs, Medications, Previous Orders, Radiology Changes from previous H/P or p: No Changes Eyes: No Pain, No Vision change, No Conjunctivae inflammation, No Eyelid inflammation, No Other, No Redness ENT: No Ear pain, No Ear discharge, No Nose pain, No Nose discharge, No Nose congestion, No Mouth pain, No Mouth swelling, No Throat pain, No Throat swelling, No Other Cardiovascular: No Chest Pain, No Palpitations, No Orthopnea, No Paroxysmal Noc. Dyspnea, No Edema, No Lt Headedness, No Other Respiratory: No Cough, No Dry, No Shortness of breath, No SOB with excertion, No Wheezing, No Hemoptysis, No Pleuritic Pain, No Sputum, No Other Gastrointestinal: No Nausea, No Vomiting, No Abdominal Pain, No Diarrhea, No Constipation, No Melena, No Hematochezia, No Other Genitourinary: No Dysuria, No Frequency, No Incontinence, No Hematuria, No Retention, No Other Musculoskeletal: No other, No neck pain, No shoulder pain, No arm pain, No back pain, No hand pain; leg pain (left hip); No foot pain Skin: No Rash, No Lesions, No Jaundice, No Bruising, No Other Objective Vitals Vital Signs Date Time Temp Pulse Resp B/P (MAP) Pulse Ox O2 Delivery O2 Flow Rate FiO2 02/12/25 09:32 161/99 02/12/25 09:31 80 02/12/25 09:00 97.5 18 98 97.5 02/12/25 08:00 Room Air* 0 21 Intake/Output Intake and Output 02/12/25 07:00 Intake Total 1230 ml Balance 1230 ml Intake Oral 480 ml IV Total 750 ml Medications Current Medications Medications Dose Ordered Sig/Meryl Route Start Time Stop Time Status Last Admin Dose Admin Acetaminophen/ Hydrocodone Bitart 1 tab Q4HP PRN PO 02/11/25 11:30 02/12/25 09:31 1 TAB Ondansetron HCl 4 mg Q4HP PRN IV 02/11/25 11:30 02/12/25 11:52 4 MG Docusate Sodium 100 mg BIDPRN PRN PO 02/11/25 11:30 Acetaminophen 650 mg Q6HP PRN PO 02/11/25 11:30 Nitroglycerin 0.4 mg Q5MINP PRN SL 02/11/25 11:30 Morphine Sulfate 2 mg Q30M PRN IV 02/11/25 11:30 Aspirin 81 mg DAILY PO 02/12/25 10:00 02/12/25 09:31 81 MG Atorvastatin Calcium 20 mg DAILY PO 02/12/25 10:00 02/12/25 09:31 20 MG Clopidogrel Bisulfate 75 mg DAILY PO 02/12/25 10:00 02/12/25 09:32 75 MG EZETIMIBE 10 mg DAILY PO 02/12/25 10:00 02/12/25 09:32 10 MG Insulin Glargine 40 units QAM SC 02/12/25 07:00 Sennosides 17.2 mg HS PO 02/11/25 22:00 02/11/25 21:01 17.2 MG Patient Own Medication 10 mg DAILY PO 02/12/25 10:00 Patient Own Medication 145 mg DAILY PO 02/12/25 10:00 Patient Own Medication 1 tab DAILY PO 02/12/25 10:00 UNV Losartan Potassium 50 mg DAILY PO 02/12/25 10:00 02/12/25 09:32 50 MG Metoprolol Tartrate 25 mg BID PO 02/11/25 22:00 02/12/25 09:31 25 MG Diagnostic Test (Pha) 1 strip ACHS 02/11/25 17:00 02/12/25 11:52 1 STRIP Insulin Human Regular HS SC 02/11/25 22:00 02/11/25 21:05 2 UNITS Insulin Human Regular AC SC 02/11/25 17:00 02/12/25 11:53 2 UNITS Dextrose 50 ml UD PRN IV 02/11/25 12:00 Nifedipine 90 mg DAILY PO 02/12/25 10:00 02/12/25 09:32 90 MG Hydralazine HCl 10 mg Q6HP PRN PO 02/11/25 14:00 Cancel Hydralazine HCl 10 mg Q6HP PRN IV 02/11/25 14:45 Acetaminophen/ Hydrocodone Bitart 1 tab QID@0100,0700,1300,1900 PO 02/12/25 01:00 02/12/25 00:46 1 TAB Laboratory Results Laboratory Tests 02/12/25 06:00 Chemistry Test 02/12/25 06:00 Albumin 3.6 g/dL (3.2-4.8) Calcium Level 8.7 mg/dL (8.7-10.4) Total Protein 6.4 g/dL (5.7-8.2) LFT Test 02/12/25 06:00 Alanine Aminotransferase (ALT) < 9 U/L (7-40) Alkaline Phosphatase 102 U/L (46-116) Aspartate Amino Transferase (AST) 13 U/L (13-40) Total Bilirubin 0.6 mg/dL (0.2-1.0) Urinalysis Test 02/11/25 06:00 Urine Color Light-yellow (Yellow) Urine Clarity Clear (Clear) Urine pH 5.5 (5.0-9.0) Urine Specific [place] 1.016 (1.001-1.035) Urine Protein 1+ (Negative) H Urine Ketones Negative (Negative) Urine Blood 1+ /uL (Negative) H Urine Nitrite Negative (Negative) Urine Bilirubin Negative (Negative) Urine Urobilinogen Normal mg/dL (Negative) Urine Leukocyte Esterase 2+ /uL (Negative) Urine RBC 31 /hpf (0 - 4) Urine Microscopic WBC 4 /HPF (0-5) Urine Squamous Epithelial Cells Few /hpf (<5) Urine Bacteria None seen /hpf (None Seen) Urine Mucus Few (None Seen) Urine Glucose Normal mg/dL (Normal) Labs and/or images reviewed: Labs reviewed by me, Image(s) reviewed by me Assessment/Plan Assessment/Plan Acute left hip pain Chronic left hip osteoarthritis; Ortho consult by Dr. Alvarez appreciated advised pain management physical therapy and outpatient elective left hip replacement once blood pressure and diabetes were controlled No acute fracture dislocation arrange stable Chronic left hip osteoarthritis, previously determined to be a surgical candidate. Uncontrolled Hypertension Uncontrolled diabetes Hypercholesterolemia Asthma GEO Chou at bedside. Plan discussed with: Patient Date of Service: Feb 12, 2025 Billing Provider: GENESIS HERNANDEZ MD Common Visit Codes: [id number] INP/OBS CARE(HIGH) GENESIS HERNANDEZ MD Feb 12, 2025 12:52
[2025-02-12] MEDS: HYDROcodone-ACET 10/325MG TAB PO PRN (20:04)
[2025-02-12] MEDS: ACETAMINOPHEN 325 MG TAB PO PRN (22:58)
[2025-02-13] VITALS (8 sets, daily range): BP systolic 126–166; BP diastolic 80–105; PULSE 71–98; RESP 17–19; TEMP 97.1–98.1; O2SAT 96–100
--- NOTE | 2025-02-13 11:17 | DVHPN2 ---
Reviewed: Care Plan, H&P, Labs, Medications, Previous Orders, Radiology Changes from previous H/P or p: No Changes Eyes: No Pain, No Vision change, No Conjunctivae inflammation, No Eyelid inflammation, No Other, No Redness ENT: No Ear pain, No Ear discharge, No Nose pain, No Nose discharge, No Nose congestion, No Mouth pain, No Mouth swelling, No Throat pain, No Throat swelling, No Other Cardiovascular: No Chest Pain, No Palpitations, No Orthopnea, No Paroxysmal Noc. Dyspnea, No Edema, No Lt Headedness, No Other Respiratory: No Cough, No Dry, No Shortness of breath, No SOB with excertion, No Wheezing, No Hemoptysis, No Pleuritic Pain, No Sputum, No Other Gastrointestinal: No Nausea, No Vomiting, No Abdominal Pain, No Diarrhea, No Constipation, No Melena, No Hematochezia, No Other Genitourinary: No Dysuria, No Frequency, No Incontinence, No Hematuria, No Retention, No Other Musculoskeletal: No other, No neck pain, No shoulder pain, No arm pain, No back pain, No hand pain; leg pain (left hip); No foot pain Skin: No Rash, No Lesions, No Jaundice, No Bruising, No Other Objective Vitals Vital Signs Date Time Temp Pulse Resp B/P (MAP) Pulse Ox O2 Delivery O2 Flow Rate FiO2 02/13/25 09:44 78 152/98 02/13/25 09:00 97.1 19 100 97.1 02/13/25 08:00 Room Air* 0 21 Intake/Output Intake and Output 02/13/25 07:00 Intake Total 900 ml Output Total 2530 ml Balance -1630 ml Intake Oral 900 ml Output Urine Total 2530 ml Medications Current Medications Medications Dose Ordered Sig/Meryl Route Start Time Stop Time Status Last Admin Dose Admin Ondansetron HCl 4 mg Q4HP PRN IV 02/11/25 11:30 02/12/25 11:52 4 MG Docusate Sodium 100 mg BIDPRN PRN PO 02/11/25 11:30 Acetaminophen 650 mg Q6HP PRN PO 02/11/25 11:30 02/12/25 22:58 650 MG Nitroglycerin 0.4 mg Q5MINP PRN SL 02/11/25 11:30 Morphine Sulfate 2 mg Q30M PRN IV 02/11/25 11:30 Aspirin 81 mg DAILY PO 02/12/25 10:00 02/13/25 09:44 81 MG Atorvastatin Calcium 20 mg DAILY PO 02/12/25 10:00 02/13/25 09:44 20 MG Clopidogrel Bisulfate 75 mg DAILY PO 02/12/25 10:00 02/13/25 09:44 75 MG EZETIMIBE 10 mg DAILY PO 02/12/25 10:00 02/13/25 09:45 10 MG Insulin Glargine 40 units QAM SC 02/12/25 07:00 Sennosides 17.2 mg HS PO 02/11/25 22:00 02/12/25 21:08 17.2 MG Patient Own Medication 10 mg DAILY PO 02/12/25 10:00 Patient Own Medication 145 mg DAILY PO 02/12/25 10:00 Patient Own Medication 1 tab DAILY PO 02/12/25 10:00 UNV Losartan Potassium 50 mg DAILY PO 02/12/25 10:00 02/13/25 09:44 50 MG Metoprolol Tartrate 25 mg BID PO 02/11/25 22:00 02/13/25 09:44 25 MG Diagnostic Test (Pha) 1 strip ACHS 02/11/25 17:00 02/13/25 06:54 1 STRIP Insulin Human Regular HS SC 02/11/25 22:00 02/12/25 21:12 4 UNITS Insulin Human Regular AC SC 02/11/25 17:00 02/12/25 11:53 2 UNITS Dextrose 50 ml UD PRN IV 02/11/25 12:00 Nifedipine 90 mg DAILY PO 02/12/25 10:00 02/13/25 09:43 90 MG Hydralazine HCl 10 mg Q6HP PRN PO 02/11/25 14:00 Cancel Hydralazine HCl 10 mg Q6HP PRN IV 02/11/25 14:45 Acetaminophen/ Hydrocodone Bitart 1 tab Q4HP PRN PO 02/12/25 14:00 02/13/25 09:45 1 TAB Laboratory Results Laboratory Tests 02/12/25 06:00 Urinalysis Test 02/11/25 06:00 Urine Color Light-yellow (Yellow) Urine Clarity Clear (Clear) Urine pH 5.5 (5.0-9.0) Urine Specific [place] 1.016 (1.001-1.035) Urine Protein 1+ (Negative) H Urine Ketones Negative (Negative) Urine Blood 1+ /uL (Negative) H Urine Nitrite Negative (Negative) Urine Bilirubin Negative (Negative) Urine Urobilinogen Normal mg/dL (Negative) Urine Leukocyte Esterase 2+ /uL (Negative) Urine RBC 31 /hpf (0 - 4) Urine Microscopic WBC 4 /HPF (0-5) Urine Squamous Epithelial Cells Few /hpf (<5) Urine Bacteria None seen /hpf (None Seen) Urine Mucus Few (None Seen) Urine Glucose Normal mg/dL (Normal) Assessment/Plan Assessment/Plan Acute left hip pain Chronic left hip osteoarthritis; Ortho consult by Dr. Alvarez appreciated advised pain management physical therapy and outpatient elective left hip replacement once blood pressure and diabetes were controlled No acute fracture dislocation arrange stable Chronic left hip osteoarthritis, previously determined to be a surgical candidate. Uncontrolled Hypertension Uncontrolled diabetes Hypercholesterolemia Asthma RN José Antonio at bedside. Patient lives with her granddaughter who is her caregiver. Plan discussed with: Patient My Orders Orders - GENESIS HERNANDEZ MD Procedure Category Date Status Time Pt Request For Service PT 02/12/25 Logged 13:47 Hydrocodone-Acet PHA 02/12/25 In Process 10/325mg Tab ([place] 14:00 Date of Service: Feb 13, 2025 Billing Provider: GENESIS HERNANDEZ MD Common Visit Codes: [id number] INP/OBS CARE(HIGH) GENESIS HERNANDEZ MD Feb 13, 2025 11:17
[2025-02-13] MEDS: hydrALAZINE HCL 20 MG/ML VL IV PRN (11:50)
[2025-02-14 01:00] VITALS: BP 130/86; PULSE 82; RESP 17; TEMP 98.1; O2SAT 97
[2025-02-14 05:00] VITALS: BP 139/97; PULSE 75; RESP 18; TEMP 97.3; O2SAT 97
[2025-02-14 08:00] VITALS: PULSE 72
[2025-02-14 09:00] VITALS: BP 141/85; PULSE 81; RESP 18; TEMP 97.8; O2SAT 99
--- NOTE | 2025-02-14 12:53 | DVHPN2 ---
Reviewed: Care Plan, H&P, Labs, Medications, Previous Orders, Radiology Changes from previous H/P or p: No Changes Eyes: No Pain, No Vision change, No Conjunctivae inflammation, No Eyelid inflammation, No Other, No Redness ENT: No Ear pain, No Ear discharge, No Nose pain, No Nose discharge, No Nose congestion, No Mouth pain, No Mouth swelling, No Throat pain, No Throat swelling, No Other Cardiovascular: No Chest Pain, No Palpitations, No Orthopnea, No Paroxysmal Noc. Dyspnea, No Edema, No Lt Headedness, No Other Respiratory: No Cough, No Dry, No Shortness of breath, No SOB with excertion, No Wheezing, No Hemoptysis, No Pleuritic Pain, No Sputum, No Other Gastrointestinal: No Nausea, No Vomiting, No Abdominal Pain, No Diarrhea, No Constipation, No Melena, No Hematochezia, No Other Genitourinary: No Dysuria, No Frequency, No Incontinence, No Hematuria, No Retention, No Other Musculoskeletal: No other, No neck pain, No shoulder pain, No arm pain, No back pain, No hand pain; leg pain (left hip); No foot pain Skin: No Rash, No Lesions, No Jaundice, No Bruising, No Other Objective Vitals Vital Signs Date Time Temp Pulse Resp B/P (MAP) Pulse Ox O2 Delivery O2 Flow Rate FiO2 02/14/25 11:58 78 02/14/25 10:59 141/85 02/14/25 09:00 97.8 18 99 97.8 02/14/25 07:55 Room Air* 0 21 Intake/Output Intake and Output 02/14/25 07:00 Intake Total 1120 ml Output Total 1200 ml Balance -80 ml Intake Oral 1120 ml Output Urine Total 1200 ml Medications Current Medications Medications Dose Ordered Sig/Meryl Route Start Time Stop Time Status Last Admin Dose Admin Ondansetron HCl 4 mg Q4HP PRN IV 02/11/25 11:30 02/12/25 11:52 4 MG Docusate Sodium 100 mg BIDPRN PRN PO 02/11/25 11:30 Acetaminophen 650 mg Q6HP PRN PO 02/11/25 11:30 02/12/25 22:58 650 MG Nitroglycerin 0.4 mg Q5MINP PRN SL 02/11/25 11:30 Morphine Sulfate 2 mg Q30M PRN IV 02/11/25 11:30 Aspirin 81 mg DAILY PO 02/12/25 10:00 02/14/25 10:59 81 MG Atorvastatin Calcium 20 mg DAILY PO 02/12/25 10:00 02/14/25 10:58 20 MG Clopidogrel Bisulfate 75 mg DAILY PO 02/12/25 10:00 02/14/25 10:58 75 MG EZETIMIBE 10 mg DAILY PO 02/12/25 10:00 02/14/25 10:58 10 MG Insulin Glargine 40 units QAM SC 02/12/25 07:00 Sennosides 17.2 mg HS PO 02/11/25 22:00 02/13/25 21:35 17.2 MG Patient Own Medication 10 mg DAILY PO 02/12/25 10:00 Patient Own Medication 145 mg DAILY PO 02/12/25 10:00 Patient Own Medication 1 tab DAILY PO 02/12/25 10:00 UNV Losartan Potassium 50 mg DAILY PO 02/12/25 10:00 02/14/25 10:59 50 MG Metoprolol Tartrate 25 mg BID PO 02/11/25 22:00 02/14/25 10:58 25 MG Diagnostic Test (Pha) 1 strip ACHS 02/11/25 17:00 02/14/25 11:58 1 STRIP Insulin Human Regular HS SC 02/11/25 22:00 02/12/25 21:12 4 UNITS Insulin Human Regular AC SC 02/11/25 17:00 02/13/25 17:16 6 UNITS Dextrose 50 ml UD PRN IV 02/11/25 12:00 Nifedipine 90 mg DAILY PO 02/12/25 10:00 02/14/25 10:57 90 MG Hydralazine HCl 10 mg Q6HP PRN PO 02/11/25 14:00 Cancel Hydralazine HCl 10 mg Q6HP PRN IV 02/11/25 14:45 02/13/25 11:50 10 MG Acetaminophen/ Hydrocodone Bitart 1 tab Q4HP PRN PO 02/12/25 14:00 02/13/25 23:11 1 TAB Laboratory Results Laboratory Tests 02/12/25 06:00 Urinalysis Test 02/11/25 06:00 Urine Color Light-yellow (Yellow) Urine Clarity Clear (Clear) Urine pH 5.5 (5.0-9.0) Urine Specific [place] 1.016 (1.001-1.035) Urine Protein 1+ (Negative) H Urine Ketones Negative (Negative) Urine Blood 1+ /uL (Negative) H Urine Nitrite Negative (Negative) Urine Bilirubin Negative (Negative) Urine Urobilinogen Normal mg/dL (Negative) Urine Leukocyte Esterase 2+ /uL (Negative) Urine RBC 31 /hpf (0 - 4) Urine Microscopic WBC 4 /HPF (0-5) Urine Squamous Epithelial Cells Few /hpf (<5) Urine Bacteria None seen /hpf (None Seen) Urine Mucus Few (None Seen) Urine Glucose Normal mg/dL (Normal) Labs and/or images reviewed: Labs reviewed by me, Image(s) reviewed by me Assessment/Plan Assessment/Plan Acute left hip pain Chronic left hip osteoarthritis; Ortho consult by Dr. Alvarez appreciated advised pain management physical therapy and outpatient elective left hip replacement once blood pressure and diabetes were controlled No acute fracture dislocation arrange stable Chronic left hip osteoarthritis, previously determined to be a surgical candidate. Uncontrolled Hypertension Uncontrolled diabetes Hypercholesterolemia Asthma GEO Chou at bedside. Patient lives with her granddaughter who is her caregiver. Plan discussed with: Patient Date of Service: Feb 14, 2025 Billing Provider: GENESIS HERNANDEZ MD Common Visit Codes: [id number] INP/OBS CARE(HIGH) GENESIS HERNANDEZ MD Feb 14, 2025 12:53
--- NOTE | 2025-02-14 12:57 | DVHDS2 ---
Discharge Summary Date of Admission Feb 11, 2025 at 11:26 Date of Discharge: Feb 14, 2025 Admitting Diagnosis Left hip pain Wounds: None Labs/Diagnostic Data: Laboratory Results Test 02/14/25 11:40 02/12/25 06:00 02/11/25 08:20 02/11/25 06:00 POC Glucose 118 mg/dl (70-106) White Blood Count 4.2 10^3/uL (4.4-10.8) Red Blood Count 4.84 10^6/uL (4.0-5.20) Hemoglobin 11.4 g/dL (12.2-16.2) Hematocrit 36.4 % (36.0-46.0) Mean Corpuscular Volume 75.3 fL (80.0-100.0) Mean Corpuscular Hemoglobin 23.5 pg (28.0-32.0) Mean Corpuscular Hemoglobin Concent 31.2 g/dL (32.0-36.0) Red Cell Distribution Width 21.3 % (11.8-14.3) Platelet Count 295 10^3/uL (140-450) Mean Platelet Volume 8.2 fL (6.9-10.8) Neutrophils (%) (Auto) 64.5 % (37.0-80.0) Lymphocytes (%) (Auto) 15.8 % (10.0-50.0) Monocytes (%) (Auto) 16.4 % (0.0-12.0) Eosinophils (%) (Auto) 1.7 % (0.0-7.0) Basophils (%) (Auto) 1.6 % (0.0-2.0) Neutrophils # (Auto) 2.7 10 ^3/uL (1.6-8.6) Lymphocytes # (Auto) 0.7 10 ^3/uL (0.4-5.4) Monocytes # (Auto) 0.7 10 ^3/uL (0-1.3) Eosinophils # (Auto) 0.1 10 ^3/uL (0-0.8) Basophils # (Auto) 0.1 10 ^3/uL (0-0.2) Nucleated Red Blood Cells 0.3 % Sodium Level 138 mmol/L (136-145) Potassium Level 4.4 mmol/L (3.5-5.1) Chloride Level 105 mmol/L (98-107) Carbon Dioxide Level 24 mmol/L (20-31) Anion Gap 9 (5-15) Blood Urea Nitrogen 21 mg/dL (9-23) Creatinine 1.14 mg/dL (0.550-1.02) Glomerular Filtration Rate Calc 53 mL/min (>90) BUN/Creatinine Ratio 18.4 (10.0-20.0) Serum Glucose 102 mg/dL (74-106) Calcium Level 8.7 mg/dL (8.7-10.4) Total Bilirubin 0.6 mg/dL (0.2-1.0) Aspartate Amino Transferase (AST) 13 U/L (13-40) Alanine Aminotransferase (ALT) < 9 U/L (7-40) Alkaline Phosphatase 102 U/L (46-116) Total Protein 6.4 g/dL (5.7-8.2) Albumin 3.6 g/dL (3.2-4.8) Troponin I High Sensitivity 7 ng/L (</=34) Urine Color Light-yellow (Yellow) Urine Clarity Clear (Clear) Urine pH 5.5 (5.0-9.0) Urine Specific [place] 1.016 (1.001-1.035) Urine Protein 1+ (Negative) Urine Ketones Negative (Negative) Urine Blood 1+ /uL (Negative) Urine Nitrite Negative (Negative) Urine Bilirubin Negative (Negative) Urine Urobilinogen Normal mg/dL (Negative) Urine Leukocyte Esterase 2+ /uL (Negative) Urine RBC 31 /hpf (0 - 4) Urine Microscopic WBC 4 /HPF (0-5) Urine Squamous Epithelial Cells Few /hpf (<5) Urine Bacteria None seen /hpf (None Seen) Urine Mucus Few (None Seen) Urine Glucose Normal mg/dL (Normal) Other Laboratory Tests 02/12/25 06:00 Brief Hx & Hospital Course: 64-year-old female with a chronic left hip pain hypotension hypercholesterolemia diabetes asthma came in with a increasing pain in the left hip CT showed severe osteoarthritis of the left hip seen by orthopedic . Advised pain management and physical therapy and outpatient follow up for elective hip replacement after optimal control of blood pressure and diabetes. The patient goes to pain management Dr for of her pain meds. Patient requesting to be discharged home today. GEO rivera. She was advised to follow up with the orthopedic Dr. Consults/Reason for consult Orthopedic Operations or Procedures CT left hip Condition at Discharge: Fair Final Diagnosis/Problems List Acute left hip pain Chronic left hip osteoarthritis; Ortho consult by Dr. Antonio ruiz advised pain management physical therapy and outpatient elective left hip replacement once blood pressure and diabetes were controlled No acute fracture dislocation arrange stable Chronic left hip osteoarthritis, previously determined to be a surgical candidate. Uncontrolled Hypertension Uncontrolled diabetes Hypercholesterolemia Asthma Discharge Disposition: Home Discharge Instruct/Medications Diet: Cardiac 2g Na,low cholest Activity: Light activity Follow Up/Referral: Follow up with the orthopedic for outpatient hip surgery Medications: none Patient says she goes to pain management Dr for her pain meds Scheduled Albuterol Sulfate (Albuterol Sulfate), 0.083 % IN QID, (Reported) Aspirin (Aspir-Low), 81 MG PO DAILY, (Reported) Atorvastatin Calcium (Atorvastatin Calcium), 1 TAB PO DAILY, (Reported) Benzonatate (Benzonatate), 100 MG PO PRN, (Reported) Cholecalciferol (D3-50), 50,000 UNIT PO Q14D, (Reported) Clopidogrel Bisulfate (Plavix), 1 TAB PO DAILY, (Reported) Dapagliflozin Propanediol (Farxiga), 10 MG PO DAILY, (Reported) Dicyclomine Hcl (Bentyl Capsule), 10 MG PO BID, (Reported) Ezetimibe (Zetia), 10 MG PO DAILY, (Reported) Fenofibrate (Fenofibrate), 145 MG OR DAILY, (Reported) Finerenone (Kerendia), 10 MG PO DAILY, (Reported) Hydrocodone-Acetaminophen ([place] 10-325 mg), 1 TAB PO QID, (Reported) Insulin Glargine (Lantus), 40 UNIT SC QAM, (Reported) Lactulose (Constulose), 10 GM PO DAILY, (Reported) Losartan Potassium (Losartan Potassium), 1 TAB PO DAILY, (Reported) Metoprolol Tartrate (Lopressor), 1 TAB PO BID, (Reported) Nifedipine (Nifedipine Er), 1 TAB PO DAILY, (Reported) Senna (Senokot), 2 TAB PO HS, (Reported) 35 (Time taken for discharge summary 35 minutes) Discharge Statement: "Patient was advised to return to the ER or call 911 if any headaches, dizziness, shortness of breath, chest pain, abdominal pain, bleeding, fevers, or worsening of medical condition. Patient was counseled about treatment plan, medications, possible side effects, patientverbalized understanding. All questions were answered to the best of my ability. This discharge took greater then 30 minutes in planning, reviewing documentation, counseling the patient, and discussing with other team members." ASSESSMENT ASSESSMENT Hospital Course Improved Assessment Acute left hip pain Chronic left hip osteoarthritis; Ortho consult by Dr. Antonio ruiz advised pain management physical therapy and outpatient elective left hip replacement once blood pressure and diabetes were controlled No acute fracture dislocation arrange stable Chronic left hip osteoarthritis, previously determined to be a surgical candidate. Uncontrolled Hypertension Uncontrolled diabetes Hypercholesterolemia Asthma Date of Service: Feb 14, 2025 Billing Provider: GENESIS HERNANDEZ MD Common Visit Codes: [id number] DISCH DAY >30min GENESIS HERNANDEZ MD Feb 14, 2025 12:57
[2025-02-14 13:00] VITALS: BP 142/89; PULSE 80; RESP 20; TEMP 98; O2SAT 100
[2025-02-14 14:11] VITALS: BP 141/85; PULSE 78; TEMP 36.6
[2025-02-14] MEDS ORDERED: hydrALAZINE HCL 20 MG/ML VL IV ONE (15:15)
== END 2025-02-14 16:00 | disposition home or self-care (01) | DRG 555 ==
LOC: ER 07:40 → EDBD 07:40 → OVERFLOW 11:26 → TELE-WESTW 17:35
PROVIDERS: ADMIT Family Medicine; ATTEND Family Medicine
DX: M25.552 Pain in left hip (principal); N17.0 Acute kidney failure with tubular necrosis; K57.32 Diverticulitis of large intestine without perforation or abscess without bleeding; M16.12 Unilateral primary osteoarthritis, left hip; I16.0 Hypertensive urgency; J45.909 Unspecified asthma, uncomplicated; E78.00 Pure hypercholesterolemia, unspecified; E11.9 Type 2 diabetes mellitus without complications; Z88.5 Allergy status to narcotic agent; Z88.8 Allergy status to other drugs, medicaments and biological substances; Z88.2 Allergy status to sulfonamides; Z82.49 Family history of ischemic heart disease and other diseases of the circulatory system; Z98.61 Coronary angioplasty status; Z98.51 Tubal ligation status; Z79.82 Long term (current) use of aspirin; Z79.899 Other long term (current) drug therapy; Z79.4 Long term (current) use of insulin
CPT/HCPCS: 36415; 72170; 73700; 80048; 80053; 81001; 82962; 84484; 85025; 93005; 96361; 96374; 97110; 97116; 97163; G0378; J1815; J2405